=== PATIENT | male | born 1955 | race Caucasian/White ===

== ENCOUNTER → 2018-03-31 08:58 | Outpatient (CLI) | payer OTHER, SELFPAY ==
--- NOTE | 2018-03-31 09:10 | US_ITS ---
US gallbladder HISTORY: Abdominal pain ITS.REASON: acid reflux ORDERING PHYSICIAN: Richard Ramirez MD PATIENT AGE: 62 years Comparison: None FINDINGS: PANCREAS: Poorly demonstrated due to overlying bowel gas. LIVER: No focal liver lesions demonstrated. Homogeneous echogenicity. No intrahepatic biliary ductal dilatation evident. There is increased echogenicity of liver consistent with fatty liver RIGHT KIDNEY: Unremarkable. Normal size and echogenicity. No hydronephrosis GALLBLADDER: No gallstones, gallbladder wall thickening, pericholecystic fluid, or biliary dilatation. There is a small amount sludge in the gallbladder IMPRESSION: 1. No gallstones. 2. Small amount gallbladder sludge 3. Fatty liver
== END ==
PROVIDERS: Visit Provider Internal Medicine
DX: E78.5 Hyperlipidemia, unspecified (principal); I10 Essential (primary) hypertension; I20.9 Angina pectoris, unspecified; I25.10 Atherosclerotic heart disease of native coronary artery without angina pectoris; K21.9 Gastro-esophageal reflux disease without esophagitis; R06.00 Dyspnea, unspecified; R10.9 Unspecified abdominal pain; R94.31 Abnormal electrocardiogram [ECG] [EKG]; R94.39 Abnormal result of other cardiovascular function study
CPT/HCPCS: 76705

== ENCOUNTER → 2018-06-02 15:46 | Outpatient (CLI) | payer OTHER, SELFPAY | PROVIDERS: PCP Nurse Practitioner Family; Visit Provider Physician Assistant | DX: G47.33 Obstructive sleep apnea (adult) (pediatric) (principal); R06.83 Snoring; R40.0 Somnolence ==

== ENCOUNTER → 2018-07-10 14:10 | Outpatient (CLI) | payer OTHER, SELFPAY | PROVIDERS: PCP Nurse Practitioner Family; Visit Provider Physician Assistant | DX: G47.33 Obstructive sleep apnea (adult) (pediatric) (principal); R40.0 Somnolence; R06.83 Snoring | CPT/HCPCS: 95806 ==

== ENCOUNTER → 2018-07-21 07:14 | Outpatient (CLI) | payer OTHER, SELFPAY ==
--- NOTE | 2018-07-21 07:17 | NM_ITS ---
CARDIOLITE SPECT MYOCARDIAL PERFUSION LEXISCAN, REST AND STRESS: History: Coronary artery disease, hypertension, hyperlipidemia, tobacco use, family history, shortness of breath and fatigue Procedure: Patient received a 0.4 mg of intravenous Lexiscan, resting heart rate was 93 beats prominent resting blood pressure 146/74, with Lexiscan maximum heart rate achieved was 106 bpm which is less than 85% of the maximum predicted heart rate and a blood pressure was 123/74. With Lexiscan patient complained of stomach discomfort Electrocardiogram: Resting electrocardiogram showed sinus rhythm, with Lexiscan there is less than 1.[address] segment depression noted from the baseline EKG. The EKG portion of the Lexiscan Myoview is nondiagnostic. Cardiac stress and resting SPECT images: Cardiac stress and resting SPECT images were obtained using technetium 99 Myoview 31.6 mCi at stress and 10.4 mCi at rest, gated SPECT further analysis of segmental wall motion and calculation of the ejection fraction also done. Cardiac stress and rest images show uniform myocardial activity without segmental perfusion abnormality, computer derived ejection fraction is over 65% with no regional wall motion abnormality, right ventricle is normal size and contractility. Conclusion: 1. The EKG portion of the Lexiscan Myoview is nondiagnostic. 2. No scintigraphic evidence of reversible ischemia seen, computer derived ejection fraction is over 65% with no regional wall motion abnormality, right ventricle is normal size and contractility. 3. Normal Lexiscan Myoview study.
== END ==
PROVIDERS: PCP Internal Medicine; Visit Provider Internal Medicine
DX: I25.10 Atherosclerotic heart disease of native coronary artery without angina pectoris (principal); R06.09 Other forms of dyspnea; R94.31 Abnormal electrocardiogram [ECG] [EKG]; E78.5 Hyperlipidemia, unspecified; I10 Essential (primary) hypertension; K21.9 Gastro-esophageal reflux disease without esophagitis; R53.83 Other fatigue
CPT/HCPCS: 78452; 93017; A9502; J2785

== ENCOUNTER 2018-09-28 17:12 | Emergency (ER) | payer OTHER, SELFPAY ==
[2018-09-28 17:13] VITALS: BP 151/90; PULSE 109; RESP 18; TEMP 36.7; O2SAT 96; BMI 33.2
--- NOTE | 2018-09-28 17:17 | XR_ITS ---
XR chest 2V HISTORY: Cough, chest pain, smoker, heart disease ITS.REASON: CP ORDERING PHYSICIAN: Inocencio Corral MD PATIENT AGE: 63 years COMPARISON: None FINDINGS: The cardiomediastinal silhouette and pulmonary vascularity are within normal limits. There is patchy density in the right lung base posteriorly consistent with an area of atelectasis or infiltrate. No acute bony findings. IMPRESSION: Patchy atelectasis or infiltrate in the right lung base posteriorly
[2018-09-28 17:25] VITALS: BP 147/84; PULSE 104; O2SAT 95
[2018-09-28 17:29] LABS: Basophils % 0.1 % (0.1-2.0); Eosinophils % 0.2 % (0.1-12.0); Hematocrit 41.2 % (42.0-52.0); Hemoglobin 13.7 g/dL (14.1-18.0); Lymphocytes # 0.9 K/mm3 (0.7-4.5); Lymphocytes % 5.9 % (10-50); Mean Corpuscular HGB Conc 33.4 g/dL (31.8-35.4); Mean Corpuscular Hemoglobin 31.1 pg (27.0-31.2); Mean Corpuscular Volume 93.3 fl (80-94); Mean Platelet Volume 7.1 fl (7.4-10.4); Monocytes # 0.3 K/mm3 (0.1-1.0); Monocytes % 2.2 % (1.7-9.3); Neutrophils # 13.9 K/mm3 (1.8-7.8); Neutrophils % 91.6 % (37.0-80.0); Platelet Count 371 K/mm3 (142-424); Red Blood Count 4.41 M/mm3 (4.60-6.20); Red Cell Distribution Width 13.7 % (11.5-17.5); White Blood Count 15.1 K/mm3 (4.8-10.8)
[2018-09-28 17:33] LABS: MANUAL DIFFERENTIAL MANUAL DIFFERENTIAL (MANUAL DIFF)
[2018-09-28 17:42] LABS: Alanine Aminotransferase 34 U/L (12-78); Albumin Level 3.4 gm/dL (3.4-5.0); Albumin/Globulin Ratio 0.7 (1.1-1.8); Alkaline Phosphatase 70 U/L (46-116); Anion Gap 14.3 mEq/L (5-15); Aspartate Amino Transferase 22 U/L (15-37); Bilirubin,Total 0.7 mg/dL (0.2-1.0); Blood Urea Nitrogen 11 mg/dL (7-18); Calcium 9.2 mg/dL (8.5-10.1); Carbon Dioxide 26 mmol/L (21.0-32.0); Chloride 101 mmol/L (98-107); Creatinine Clearance Estimated 98 mL/min (50-200); Creatinine,Serum 1.24 mg/dL (0.70-1.30); Estimated Glomerular Filt Rate 59 ml/min (>60); GFR (African American) 72 ML/MIN (>60); Globulin 4.9 gm/dl (1.3-3.2); Glucose 137 mg/dL (74-106); Potassium 4.3 mmoL/L (3.5-5.1); Sodium 137 mmol/L (136-145); Total Protein,Serum 8.3 gm/dL (6.4-8.2)
[2018-09-28 17:45] LABS: Troponin I < 0.02 ng/ml (0.00-0.06)
--- NOTE | 2018-09-28 17:45 | HMH.EDCP ---
ED Disposition Clinical Impression: Pneumonia, COPD (chronic obstructive pulmonary disease), Atypical chest pain, Smoker Disposition: Home, Self-Care Condition on Discharge: Fair Instructions: Pneumonia-Adult Additional Instructions: rec. cancel colonoscopy Prescriptions: levoFLOXacin [Levaquin 750mg tablet] 750 mg PO DAILY #7 tab predniSONE [Prednisone 50mg Tab] 50 mg PO DAILY 5 Days #5 tab Referrals: Provider,Referral, MD [Primary Care Provider] - Time of Disposition: 19:40 - Critical Care Critical Care Time: No Attestation: On 09/28/18, the high probability of a clinically significant, sudden or life threatening deterioration of the following system(s) required my full and direct attention, intervention and personal management. The time I documented below is in addition to time spent performing reported procedures but includes the following listed in this critical care notation. Medical Decision Making - Medical Records Medical records reviewed: Yes: I reviewed the patient's medical records. - Deepak Inquiry Pt receiving controlled substance: No Deepak was queried for this patient: No Vital Signs: 09/28/18 17:13 09/28/18 17:25 Temperature 98.0 F Temperature Source Temporal Artery Scan Pulse Rate [Right Brachial] 109 H 104 H Respiratory Rate 18 Blood Pressure [Right Arm] 151/90 H 147/84 H Blood Pressure Mean [Right Arm] 110 105 Blood Pressure Source [Right Arm] Automatic Cuff Blood Pressure Position [Right Arm] Sitting 02 Sat by Pulse Oximetry 96 95 Oxygen Delivery Method Room Air - Lab Data Lab results reviewed: Yes: I reviewed the patient's lab results. Lab Results 09/28/18 17:20: WBC 15.1 H, RBC 4.41 L, Hgb 13.7 L, Hct 41.2 L, MCV 93.3, MCH 31.1, MCHC 33.4, RDW 13.7, Plt Count 371, MPV 7.1 L, Neut % (Auto) 91.6 H, Lymph % (Auto) 5.9 L, [place] % (Auto) 2.2, Eos % (Auto) 0.2, Baso % (Auto) 0.1, Neut # (Auto) 13.9 H, Lymph # (Auto) 0.9, [place] # (Auto) 0.3, Eos # (Auto) 0.0, Baso # (Auto) 0.0, Total Counted 100, Neutrophils % (Manual) 92 H, Lymphocytes % (Manual) 5 L, Monocytes % (Manual) 3, Platelet Estimate Normal, RBC Morphology Normal 09/28/18 17:20: Troponin I < 0.02 09/28/18 17:20: Sodium 137, Potassium 4.3, Chloride 101, Carbon Dioxide 26, Anion Gap 14.3, BUN 11, Creatinine 1.24, Estimated Creat Clear 98, Estimated GFR 59, Est GFR ( Amer) 72, Glucose 137 H, Calcium 9.2, Total Bilirubin 0.7, AST 22, ALT 34, Alkaline Phosphatase 70, Total Protein 8.3 H, Albumin 3.4, Globulin 4.9 H, Albumin/Globulin Ratio 0.7 L 09/28/18 17:20: D-Dimer < 100 09/28/18 17:20: Lipase 67 L Result diagrams: 09/28/18 17:20 09/28/18 17:20 Orders (Tests/Meds): ED MEDICATIONS Generic Name Dose Route Start Last Admin Trade Name Freq PRN Reason Stop Dose Admin Levofloxacin 750 mg 09/28/18 19:34 Levaquin 750mg Tablet PO 09/28/18 19:35 ONCE ONE Protocol Methylprednisolone Sodium Succinate 125 mg 09/28/18 19:34 Solu-Medrol 125mg/2ml Vial IV 09/28/18 19:35 ONCE ONE Discontinued Medications Generic Name Dose Route Start Last Admin Trade Name Freq PRN Reason Stop Dose Admin Aspirin 324 mg 09/28/18 17:19 09/28/18 17:46 Aspirin 81mg Chewable Tablet PO 09/28/18 17:20 324 mg ONCE ONE Administration - HARMEET Score for Non-Stemi Age of Patient: 60-69 years old Heart Rate: 90-109 bpm Systolic Blood Pressure: 140-159 mmHg Serum Creatinine: 1.20-1.59 mg/dl CHF [place] Class: I-No CHF Other Risk Factors: None Non-Stemi Risk Score: 107 Chest Pain HPI - General Chief Complaint: Chest Pain Stated Complaint: CHEST PAIN Time Seen by Provider: 09/28/18 17:20 Mode of Arrival: Wheelchair Limitations: No Limitations Description of Symptoms (Recalled from ER Triage Doc. by RN): CHEST PAIN EPISODE THIS MORNING THAT DIDN'T LAST VERY LONG ; STATES IT WAS SIMILAR TO THE EVENT HE HAD EARLIER IN YEAR OUT OF STATE WHEN HE GOT STENTS - History of Present Illness HPI isaiah
--- NOTE | 2018-09-28 17:48 | ED_ITS ---
ED Disposition Clinical Impression: Pneumonia, COPD (chronic obstructive pulmonary disease), Atypical chest pain, Smoker Disposition: Home, Self-Care Condition on Discharge: Fair Instructions: Pneumonia-Adult Additional Instructions: rec. cancel colonoscopy Prescriptions: levoFLOXacin [Levaquin 750mg tablet] 750 mg PO DAILY #7 tab predniSONE [Prednisone 50mg Tab] 50 mg PO DAILY 5 Days #5 tab Referrals: Provider,Referral, MD [Primary Care Provider] - Time of Disposition: 19:40 - Critical Care Critical Care Time: No Attestation: On 09/28/18, the high probability of a clinically significant, sudden or life threatening deterioration of the following system(s) required my full and direct attention, intervention and personal management. The time I documented below is in addition to time spent performing reported procedures but includes the following listed in this critical care notation. Medical Decision Making - Medical Records Medical records reviewed: Yes: I reviewed the patient's medical records. - Deepak Inquiry Pt receiving controlled substance: No Deepak was queried for this patient: No Vital Signs: 09/28/18 17:13 09/28/18 17:25 Temperature 98.0 F Temperature Source Temporal Artery Scan Pulse Rate [Right Brachial] 109 H 104 H Respiratory Rate 18 Blood Pressure [Right Arm] 151/90 H 147/84 H Blood Pressure Mean [Right Arm] 110 105 Blood Pressure Source [Right Arm] Automatic Cuff Blood Pressure Position [Right Arm] Sitting 02 Sat by Pulse Oximetry 96 95 Oxygen Delivery Method Room Air - Lab Data Lab results reviewed: Yes: I reviewed the patient's lab results. Lab Results 09/28/18 17:20: WBC 15.1 H, RBC 4.41 L, Hgb 13.7 L, Hct 41.2 L, MCV 93.3, MCH 31.1, MCHC 33.4, RDW 13.7, Plt Count 371, MPV 7.1 L, Neut % (Auto) 91.6 H, Lymph % (Auto) 5.9 L, [place] % (Auto) 2.2, Eos % (Auto) 0.2, Baso % (Auto) 0.1, Neut # (Auto) 13.9 H, Lymph # (Auto) 0.9, [place] # (Auto) 0.3, Eos # (Auto) 0.0, Baso # (Auto) 0.0, Total Counted 100, Neutrophils % (Manual) 92 H, Lymphocytes % (Manual) 5 L, Monocytes % (Manual) 3, Platelet Estimate Normal, RBC Morphology Normal 09/28/18 17:20: Troponin I < 0.02 09/28/18 17:20: Sodium 137, Potassium 4.3, Chloride 101, Carbon Dioxide 26, Anion Gap 14.3, BUN 11, Creatinine 1.24, Estimated Creat Clear 98, Estimated GFR 59, Est GFR ( Amer) 72, Glucose 137 H, Calcium 9.2, Total Bilirubin 0.7, AST 22, ALT 34, Alkaline Phosphatase 70, Total Protein 8.3 H, Albumin 3.4, Globulin 4.9 H, Albumin/Globulin Ratio 0.7 L 09/28/18 17:20: D-Dimer < 100 09/28/18 17:20: Lipase 67 L Result diagrams: 09/28/18 17:20 09/28/18 17:20 Orders (Tests/Meds): ED MEDICATIONS Generic Name Dose Route Start Last Admin Trade Name Freq PRN Reason Stop Dose Admin Levofloxacin 750 mg 09/28/18 19:34 Levaquin 750mg Tablet PO 09/28/18 19:35 ONCE ONE Protocol Methylprednisolone Sodium Succinate 125 mg 09/28/18 19:34 Solu-Medrol 125mg/2ml Vial IV 09/28/18 19:35 ONCE ONE Discontinued Medications Generic Name Dose Route Start Last Admin Trade Name Freq PRN Reason Stop Dose Admin Aspirin 324 mg 09/28/18 17:19 09/28/18 17:46
[2018-09-28 17:49] LABS: Lipase 67 u/L (73-393)
[2018-09-28 17:50] LABS: D-Dimer < 100 ng/mL (0-400)
[2018-09-28 18:05] LABS: Lymphocytes % 5 % (10-50); Monocytes % 3 % (2-9); Neutrophils % 92 % (42-76); Total Cells Counted 100
[2018-09-28 18:06] LABS: Platelet Estimate Normal; RBC Morphology Normal
[2018-09-28 19:55] VITALS: BP 140/87; PULSE 65; RESP 20; TEMP 37; O2SAT 98
== END 2018-09-28 19:56 | disposition home or self-care (01) ==
PROVIDERS: Emergency Provider Emergency Medicine
DX: J18.9 Pneumonia, unspecified organism (principal); J44.9 Chronic obstructive pulmonary disease, unspecified; I25.10 Atherosclerotic heart disease of native coronary artery without angina pectoris; I10 Essential (primary) hypertension; E78.5 Hyperlipidemia, unspecified; E03.9 Hypothyroidism, unspecified; F17.210 Nicotine dependence, cigarettes, uncomplicated; Z79.899 Other long term (current) drug therapy
CPT/HCPCS: 71046; 80053; 83690; 84484; 85007; 85025; 85378; 93005; 96374; 99283

== ENCOUNTER 2019-06-16 23:43 | Observation (INO) ==
[2019-06-17 00:12] LABS: Basophils # 0.1 K/mm3 (0-0.2); Basophils % 0.9 % (0.1-2.0); Eosinophils # 0.1 K/mm3 (0.0-0.4); Eosinophils % 1.5 % (0.1-12.0); Hematocrit 40.4 % (42.0-52.0); Hemoglobin 12.5 g/dL (14.1-18.0); Lymphocytes # 1.8 K/mm3 (0.7-4.5); Lymphocytes % 30.4 % (10-50); Mean Corpuscular HGB Conc 30.9 g/dL (31.8-35.4); Mean Corpuscular Volume 94.2 fl (80-94); Mean Platelet Volume 7.5 fl (7.4-10.4); Monocytes # 0.6 K/mm3 (0.1-1.0); Monocytes % 10.5 % (1.7-9.3); Neutrophils # 3.4 K/mm3 (1.8-7.8); Neutrophils % 56.6 % (37.0-80.0); Platelet Count 310 K/mm3 (142-424); Red Blood Count 4.29 M/mm3 (4.60-6.20); Red Cell Distribution Width 14.6 % (11.5-17.5)
[2019-06-17 00:32] LABS: Albumin Level 3.5 g/dL (3.4-5.0); Albumin/Globulin Ratio 0.7 (1.1-1.8); Anion Gap 13.8 mEq/L (5-15); Bilirubin,Total 0.3 mg/dL (0.2-1.0); Calcium 8.3 mg/dL (8.5-10.1); Globulin 4.7 gm/dl (1.3-3.2); Thyroid Stimulating Hormone 5.28 uIU/ml (0.358-3.740); Total Protein,Serum 8.2 g/dL (6.4-8.2)
--- NOTE | 2019-06-17 01:32 | Emergency Department Note ---
ED Disposition Clinical Impression: Chest pain Qualifiers: Chest pain type: unspecified Qualified Code(s): R07.9 - Chest pain, unspecified Disposition: Admitted as Observation Condition on Discharge: Good - Critical Care Critical Care Time: No Attestation: On 06/16/19, the high probability of a clinically significant, sudden or life threatening deterioration of the following system(s) required my full and direct attention, intervention and personal management. The time I documented below is in addition to time spent performing reported procedures but includes the following listed in this critical care notation. Medical Decision Making - Medical Records Medical records reviewed: Yes: I reviewed the patient's medical records. - Deepak Inquiry Pt receiving controlled substance: No Vital Signs: 06/16/19 23:54 06/17/19 00:38 06/17/19 01:32 Temperature 97.7 F Temperature Source Oral Pulse Rate [Right Brachial] 96 H 81 78 Respiratory Rate 18 Blood Pressure [Right Arm] 173/69 H 132/72 131/45 L Blood Pressure Mean [Right Arm] 103 92 73 Blood Pressure Source [Right Arm] Automatic Cuff Automatic Cuff Automatic Cuff Blood Pressure Position [Right Arm] Sitting Sitting Sitting 02 Sat by Pulse Oximetry 96 94 L 95 Oxygen Delivery Method Room Air Room Air 06/17/19 02:07 06/17/19 02:30 Temperature Temperature Source Pulse Rate [Right Brachial] 84 76 Respiratory Rate Blood Pressure [Right Arm] 149/79 H 140/77 Blood Pressure Mean [Right Arm] 102 98 Blood Pressure Source [Right Arm] Automatic Cuff Automatic Cuff Blood Pressure Position [Right Arm] Sitting Sitting 02 Sat by Pulse Oximetry 97 95 Oxygen Delivery Method Room Air - Lab Data Lab results reviewed: Yes: I reviewed the patient's lab results. Lab Results 06/16/19 23:49: WBC 6.0, RBC 4.29 L, Hgb 12.5 L, Hct 40.4 L, MCV 94.2 H, MCH 29.1, MCHC 30.9 L, RDW 14.6, Plt Count 310, MPV 7.5, Neut % (Auto) 56.6, Lymph % (Auto) 30.4, [place] % (Auto) 10.5 H, Eos % (Auto) 1.5, Baso % (Auto) 0.9, Neut # (Auto) 3.4, Lymph # (Auto) 1.8, [place] # (Auto) 0.6, Eos # (Auto) 0.1, Baso # (Auto) 0.1 06/16/19 23:49: Sodium 142, Potassium 3.8, Chloride 104, Carbon Dioxide 28, Anion Gap 13.8, BUN 14, Creatinine 1.13, Estimated Creat Clear 99, Estimated GFR 66, Est GFR ( Amer) 80, Glucose 104, Calcium 8.3 L, Total Bilirubin 0.3, AST 21, ALT 22, Alkaline Phosphatase 62, Troponin I 0.10 H, Total Protein 8.2, Albumin 3.5, Globulin 4.7 H, Albumin/Globulin Ratio 0.7 L, TSH 5.28 H 06/16/19 23:49: B-Natriuretic Peptide 10 Result diagrams: 06/16/19 23:49 06/16/19 23:49 Orders (Tests/Meds): ORDERS Category Date Time Status Chest XR 2 view (NOT portable) [XR chest 2V] Stat Exams 06/17/19 00:00 Taken Troponin I Q3H Lab 06/17/19 03:00 Ordered Troponin I Q3H Lab 06/17/19 06:00 Ordered - Radiology Data #1 Image(s): Chest Image Reviewed: Yes I reviewed the patient's radiology image Preliminary Findings: Normal/NAD - ECG Data Tracing #1 Normal Sinus Rhythm: Yes Ischemic changes: non-specific ST-T wave changes - Physician Consults Physician Consulted: gerard Reason -: Admission Dizzy HPI - General Chief Complaint: Dizziness Stated Complaint: Hypertension Time Seen by Provider: 06/17/19 00:30 Mode of Arrival: EMS Source of Information: Patient, Spouse, EMS, Medical Record Limitations: No Limitations Description of Symptoms (Recalled from ER Triage Doc. by RN): pt arrives after having a hypertensive episode at [facility]. according to patient, he was fine one minute then "felt like it was out of body the next"; currently denies chest pain, but said he had recent discomfort. denies dyspnea, slightly nauseated however on scene. pt was transported via ems after checking his bp with a home machine and found it to be elevated. - History of Present Illness HPI Narrative: pt with 2 episodes at home of feeling sweaty and nausea with dizzyness and lt upper ext pain - he has hx of cad with stent in 04/18 and uses tob - feels better at this time MD complaint: dizziness, near syncope Onset (ago): hour(s) Timing: sudden onset History of similar episodes: No History of trauma: No Severity: moderate Associated symptoms: diaphoresis - Related Data Home Medications Medication Instructions Recorded Confirmed aspirin 81 mg tablet,delayed 81 mg PO DAILY 03/22/18 01/17/19 release Pantoprazole Sodium [Protonix 40mg 40 mg PO DAILY 09/26/18 01/17/19 tablet] levothyroxine 88 mcg tablet 125 mcg PO DAILY tab 01/17/19 01/17/19 naproxen 500 mg tablet 500 mg PO DAILY tab 01/17/19 01/17/19 Previous Rx's Medication Instructions Recorded amlodipine 5 mg tablet 5 mg PO DAILY #30 tab 01/17/19 atorvastatin 80 mg tablet 80 mg PO DAILY #30 tab 01/17/19 clopidogrel 75 mg tablet 75 mg PO DAILY #30 tab 01/17/19 losartan 100 mg tablet 100 mg PO DAILY #30 tab 02/06/19 nitroglycerin 0.4 mg sublingual 0.4 mg SUBLINGUAL Q5-15M PRN #25 05/21/19 tablet tab Allergies Allergy/AdvReac Type Severity Reaction Status Date / Time No Known Allergies Allergy Verified 01/17/19 09:46 [facility] History - Hepatitis A Screen Drug use history?: No High risk sexual behaviors?: No History of sexually transmitted infection?: No Currently employed?: No Childcare worker?: No Do you have indoor plumbing?: Yes Do you have electricity?: Yes Attestation statement:: This patient has been screened for Hepatitis A risk factors. I have reviewed the patient's past medical history: Yes Medical History: Reports:: Coronary Artery Disease, Hyperlipidemia, Hypertension, Lung Disease Denies:: Diabetes Mellitus Type 1, Diabetes Mellitus Type 2, Internal Pacemaker, Seizures Other Medical History: Reports: Hypothyroidism Laterality Cases: Bilateral: Tonsillectomy Other Surgeries: Yes: Cardiac Catheterization, Coronary Stent, Other. No: Pacemaker Amputation: No Fractures: No - Social History Smoking Status: Current every day smoker Tobacco Type: cigarettes # Packs/Day (cigarettes): 1 #Yrs smoked (if former smoker): 48 Alcohol Intake: never Substance Use Type: former substance user, methamphetamine, crack/cocaine, marijuana Occupational Status: employed Household Members: significant other Family Hx:: Coronary Artery Disease, Heart Attack Comment: Father- at 57 from a [place]. Brother-CAD ROS Obtained: Yes All systems reviewed & no additional complaints - Constitutional Constitutional: Denies fever(s) - Eyes Eyes: Denies change in vision - ENT Ears, Nose, Mouth, and Throat: Reports dizziness, Denies sore throat - Cardiovascular Cardiovascular: Reports as per HPI, Denies chest pain, Denies dyspnea, Reports lightheadedness - Respiratory Respiratory: No cough - Gastrointestinal Gastrointestingal: Denies: abdominal pain - Genitourinary Male Genitourinary: Denies hematuria - Musculoskeletal Musculoskeletal: Denies joint pain, Denies joint swelling - Integumentary/Breasts Skin/Breast: Denies rash - Neurologic Neurologic: Denies confusion, Denies focal weakness, Denies seizure-like activity Physical Exam - General General appearance: alert, in no apparent distress - Head Head exam: normocephalic - Eye Eye exam: Present: PERRL, EOMI. Absent: scleral icterus - ENT ENT exam: Present: mucous membranes dry - Neck Neck exam: Present: trachea midline - Respiratory Respiratory exam: Present: normal lung sounds bilaterally. Absent: respiratory distress - Cardiovascular Cardiovascular exam: Present: regular rate, systolic murmur, +S4 - Abdominal Exam Abdominal exam: Present: soft. Absent: tenderness, guarding, rebound, rigidity - Extremities Exam Extremities exam: Present: full ROM. Absent: calf tenderness - Neurological Exam Neurological exam: Present: alert, oriented X3, CN II-XII intact - Psychiatric Psychiatric exam: Present: normal affect - Skin Skin exam: Absent: rash
[2019-06-17 08:00] LABS: Basophils # 0.1 K/mm3 (0-0.2); Basophils % 0.8 % (0.1-2.0); Eosinophils # 0.1 K/mm3 (0.0-0.4); Eosinophils % 1.3 % (0.1-12.0); Hematocrit 37.2 % (42.0-52.0); Hemoglobin 11.8 g/dL (14.1-18.0); Lymphocytes % 36.2 % (10-50); Mean Corpuscular HGB Conc 31.8 g/dL (31.8-35.4); Mean Corpuscular Volume 93.9 fl (80-94); Mean Platelet Volume 7.6 fl (7.4-10.4); Monocytes # 0.4 K/mm3 (0.1-1.0); Monocytes % 8.2 % (1.7-9.3); Neutrophils # 2.9 K/mm3 (1.8-7.8); Neutrophils % 53.4 % (37.0-80.0); Platelet Count 283 K/mm3 (142-424); Red Blood Count 3.96 M/mm3 (4.60-6.20); Red Cell Distribution Width 14.6 % (11.5-17.5); White Blood Count 5.4 K/mm3 (4.8-10.8)
[2019-06-17 08:18] LABS: Anion Gap 9.9 mEq/L (5-15); Calcium 8.3 mg/dL (8.5-10.1); Chol/HDL Ratio 3.7 (1-3.5)
--- NOTE | 2019-06-17 09:45 | Pharmacy Consult Notes ---
[facility] Pharmacy VTE Monitoring - Patient Demographics Admission date: 06/17/19 Report Date: 06/17/19 Time: 09:45 Allergies/Adverse Reactions: Patient Allergies No Known Allergies Allergy (Verified 01/17/19 09:46) Height: 1.83 m Weight: 96.19 kg Patient Problems: Current Active Problems Chest pain (Acute) - VTE Risk Labs: VTE Related Lab Results Hgb 11.8 g/dL (14.1-18.0) L 06/17/19 07:25 Hct 37.2 % (42.0-52.0) L 06/17/19 07:25 Plt Count 283 K/mm3 (142-424) 06/17/19 07:25 BUN 11 mg/dL (7-18) 06/17/19 07:25 Creatinine 1.06 mg/dL (0.70-1.30) 06/17/19 07:25 Estimated Creat Clear 100 mL/min (50-200) 06/17/19 07:25 Was VTE Risk Assessment Performed: No VTE Score: 4 VTE Risk Level: Low Risk - Prophylaxis Types of VTE Prophylaxis: TEDS Knee High (BEN HOSE ORDER PLACED)
--- NOTE | 2019-06-17 13:27 | History & Physical Report ---
*Admission Date: 06/17/19 *Chief complaint: anginal pain, legs weak, left arm tingling. *History of present illness: Pleasant 63-year-old gentleman with extensive history of tobacco abuse, hypertension, coronary artery disease, hyperlipidemia who presented to the ER yesterday via EMS due to onset of left arm pain and weakness in his legs. He states he was at home yesterday evening when he began to notice a warming sensation and weakness in his legs going from his feet and progressive up his thighs. It was around this time as well he started to feel tingling pain radiating down his left arm. He had his grabbed his home blood pressure cuff and found that his blood pressure was approximately 170-180/100. He felt very weak, difficulty walking, "was walking like those people that have a stroke". He denies any chest pain, shortness of breath, nausea, vomiting, headache, confusion. No facial droop or weakness. Has been taking his losartan 100 mg daily and amlodipine 5 mg daily in the morning without side effect. Of note was cathed by cardiology in April 2018 with placement of stent in his LAD and is on dual antiplatelet therapy, statin, ARB at this time. Initial labs concerning for slight elevation in troponin with vitals showing hypertension. EKG with no ST changes, T wave abnormalities, and normal sinus rhythm. Admitted for observation overnight with serial troponins. Of note he is not on a beta-sukhdev. Assessment today, patient is pain-free. Stable on telemetry with mild hypertension but no longer having symptoms of arm pain or warmth/tingling in his legs. Discussed his concerning findings/presentation with him. Patient has risk factors of previous coronary artery disease necessitating stenting, extensive smoking history, Cardiology consult placed, will have them see patient in the morning to discuss further advancement of medical management versus more invasive work-up. [facility] History I have reviewed the patient's past medical history: Yes Medical History: Reports:: Coronary Artery Disease, Hyperlipidemia, Hypertension, Lung Disease Denies:: Diabetes Mellitus Type 1, Diabetes Mellitus Type 2, Internal Pacemaker, Seizures *Have you ever received a pneumonia vaccine?: No *Have you received a flu vaccine this season?: Yes Other Medical History: Reports: Hypothyroidism Laterality Cases: Bilateral: Tonsillectomy Other Surgeries: Yes: Cardiac Catheterization, Coronary Stent, Other. No: Pacemaker Amputation: No Fractures: No - *Social History Educational Level: Completed GED/General Educational Development Smoking Status: Current every day smoker Tobacco Type: cigarettes # Packs/Day (cigarettes): 2 #Yrs smoked (if former smoker): 48 Alcohol Intake: never Substance Use Type: former substance user, methamphetamine, crack/cocaine, marijuana *Occupational Status:: employed Household Members: significant other *Travel in the last 8 weeks: Inside the [place] Family Hx:: Heart Attack, Hyperlipidemia, Alcoholism Review of Systems - Review of Systems Review of systems:: pertinent systems reviewed and negative unless documented below (14 point review of systems performed, pertinent positives and negatives as per HPI) - *Neurologic Reports dizziness, Denies confusion, Denies localized weakness, Denies seizure- like activity Meds Home Medications Medication Instructions Recorded Confirmed Type aspirin 81 mg tablet,delayed 81 mg PO DAILY 03/22/18 06/17/19 History release Pantoprazole Sodium [Protonix 40mg 40 mg PO DAILY 09/26/18 06/17/19 History tablet] amlodipine 5 mg tablet 5 mg PO DAILY #30 tab 01/17/19 06/17/19 Rx atorvastatin 80 mg tablet 80 mg PO DAILY #30 tab 01/17/19 06/17/19 Rx clopidogrel 75 mg tablet 75 mg PO DAILY #30 tab 01/17/19 06/17/19 Rx levothyroxine 88 mcg tablet 125 mcg PO DAILY tab 01/17/19 06/17/19 History naproxen 500 mg tablet 500 mg PO DAILY tab 01/17/19 06/17/19 History losartan 100 mg tablet 100 mg PO DAILY #30 tab 02/06/19 06/17/19 Rx nitroglycerin 0.4 mg sublingual 0.4 mg SUBLINGUAL Q5-15M PRN #25 05/21/19 06/17/19 Rx tablet tab buPROPion HCL [Wellbutrin SR 150mg 150 mg PO BID 06/17/19 06/17/19 History Tablet] Allergies Allergy/AdvReac Type Severity Reaction Status Date / Time No Known Allergies Allergy Verified 01/17/19 09:46 Exam Vital signs and Labs for Last 24 Hours: Temp Pulse Resp BP Pulse Ox 98.1 F 90 18 148/62 H 95 06/17/19 11:39 06/17/19 12:00 06/17/19 11:39 06/17/19 11:39 06/17/19 11:39 Laboratory Results - last 24 hr 06/16/19 23:49: WBC 6.0, RBC 4.29 L, Hgb 12.5 L, Hct 40.4 L, MCV 94.2 H, MCH 29.1, MCHC 30.9 L, RDW 14.6, Plt Count 310, MPV 7.5, Neut % (Auto) 56.6, Lymph % (Auto) 30.4, [place] % (Auto) 10.5 H, Eos % (Auto) 1.5, Baso % (Auto) 0.9, Neut # (Auto) 3.4, Lymph # (Auto) 1.8, [place] # (Auto) 0.6, Eos # (Auto) 0.1, Baso # (Auto) 0.1 06/16/19 23:49: Sodium 142, Potassium 3.8, Chloride 104, Carbon Dioxide 28, Anion Gap 13.8, BUN 14, Creatinine 1.13, Estimated Creat Clear 99, Estimated GFR 66, Est GFR ( Amer) 80, Glucose 104, Calcium 8.3 L, Total Bilirubin 0.3, AST 21, ALT 22, Alkaline Phosphatase 62, Troponin I 0.10 H, Total Protein 8.2, Albumin 3.5, Globulin 4.7 H, Albumin/Globulin Ratio 0.7 L, TSH 5.28 H 06/16/19 23:49: B-Natriuretic Peptide 10 06/17/19 03:15: Troponin I 0.10 H 06/17/19 07:25: WBC 5.4, RBC 3.96 L, Hgb 11.8 L, Hct 37.2 L, MCV 93.9, MCH 29.9, MCHC 31.8, RDW 14.6, Plt Count 283, MPV 7.6, Neut % (Auto) 53.4, Lymph % (Auto) 36.2, [place] % (Auto) 8.2, Eos % (Auto) 1.3, Baso % (Auto) 0.8, Neut # (Auto) 2.9, Lymph # (Auto) 2.0, [place] # (Auto) 0.4, Eos # (Auto) 0.1, Baso # (Auto) 0.1 06/17/19 07:25: Sodium 143, Potassium 3.9, Chloride 108 H, Carbon Dioxide 29, Anion Gap 9.9, BUN 11, Creatinine 1.06, Estimated Creat Clear 100, Estimated GFR 71, Est GFR ( Amer) 86, Glucose 97, Calcium 8.3 L, Magnesium 1.7, Troponin I 0.10 H, Triglycerides 133, Cholesterol 100 L, LDL Cholesterol 46, VLDL Cholesterol 27, HDL Cholesterol 27, Cholesterol/HDL Ratio 3.7 H I & O for Last 24 hours: Intake & Output 06/14/19 06/15/19 06/16/19 06/17/19 23:59 23:59 23:59 23:59 Intake Total 120 / 120 Balance 120 / 120 Weight 102.058 kg 96.19 kg - Constitutional no acute distress Comments: overweight - *Routine HEENT Exam Head: Present: normocephalic Eye: Present: EOMI, PERRL ENT: Present: mucous membranes moist - *Routine Neck Exam Present: supple. Absent: lymphadenopathy - *Routine Respiratory Exam Present: wheezes. Absent: accessory muscle use, rhonchi, crackles Comments: Good air movement bilaterally - *Routine Cardiovascular Exam Present: RRR. Absent: murmur - *Routine Abdominal Exam Present: soft, normoactive bowel sounds. Absent: tenderness - *Routine Extremities Exam Absent: cyanosis, clubbing, edema - *Routine Skin Exam Present: warm. Absent: rash - *Routine Neurological Exam Present: alert, oriented X3 Assessment and Plan (1) Tobacco use disorder Current visit: Yes Status: Chronic Category: Medical Code(s): F17.200 - Nicotine dependence, unspecified, uncomplicated (2) NSTEMI (non-ST elevated myocardial infarction) Current visit: Yes Status: Acute Category: Medical Code(s): I21.4 - Non-ST elevation (NSTEMI) myocardial infarction (3) Chest pain Current visit: Yes Status: Resolved Qualifiers: Chest pain type: unspecified Qualified Code(s): R07.9 - Chest pain, unspecified Category: Medical Code(s): R07.9 - Chest pain, unspecified (4) COPD (chronic obstructive pulmonary disease) Current visit: No Status: Chronic Category: Medical Code(s): J44.9 - Chronic obstructive pulmonary disease, unspecified (5) CAD (coronary artery disease) Current visit: No Status: Chronic Qualifiers: Coronary Disease-Associated Artery/Lesion type: [place] artery [place] vs. transplanted heart: [place] heart Associated angina: without angina Qualified Code(s): I25.10 - Atherosclerotic heart disease of [place] coronary artery without angina pectoris Category: Medical Code(s): I25.10 - Atherosclerotic heart disease of [place] coronary artery without angina pectoris (6) HHD (hypertensive heart disease) Current visit: No Status: Chronic Qualifiers: Heart failure presence: without heart failure Qualified Code(s): I11.9 - Hypertensive heart disease without heart failure Category: Medical Code(s): I11.9 - Hypertensive heart disease without heart failure (7) HLD (hyperlipidemia) Current visit: No Status: Chronic Qualifiers: Hyperlipidemia type: unspecified Qualified Code(s): E78.5 - Hyperlipidemia, unspecified Category: Medical Code(s): E78.5 - Hyperlipidemia, unspecified - Assessment and plan all Dx Assessment and Plan for all problems:: 63-year-old gentleman with history of coronary artery disease and stent a little over a year ago who presented with NSTEMI, hypertensive urgency, and unstable angina. Improvement with decrease in his blood pressure. Troponins monitored with stable serial results. Continue home medications, will increase amlodipine. Additionally have added low-dose beta-sukhdev and long-acting nitrate. Consult for cardiology placed, further management pending their recommendations. Breathing treatments for COPD. Monitor on telemetry. Patient at high risk for repeat event, condition stable, prognosis fair. Full code Continues to require inpatient management Resumed bupropion for smoking cessation, declined NRT patch at this time.
[2019-06-18 06:41] LABS: Basophils # 0.1 K/mm3 (0-0.2); Basophils % 0.6 % (0.1-2.0); Eosinophils # 0.2 K/mm3 (0.0-0.4); Eosinophils % 1.9 % (0.1-12.0); Hematocrit 37.8 % (42.0-52.0); Lymphocytes # 2.4 K/mm3 (0.7-4.5); Lymphocytes % 24.8 % (10-50); Mean Corpuscular HGB Conc 31.7 g/dL (31.8-35.4); Mean Corpuscular Volume 92.1 fl (80-94); Mean Platelet Volume 7.3 fl (7.4-10.4); Monocytes # 0.6 K/mm3 (0.1-1.0); Monocytes % 6.1 % (1.7-9.3); Neutrophils # 6.4 K/mm3 (1.8-7.8); Neutrophils % 66.7 % (37.0-80.0); Platelet Count 316 K/mm3 (142-424); Red Blood Count 4.11 M/mm3 (4.60-6.20); Red Cell Distribution Width 14.5 % (11.5-17.5); White Blood Count 9.5 K/mm3 (4.8-10.8)
[2019-06-18 06:54] LABS: Calcium 8.5 mg/dL (8.5-10.1)
--- NOTE | 2019-06-18 07:58 | Consult Report ---
History of Present Illness Consult date: 06/18/19 Requesting physician: Solo Byrd Consult reason: hypertension Chief complaint: Elevated BP, left arm discomfort Additional Medical History:: 1. CAD A. [facility], 04/2018, ANGIOGRAPHIC RESULTS: 1. The left main artery normal 2. The left anterior descending artery has proximal 50-70% stenosis with remaining vessel widely patent. 2 diagonal arteries are present in the proximal and mid segment both vein jailed by the stent however having DARREL-3 flow distally 3. The circumflex artery is a nondominant yet still large vessel giving rise to a 3 mm first obtuse marginal artery has proximal 50-60% stenosis 4. The right coronary artery is a dominant vessel and has mid vessel 40 followed by 50% stenosis with distal 40 and 50% stenoses in the posterior lateral branch 5. The MOORE ventriculogram reveals normal 65% 6. The left ventricular end-diastolic pressure 20 mmHg IMPRESSION: 1. Hemodynamically severe disease in the proximal LAD producing an FFR index of 0.77 2. Successful stenting of the proximal to mid LAD severe disease reduced to 0% with 1 drug-eluting stent 3. Moderate to severe disease in the first obtuse marginal artery 4. Moderate to severe disease in the dominant right coronary artery which produced an FFR index of 0.85 5. Normal ejection fraction 6. Mildly elevated LVEDP PLAN: 1. Brilinta and aspirin 2. LDL less than 55 3. Avoidance of tobacco products 4. Cardiac rehabilitation 5. Risk factor modification 6. Continue with antianginal medications. Should patient experiences recalcitrant angina consideration will be given to perform FFR of the obtuse marginal artery and possibly the diagonal arteries however I believe these 2 lesions are not going to be the etiology of patient's angina although it is always possible. We will continue to evaluate a should clinically B. [facility] myoview, 05/2018, 1. The EKG portion of the Lexiscan Myoview is nondiagnostic. 2. No scintigraphic evidence of reversible ischemia seen, computer derived ejection fraction is over 65% with no regional wall motion abnormality, right ventricle is normal size and contractility. 3. Normal Lexiscan Myoview study 2. Tobacco use 3. HTN 4. HLD History of present illness: 63 yo WM with tobacco use and prior coronary stenting in 04/2018 presented to ER via EMS for evaluation of elevated BP in setting of brief blurred vision, RLE cramping and LUE numbness/tingling with associated nausea. No chest pain or increased SOA noted. Denies recent exertional CP. Some recent stress with attempting to renew his job (unable to lift 65 lbs from floor to overhead without stopping). BP noted to be elevated at home but highest documented BP in ER is 173/69 mm Hg. Pt was started on home meds plus BB and long acting nitrate with control of BP acheived and no further symptoms noted. Elevated troponins noted at 0.1 X 3. EKG is sinus without acute changes. History of LAD SAM in 04/2018 with remaining branch disease treated medically. He remains on DAPT. Cardiology consulted for evaluation. [facility] History Medical History: Reports:: Coronary Artery Disease, Hyperlipidemia, Hypertension, Lung Disease Denies:: Diabetes Mellitus Type 1, Diabetes Mellitus Type 2, Internal Pacemaker, Seizures *Have you ever received a pneumonia vaccine?: No *Have you received a flu vaccine this season?: Yes Other Medical History: Reports: Hypothyroidism Laterality Cases: Bilateral: Tonsillectomy Other Surgeries: Yes: Cardiac Catheterization, Coronary Stent, Other. No: Pacemaker Amputation: No Fractures: No - *Social History Educational Level: Completed GED/General Educational Development Smoking Status: Current every day smoker Tobacco Type: cigarettes # Packs/Day (cigarettes): 2 #Yrs smoked (if former smoker): 48 Alcohol Intake: never Substance Use Type: former substance user, methamphetamine, crack/cocaine, marijuana *Occupational Status:: employed Household Members: significant other *Travel in the last 8 weeks: Inside the [facility] Family Hx:: Heart Attack, Hyperlipidemia, Alcoholism Meds Home Medications Medication Instructions Recorded Confirmed Type aspirin 81 mg tablet,delayed 81 mg PO DAILY 03/22/18 06/17/19 History release Pantoprazole Sodium [Protonix 40mg 40 mg PO DAILY 09/26/18 06/17/19 History tablet] amlodipine 5 mg tablet 5 mg PO DAILY #30 tab 01/17/19 06/17/19 Rx atorvastatin 80 mg tablet 80 mg PO DAILY #30 tab 01/17/19 06/17/19 Rx clopidogrel 75 mg tablet 75 mg PO DAILY #30 tab 01/17/19 06/17/19 Rx levothyroxine 88 mcg tablet 125 mcg PO DAILY tab 01/17/19 06/17/19 History naproxen 500 mg tablet 500 mg PO DAILY tab 01/17/19 06/17/19 History losartan 100 mg tablet 100 mg PO DAILY #30 tab 02/06/19 06/17/19 Rx nitroglycerin 0.4 mg sublingual 0.4 mg SUBLINGUAL Q5-15M PRN #25 05/21/19 06/17/19 Rx tablet tab buPROPion HCL [Wellbutrin SR 150mg 150 mg PO BID 06/17/19 06/17/19 History Tablet] Allergies Allergy/AdvReac Type Severity Reaction Status Date / Time No Known Allergies Allergy Verified 01/17/19 09:46 Review of Systems - Review of Systems Review of systems:: pertinent systems reviewed and negative unless documented below - *Cardiovascular Denies chest pain, Denies shortness of breath - *Respiratory Denies cough - *Gastrointestinal Reports nausea, Denies loose stools, Denies vomiting - *Genitourinary Denies blood in urine - *Musculoskeletal Reports back pain, Denies joint pain - *Neurologic Reports dizziness, Denies confusion, Denies localized weakness, Denies seizure- like activity Exam Vital signs and Labs for Last 24 Hours: Temp Pulse Resp BP Pulse Ox 98.5 F 81 16 110/57 L 90 L 06/18/19 04:00 06/18/19 04:00 06/18/19 04:00 06/18/19 04:00 06/18/19 04:00 Laboratory Results - last 24 hr 06/17/19 07:25: WBC 5.4, RBC 3.96 L, Hgb 11.8 L, Hct 37.2 L, MCV 93.9, MCH 29.9, MCHC 31.8, RDW 14.6, Plt Count 283, MPV 7.6, Neut % (Auto) 53.4, Lymph % (Auto) 36.2, [place] % (Auto) 8.2, Eos % (Auto) 1.3, Baso % (Auto) 0.8, Neut # (Auto) 2.9, Lymph # (Auto) 2.0, [place] # (Auto) 0.4, Eos # (Auto) 0.1, Baso # (Auto) 0.1 06/17/19 07:25: Sodium 143, Potassium 3.9, Chloride 108 H, Carbon Dioxide 29, Anion Gap 9.9, BUN 11, Creatinine 1.06, Estimated Creat Clear 100, Estimated GFR 71, Est GFR ( Amer) 86, Glucose 97, Calcium 8.3 L, Magnesium 1.7, Troponin I 0.10 H, Triglycerides 133, Cholesterol 100 L, LDL Cholesterol 46, VLDL Cholesterol 27, HDL Cholesterol 27, Cholesterol/HDL Ratio 3.7 H 06/18/19 06:23: WBC 9.5 D, RBC 4.11 L, Hgb 12.0 L, Hct 37.8 L, MCV 92.1, MCH 29.2, MCHC 31.7 L, RDW 14.5, Plt Count 316, MPV 7.3 L, Neut % (Auto) 66.7, Lymph % (Auto) 24.8, [place] % (Auto) 6.1, Eos % (Auto) 1.9, Baso % (Auto) 0.6, Neut # (Auto) 6.4, Lymph # (Auto) 2.4, [place] # (Auto) 0.6, Eos # (Auto) 0.2, Baso # (Auto) 0.1 06/18/19 06:23: Sodium 143, Potassium 4.0, Chloride 106, Carbon Dioxide 30, Anion Gap 11.0, BUN 13, Creatinine 1.04, Estimated Creat Clear 103, Estimated GFR 73, Est GFR ( Amer) 88, Glucose 94, Calcium 8.5, Magnesium 1.6 I & O for Last 24 hours: Intake & Output 06/15/19 06/16/19 06/17/19 06/18/19 11:59 11:59 11:59 11:59 Intake Total 120 / 120 2847 / 2847 Output Total 1000 / 1000 Balance 120 / 120 1847 / 1847 Weight 212 lb 1 oz 214 lb 5 oz - *Routine HEENT Exam Head: Present: normocephalic Eye: Present: EOMI, PERRL ENT: Present: mucous membranes moist - *Routine Neck Exam Present: supple. Absent: JVD, carotid bruit - *Routine Respiratory Exam Present: wheezes. Absent: accessory muscle use, rales, rhonchi - *Routine Cardiovascular Exam Present: RRR. Absent: murmur, gallop, rubs - *Routine Abdominal Exam Present: soft. Absent: tenderness, distended, guarding - *Routine Extremities Exam Absent: edema, calf tenderness - *Routine Neurological Exam Present: alert, oriented X3, moving all extremities Assessment and Plan (1) Tobacco use disorder Current visit: Yes Status: Chronic Category: Medical Code(s): F17.200 - Nicotine dependence, unspecified, uncomplicated (2) NSTEMI (non-ST elevated myocardial infarction) Current visit: Yes Status: Acute Category: Medical Code(s): I21.4 - Non-ST elevation (NSTEMI) myocardial infarction (3) Chest pain Current visit: Yes Status: Resolved Qualifiers: Chest pain type: unspecified Qualified Code(s): R07.9 - Chest pain, unspecified Category: Medical Code(s): R07.9 - Chest pain, unspecified (4) COPD (chronic obstructive pulmonary disease) Current visit: No Status: Chronic Category: Medical Code(s): J44.9 - Chronic obstructive pulmonary disease, unspecified (5) CAD (coronary artery disease) Current visit: No Status: Chronic Qualifiers: Coronary Disease-Associated Artery/Lesion type: [place] artery [place] vs. transplanted heart: [place] heart Associated angina: without angina Qualified Code(s): I25.10 - Atherosclerotic heart disease of [place] coronary artery without angina pectoris Category: Medical Code(s): I25.10 - Atherosclerotic heart disease of [place] coronary artery without angina pectoris (6) HHD (hypertensive heart disease) Current visit: No Status: Chronic Qualifiers: Heart failure presence: without heart failure Qualified Code(s): I11.9 - Hypertensive heart disease without heart failure Category: Medical Code(s): I11.9 - Hypertensive heart disease without heart failure (7) HLD (hyperlipidemia) Current visit: No Status: Chronic Qualifiers: Hyperlipidemia type: unspecified Qualified Code(s): E78.5 - Hyperlipidemia, unspecified Category: Medical Code(s): E78.5 - Hyperlipidemia, unspecified - Assessment and plan all Dx Assessment and Plan for all problems:: 1. Atypical symptoms with elevated troponins. Possible type 2 NSTEMI with known branch vessel disease and acute on chronic respiratory problems (wheezing on exam). Agree with addition of beta sukhdev and long acting nitrate therapy. Will continue DAPT. He would not be able to walk on treadmill long enough to acheived target HR nor would he tolerate lexiscan infusion due to wheezing on exam (improved per Dr. Byrd). Will order echo to assess LVEF and if normal then agree with discharge home for early outpatient follow up. Pt is stable and anxious to go home. Dr. Ramirez is out of town today and would not be able to perform LHC today. He would prefer Dr. Ramirez perform LHC if needed. 2. HTN, controlled 3. HLD, on statin therapy with LDL 46 4. Hypothyroidism, on replacement 5. Tobacco use, pt is quitting 6. COPD with no acute pulmonary infiltrates noted on CXR
--- NOTE | 2019-06-18 10:27 | Discharge Summary ---
General - General Admission date:: 06/17/19 Discharge date: 06/18/19 HPI HPI: Pleasant 63-year-old gentleman with extensive history of tobacco abuse, hypertension, coronary artery disease, hyperlipidemia who presented to the ER yesterday via EMS due to onset of left arm pain and weakness in his legs. He states he was at home yesterday evening when he began to notice a warming sensation and weakness in his legs going from his feet and progressive up his thighs. It was around this time as well he started to feel tingling pain radiating down his left arm. He had his grabbed his home blood pressure cuff and found that his blood pressure was approximately 170-180/100. He felt very weak, difficulty walking, "was walking like those people that have a stroke". He denies any chest pain, shortness of breath, nausea, vomiting, headache, confusion. No facial droop or weakness. Has been taking his losartan 100 mg daily and amlodipine 5 mg daily in the morning without side effect. Of note was cathed by cardiology in April 2018 with placement of stent in his LAD and is on dual antiplatelet therapy, statin, ARB at this time. Initial labs concerning for slight elevation in troponin with vitals showing hypertension. EKG with no ST changes, T wave abnormalities, and normal sinus rhythm. Admitted for observation overnight with serial troponins. Of note he is not on a beta-sukhdev. Assessment today, patient is pain-free. Stable on telemetry with mild hypertension but no longer having symptoms of arm pain or warmth/tingling in his legs. Discussed his concerning findings/presentation with him. Patient has risk factors of previous coronary artery disease necessitating stenting, extensive smoking history, Cardiology consult placed, will have them see patient in the morning to discuss further advancement of medical management versus more invasive work-up. Hospital Course Hospital Course: Admitted to medicine for serial troponins and telemetry. Patient's troponin had slight elevation however had no changes on telemetry or EKG. Consulted cardiology who saw patient on day of discharge with following recommendations: 1. Atypical symptoms with elevated troponins. Possible type 2 NSTEMI with known branch vessel disease and acute on chronic respiratory problems (wheezing on exam). Agree with addition of beta sukhdev and long acting nitrate therapy. Will continue DAPT. He would not be able to walk on treadmill long enough to acheived target HR nor would he tolerate lexiscan infusion due to wheezing on exam. -Echo obtained: Conclusion 1. Mild biatrial abdomen, normal left ventricular size, mild concentric left ventricular hypertrophy, visually estimated ejection fraction 55% with no regional wall motion abnormality, grade 1 diastolic dysfunction seen without tissue Doppler evidence of raise left atrial pressure. 2. Mildly enlarged right ventricle with normal contractility. 3. Mild mitral and tricuspid regurgitation 4. No significant pericardial effusion noted. Cardiology recommended left heart cath given symptoms and elevated troponins, significant coronary artery disease risk factors, and previous heart cath with stents a little over a year ago. 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 As patient was hemodynamically stable with improvement in troponins, continue medical management at this time and plan for outpatient follow-up in the coming days with performance of coronary artery catheterization. Blood pressure improved with adjustments to medications. Recommended continuing statin for goal LDL less than 55 (currently 46) Additionally recommended close follow-up with PCP. Continue medications for hypothyroidism. Would benefit from smoking cessation. Medically stable for discharge home. Denies any further chest pain, shortness of breath, nausea, vomiting, diarrhea. Objective Vital signs: Temp Pulse Resp BP Pulse Ox 98.0 F 75 18 124/74 98 06/18/19 08:00 06/18/19 08:00 06/18/19 08:00 06/18/19 08:00 06/18/19 08:00 Narrative: - Constitutional no acute distress, overweight - *Routine HEENT Exam Head: Present: normocephalic Eye: Present: EOMI, PERRL ENT: Present: mucous membranes moist - *Routine Neck Exam Present: supple. Absent: lymphadenopathy - *Routine Respiratory Exam Present: wheezes, good air movement bilaterally. Absent: accessory muscle use, rhonchi, crackles - *Routine Cardiovascular Exam Present: RRR. Absent: murmur - *Routine Abdominal Exam Present: soft, normoactive bowel sounds. Absent: tenderness - *Routine Extremities Exam Absent: cyanosis, clubbing, edema - *Routine Skin Exam Present: warm. Absent: rash - *Routine Neurological Exam Present: alert, oriented X3 Results Labs on day of discharge: Labs from last 24 hours 06/18/19 06/18/19 06:23 06:23 WBC 9.5 D RBC 4.11 L Hgb 12.0 L Hct 37.8 L MCV 92.1 MCH 29.2 MCHC 31.7 L RDW 14.5 Plt Count 316 MPV 7.3 L Neut % (Auto) 66.7 Lymph % (Auto) 24.8 [place] % (Auto) 6.1 Eos % (Auto) 1.9 Baso % (Auto) 0.6 Neut # (Auto) 6.4 Lymph # (Auto) 2.4 [place] # (Auto) 0.6 Eos # (Auto) 0.2 Baso # (Auto) 0.1 Sodium 143 Potassium 4.0 Chloride 106 Carbon Dioxide 30 Anion Gap 11.0 BUN 13 Creatinine 1.04 Estimated Creat Clear 103 Estimated GFR 73 Est GFR ( Amer) 88 Glucose 94 Calcium 8.5 Magnesium 1.6 DS: Diagnosis - Discharge Diagnosis (1) Tobacco use disorder Status: Chronic (2) NSTEMI (non-ST elevated myocardial infarction) Status: Acute (3) Chest pain Status: Resolved (4) COPD (chronic obstructive pulmonary disease) Status: Chronic (5) CAD (coronary artery disease) Status: Chronic (6) HHD (hypertensive heart disease) Status: Chronic (7) HLD (hyperlipidemia) Status: Chronic Discharge Plan - Patient Discharge Instructions ACTIVITY: Continue current activity DIET: continue same diet Patient Instructions: DI for Chest Pain - Follow up Plan Follow up with: Anaid Groves APRN [Primary Care Provider] - 06/25/19 10:00 am (please come early to fill out new year paperwork) Richard Ramirez MD [Staff Physician] - 06/27/19 10:00 am Unknown provider or service follow up:: 06/18/19 10:24 patient's PCP with in a week Disposition: Home, Self-Intermediate Medications: Home Medications Medication Instructions Recorded Confirmed Type aspirin 81 mg tablet,delayed 81 mg PO DAILY 03/22/18 06/17/19 History release Pantoprazole Sodium [Protonix 40mg 40 mg PO DAILY 09/26/18 06/17/19 History tablet] atorvastatin 80 mg tablet 80 mg PO DAILY #30 tab 01/17/19 06/17/19 Rx clopidogrel 75 mg tablet 75 mg PO DAILY #30 tab 01/17/19 06/17/19 Rx levothyroxine 88 mcg tablet 125 mcg PO DAILY tab 01/17/19 06/17/19 History naproxen 500 mg tablet 500 mg PO DAILY tab 01/17/19 06/17/19 History losartan 100 mg tablet 100 mg PO DAILY #30 tab 02/06/19 06/17/19 Rx nitroglycerin 0.4 mg sublingual 0.4 mg SUBLINGUAL Q5-15M PRN #25 05/21/19 06/17/19 Rx tablet tab buPROPion HCL [Wellbutrin SR 150mg 150 mg PO BID 06/17/19 06/17/19 History Tablet] Amlodipine Besylate [Norvasc 10mg 10 mg PO DAILY 30 Days #30 tab 06/18/19 Rx tablet] Isosorbide Mononitrate [Imdur 30mg 30 mg PO DAILY 30 Days #30 06/18/19 Rx ER tablet] tab.er.24h carvediloL [Coreg 3.125mg Tablet] 3.125 mg PO BID 30 Days #60 tab 06/18/19 Rx Prescriptions/Medication Reconciliation: New Isosorbide Mononitrate [Imdur 30mg ER tablet] 30 mg PO DAILY 30 Days #30 tab.er.24h carvediloL [Coreg 3.125mg Tablet] 3.125 mg PO BID 30 Days #60 tab Amlodipine Besylate [Norvasc 10mg tablet] 10 mg PO DAILY 30 Days #30 tab Continued naproxen 500 mg tablet 500 mg PO DAILY tab atorvastatin 80 mg tablet 80 mg PO DAILY #30 tab clopidogrel 75 mg tablet 75 mg PO DAILY #30 tab aspirin 81 mg tablet,delayed release 81 mg PO DAILY levothyroxine 88 mcg tablet 125 mcg PO DAILY tab losartan 100 mg tablet 100 mg PO DAILY #30 tab nitroglycerin 0.4 mg sublingual tablet 0.4 mg SUBLINGUAL Q5-15M PRN #25 tab PRN Reason: chest pain buPROPion HCL [Wellbutrin SR 150mg Tablet] 150 mg PO BID Pantoprazole Sodium [Protonix 40mg tablet] 40 mg PO DAILY Discontinued amlodipine 5 mg tablet 5 mg PO DAILY #30 tab - Problem Reconciliation Problems Reviewed?: Yes
--- NOTE | 2019-06-18 18:17 | Electrocardiograph Report ---
APPROVED REPORT Exam: Resting ECG HR:90 bpm ECG Measurements Heart Rate 90 AXES SD 130 P 72 QRSd 82 QRS 71 QT 370 T72 QTc 452 <Conclusion> Normal sinus rhythm Normal ECG Electronically signed by : Eldon Alcaraz, 06/18/2019 18:16:45
--- NOTE | 2019-06-18 18:45 | Cardiology Report ---
APPROVED REPORT EXAM: Comprehensive 2D, Doppler, and color-flow Echocardiogram Health Information Specialist: Gabby Truong RT(R) Ht: 6 ft 0 in Wt: 214lbs BSA: 2.19 BP: 110/57 mmHg Indications: cp, COPD, CAD, HHD, smoker, HTN, hyperlipidemia, stent, hyperlipidemia, 2D Dimensions LVOT 2.08 cm (M/F) 1.5-2.5 M-Mode Dimensions RVDd 3.08 cm (0.9-2.6)LVDd 3.42 cm (3.5-5.7) LVDs 2.43 cm (3.5-5.7)IVSd 0.99 cm (0.6-1.1) PWd 0.91 cm (0.6-1.1)EF (Teich) 56.80% FS 28.90% EDV (Teich) 48.10 mL ESV (Teich) 20.80 mL LV Diastology E/A Ratio 0.84 Mitral Valve MV A Velocity 77.00 (40-130 cm/s) Left Ventricle Left atrium is mildly enlarged, left ventricle is normal size, mild concentric left ventricular hypertrophy, visually estimated ejection fraction 55% with no regional wall motion abnormality, grade 1 diastolic dysfunction seen without tissue Doppler evidence of raise left atrial pressure. Right Ventricle Right atrium and right ventricle mildly enlarged with normal contractility. Aortic Valve Aortic valve is minimally thickened and fibrosed, there is no aortic stenosis or aortic insufficiency. Mitral Valve Mitral valve is grossly normal, there is mild mitral regurgitation. Tricuspid Valve Tricuspid valve is grossly normal, there is mild tricuspid regurgitation. Tricuspid regurgitation jet velocity is inadequate for calculation of the right ventricular systolic pressure. Pulmonic Valve Pulmonic valve is poorly visualized. Great Vessels Aortic root is normal size. Pericardium No significant pericardial effusion noted. Conclusion 1. Mild biatrial abdomen, normal left ventricular size, mild concentric left ventricular hypertrophy, visually estimated ejection fraction 55% with no regional wall motion abnormality, grade 1 diastolic dysfunction seen without tissue Doppler evidence of raise left atrial pressure. 2. Mildly enlarged right ventricle with normal contractility. 3. Mild mitral and tricuspid regurgitation 4. No significant pericardial effusion noted. Electronically signed by : Fish Vargas, 06/18/2019 18:45:17
== END 2019-06-18 11:30 | disposition home or self-care (01) ==
LOC: ER 23:43 → 2ND 23:43
PROVIDERS: ADMIT Internal Medicine Adolescent Medicine; ATTEND Internal Medicine Adolescent Medicine
CPT/HCPCS: 36415; 71020; 71046; 80048; 80053; 80061; 83735; 83880; 84443; 84484; 85025; 90732; 93005; 93306; 96365; 99284; G0378

== ENCOUNTER 2020-01-26 18:21 | Emergency (ER) | payer OTHER, SELFPAY ==
[2020-01-26 18:22] VITALS: BP 157/75; PULSE 92; RESP 16; TEMP 37.2; O2SAT 98; BMI 34.0
[2020-01-26 18:41] LABS: Color,Urine Yellow (Yellow)
[2020-01-26 18:42] VITALS: BP 157/75; PULSE 92; RESP 16; TEMP 37.2; O2SAT 98; BMI 34.0
[2020-01-26 18:42] LABS: Apearance,Urine Clear (Clear); Blood, Urine Trace (Negative); Glucose,Urine (UA) Negative (Negative); Ketones,Urine TRACE (Negative); PH,Urine 5.5 (5.0-8.5); Protein,Urine Trace (Negative); Specific Gravity, Urine >= 1.030 (1.005-1.030)
[2020-01-26 18:43] LABS: Bilirubin,Urine 1+ (Negative); UTC Leukocyte Esterase,Urine Negative (Negative); UTC Nitrate,Urine Negative (Negative); Urobilinogen,Urine 0.2 EU/dl (0.2)
--- NOTE | 2020-01-26 18:53 | PC.NURSE ---
PATIENT SENT TO ER PER KARRIE JACOBS FOR FURTHER EVALUATION. REPORT GIVEN TO Casimiro SEXTON RN
[2020-01-26 18:59] VITALS: BP 133/73; PULSE 90; RESP 17; TEMP 36.7; O2SAT 96; BMI 34.7
--- NOTE | 2020-01-26 19:02 | HMH.EDGENADL ---
ED Disposition Condition on Discharge: Fair - Critical Care Critical Care Time: No <Bj Hughes - Last Filed: 01/26/20 20:13> <Inocencio Noble - Last Filed: 01/26/20 20:58> Clinical Impression: AAA (abdominal aortic aneurysm) without rupture Abdominal pain Qualifiers: Abdominal location: left lower quadrant Qualified Code(s): R10.32 - Left lower quadrant pain Disposition: Home, Self-Care Instructions: DI for Acute Abdomen Additional Instructions: please call pcp tuesday for follow up and consult with vascular surg - Referrals: Anaid Groves APRN [Primary Care Provider] - Attestation: On 01/26/20, the high probability of a clinically significant, sudden or life threatening deterioration of the following system(s) required my full and direct attention, intervention and personal management. The time I documented below is in addition to time spent performing reported procedures but includes the following listed in this critical care notation. Medical Decision Making - Medical Records Medical records reviewed: Yes: I reviewed the patient's medical records. MR Comment: 64-year-old male presents emergency department with 1 to 2 months of left lower quadrant and flank pain. He arrives the ED hemodynamically stable, with reassuring vital signs, and looks well on exam. Will get labs and imaging and reassess. - Deepak Inquiry Pt receiving controlled substance: No - Lab Data Result diagrams: 01/26/20 19:08 01/26/20 19:08 <Bj Hughes - Last Filed: 01/26/20 20:13> - Lab Data Result diagrams: 01/26/20 19:08 01/26/20 19:08 - CT Data CT Scan: Abdomen, Pelvis Time Received: 20:[address] Reviewed: Yes: I have viewed the radiologist's interpretation Preliminary Findings: Abnormal (3 cm aaa) <Inocencio Noble - Last Filed: 01/26/20 20:58> Vital Signs: 01/26/20 18:22 01/26/20 18:42 01/26/20 18:59 Temperature 98.9 F 98.9 F 98.1 F Temperature Source Oral Oral Oral Pulse Rate [Left Radial] 92 H 92 H 90 Respiratory Rate 16 16 17 Blood Pressure [Right Arm] 157/75 H 157/75 H 133/73 Blood Pressure Mean [Right Arm] 102 102 93 Blood Pressure Source [Right Arm] Automatic Cuff Automatic Cuff Blood Pressure Position [Right Arm] Sitting Sitting Sitting 02 Sat by Pulse Oximetry 98 98 96 Oxygen Delivery Method Room Air Room Air Room Air 01/26/20 20:18 01/26/20 20:36 Temperature Temperature Source Pulse Rate [Left Radial] 81 82 Respiratory Rate 16 18 Blood Pressure [Right Arm] 141/66 H 131/59 L Blood Pressure Mean [Right Arm] 91 83 Blood Pressure Source [Right Arm] Blood Pressure Position [Right Arm] 02 Sat by Pulse Oximetry 97 97 Oxygen Delivery Method Room Air Room Air - Lab Data Lab Results 01/26/20 18:41: Urine Color Yellow, Urine Appearance Clear, Urine pH 5.5, Ur Specific Emma >= 1.030, Urine Protein Trace, Urine Glucose (UA) Negative, Urine Ketones Trace, Urine Blood Trace, Urine Nitrate Negative, Urine Bilirubin 1+ A, Urine Urobilinogen 0.2, Ur Leukocyte Esterase Negative 01/26/20 19:08: WBC 12.7 H, RBC 3.88 L, Hgb 12.1 L, Hct 36.2 L, MCV 93.2, MCH 31.2, MCHC 33.5, RDW 14.3, Plt Count 332, MPV 7.3 L, Neut % (Auto) 64.7, Lymph % (Auto) 26.0, Ida % (Auto) 5.0, Eos % (Auto) 3.7, Baso % (Auto) 0.5, Neut # (Auto) 8.2 H, Lymph # (Auto) 3.3, Ida # (Auto) 0.6, Eos # (Auto) 0.5 H, Baso # (Auto) 0.1 01/26/20 19:08: Sodium 139, Potassium 4.1, Chloride 102, Carbon Dioxide 32 H, Anion Gap 9.1, BUN 17, Creatinine 1.20, Estimated Creat Clear 96, Estimated GFR 61, Est GFR ( Amer) 74, Glucose 105 H, Calcium 9.4, Total Bilirubin 0.3, Direct Bilirubin 0.1, Conjugated Bilirubin 0.0, Indirect Bilirubin 0.2, Unconjugated Bilirubin 0.2, AST 24, ALT 18, Alkaline Phosphatase 69, Total Protein 8.0, Albumin 4.1, Amylase 54 01/26/20 19:08: Lipase 127 Orders (Tests/Meds): ED MEDICATIONS Discontinued Medications Generic Name Dose Route Start Last Admin Trade Name Freq PRN Reason Stop Do
--- NOTE | 2020-01-26 19:08 | CT_ITS ---
PROCEDURE: CT ABDOMEN PELVIS W CON CLINICAL INDICATION: left side pain with movement Left lower quadrant pain COMPARISON: No exams were available for comparison TECHNIQUE: IV Contrast: 75ML OPTIRAY 350 Oral Contrast None Axial images obtained with sagittal and coronal reformats. All CT scans at the facility use one or more dose reduction, viz: automated exposure control, ma/kV adjustment per patient size (including targeted exams where dose is matched to indication, i.e. head), or iterative reconstruction technique. FINDINGS: Lung bases are clear. Coronary artery calcifications are present The liver, spleen, adrenal glands, and kidneys have an unremarkable appearance. There is a small calcification in the head of the pancreas. The pancreas is otherwise unremarkable with no acute findings. No intestinal obstruction or free air. Unremarkable appendix. No pelvic mass or abnormal fluid collection. There is mild fusiform dilatation of the infrarenal abdominal aorta measuring up to 3 cm in diameter with mild mural thickening and minimal haziness of the Hannah aortic fat raising the suspicion of mycotic aneurysm or aortitis. No acute bony findings. IMPRESSION: 3 cm fusiform infrarenal abdominal aortic aneurysm with mild mural thickening and minimal haziness of the periaortic fat. Differential diagnosis would include mycotic aneurysm, aortitis, or atherosclerotic disease. Follow-up suggested. Dictated by: Bo Laureano MD 01/27/2020 05:26 Bo Laureano MD in [place] 01/27/2020 05:26
[2020-01-26 19:16] LABS: Basophils # 0.1 K/mm3 (0-0.2); Basophils % 0.5 % (0.1-2.0); Eosinophils # 0.5 K/mm3 (0.0-0.4); Eosinophils % 3.7 % (0.1-12.0); Hematocrit 36.2 % (42.0-52.0); Hemoglobin 12.1 g/dL (14.1-18.0); Lymphocytes # 3.3 K/mm3 (0.7-4.5); Mean Corpuscular HGB Conc 33.5 g/dL (31.8-35.4); Mean Corpuscular Hemoglobin 31.2 pg (27.0-31.2); Mean Corpuscular Volume 93.2 fl (80-94); Mean Platelet Volume 7.3 fl (7.4-10.4); Monocytes # 0.6 K/mm3 (0.1-1.0); Neutrophils # 8.2 K/mm3 (1.8-7.8); Neutrophils % 64.7 % (37.0-80.0); Platelet Count 332 K/mm3 (142-424); Red Blood Count 3.88 M/mm3 (4.60-6.20); Red Cell Distribution Width 14.3 % (11.5-17.5); White Blood Count 12.7 K/mm3 (4.8-10.8)
[2020-01-26 19:28] LABS: Alanine Aminotransferase 18 U/L (12-78); Albumin Level 4.1 g/dl (3.5-5.0); Alkaline Phosphatase 69 U/L (38-126); Amylase 54 U/L (30-110); Anion Gap 9.1 mEq/L (5-15); Aspartate Amino Transferase 24 U/L (17-59); Bilirubin,Direct 0.1 mg/dl (0.0-0.4); Bilirubin,Indirect 0.2 mg/dL (0.0-0.9); Bilirubin,Total 0.3 mg/dl (0.2-1.3); Bilirubin,Unconjugated 0.2 mg/dL (0.0-1.1); Blood Urea Nitrogen 17 mg/dl (9-20); Calcium 9.4 mg/dl (8.4-10.2); Carbon Dioxide 32 mmol/L (22.0-30.0); Chloride 102 mmol/L (98-107); Creatinine Clearance Estimated 96 mL/min (50-200); Estimated Glomerular Filt Rate 61 ml/min (>60); GFR (African American) 74 ML/MIN (>60); Glucose 105 mg/dl (74-100); Potassium 4.1 mmoL/L (3.5-5.1); Sodium 139 mmol/L (136-145)
[2020-01-26 19:29] LABS: Lipase 127 U/L (23-300)
[2020-01-26 20:18] VITALS: BP 141/66; PULSE 81; RESP 16; O2SAT 97
[2020-01-26 20:36] VITALS: BP 131/59; PULSE 82; RESP 18; O2SAT 97
[2020-01-26 21:12] VITALS: BP 132/64; PULSE 85; RESP 15; TEMP 36.7; O2SAT 98
== END 2020-01-26 21:16 | disposition home or self-care (01) ==
LOC: ER 18:32 → UTC 18:33 → ER 18:52
PROVIDERS: Emergency Medicine; Nurse Practitioner Family; Emergency Provider Emergency Medicine; PCP Nurse Practitioner Family
DX: R10.32 Left lower quadrant pain (principal); I71.4 Abdominal aortic aneurysm, without rupture; I25.10 Atherosclerotic heart disease of native coronary artery without angina pectoris; I10 Essential (primary) hypertension; E78.5 Hyperlipidemia, unspecified; E03.9 Hypothyroidism, unspecified; Z87.891 Personal history of nicotine dependence; F12.10 Cannabis abuse, uncomplicated; F19.10 Other psychoactive substance abuse, uncomplicated; Z79.899 Other long term (current) drug therapy
CPT/HCPCS: 74177; 80048; 80076; 81003; 82150; 83690; 85025; 99284; Q9967

== ENCOUNTER → 2020-08-09 09:45 | Outpatient (CLI) | payer OTHER, SELFPAY ==
[2020-08-09 10:55] LABS: Coronavirus 19 IgG Antibody Negative (Negative); Coronavirus 19 IgM Antibody Negative (Negative)
== END ==
PROVIDERS: Visit Provider Internal Medicine Gastroenterology
DX: Z01.812 Encounter for preprocedural laboratory examination (principal); Z20.822 Contact with and (suspected) exposure to COVID-19; Z12.11 Encounter for screening for malignant neoplasm of colon
CPT/HCPCS: 36415; 86328

== ENCOUNTER 2020-08-11 11:08 | Day surgery (SDC) | payer OTHER, SELFPAY ==
[2020-08-06 13:39] VITALS: BMI 33.2
[2020-08-11 11:32] VITALS: BP 160/77; PULSE 83; RESP 20; TEMP 36.3; O2SAT 96
[2020-08-11 12:26] VITALS: O2SAT 97
--- NOTE | 2020-08-11 13:00 | HMH.PROC ---
[facility] Procedure Note Procedure Note:: Colonoscopy Procedure Report: Colonoscopy with cold snare polypectomy, snare cautery and Endo Clip placement Endoscopist: Monty Amaya II, MD Referring physician: GUS Washburn/Richard Ramirez MD/GUS Sandhu Date of Procedure: August 11, 2020 Equipment: Olympus 190 variable stiffness pediatric colonoscope Sedation: MAC sedation Indication: Mr. Sandoval is a 65-year-old gentleman who is here for diagnostic colonoscopy. He has had a knot or prolapse of the rectum. This occurs sometimes after a bowel movement and he has to manually push back. The patient has had some bowel irregularity and altered bowel habits with constipation. He has not been compliant with the fiber bowel regimen (combined MiraLAX plus Metamucil). He did have hemorrhoid surgery in the early 80s. He reports regular bowel function presently. He reports no abdominal pain, weight loss, rectal pain or family history of colon cancer. This is his first colonoscopy. Procedure: Prior to the procedure, a history and physical exam was performed, and patient's medications and allergies were reviewed. The risks, benefits and alternatives of the sedation and procedure were discussed with the patient. All questions were answered and informed consent was obtained. The patient was brought to the procedure room. Patient identification and proposed procedure were verified by the physician and the nurse. The patient was placed in a left lateral decubitus position and the scope was passed under direct vision. Throughout the procedure, the patient's blood pressure, pulse, and oxygen saturations were monitored continuously. The colonoscopy was accomplished without difficulty. The patient tolerated the procedure well. Findings: On digital rectal examination there was normal rectal tone. There were no external hemorrhoids. The colonoscope was introduced through the anal canal to the rectum and advanced to the cecum. The ileocecal valve and appendiceal orifice were identified. The scope was advanced a short distance into the ileum which appeared grossly normal. The scope was then withdrawn into the colon. There were multiple colon polyps. 10 polyps were identified (cecum x4 (4, 6, 7 and 9 mm), ascending x3 (4, 5 and 9 mm), transverse x1 (7 mm), rectosigmoid x1 (5 mm) and rectum x1 (very large pedunculated 35mm polyp)). All of the polyps were removed via cold snare polypectomy except a very large rectal polyp that was removed via snare cautery. The polypectomy site had active heme/venous bleeding and this was closed with a single Endo Clip. (there were scattered diverticuli throughout the descending and sigmoid colon (LEFT colon). The rectum itself was normal. Upon retroflexion within the rectum there were grade 2 internal hemorrhoids. The preparation was fair throughout with Clayton Preparation Score of 7 out of 9. The cecal time was 21 minutes. Impression: 1. Large pedunculated rectal polyp (35 mm) 2. 9 additional small and medium sized colonic polyps 3. Left-sided diverticulosis 4. Grade 2 internal hemorrhoids Plan: The patient does have multiple adenomatous polyps. The rectal polyp will be an advanced adenoma. I will discuss the findings with the patient and family. I would recommend repeat surveillance colonoscopy again in 1 year. I would encourage a fiber bowel regimen (combined MiraLAX plus Metamucil by mouth daily) on a long-term daily maintenance basis.
[2020-08-11 13:03] VITALS: BP 116/66; PULSE 83; RESP 12; TEMP 36.3; O2SAT 96
--- NOTE | 2020-08-11 13:12 | HMH.ANESCL ---
[facility] Anesthesia Checklist - Structural Data Admitted From: Home Planned Operative Procedure/s: Colonoscopy Consent for Planned Operative Procedure(s) Verified: Yes Verified Documents: Surgical Consent - Additional verifications Anesthesia Reactions: No - Anesthesia Plan Anesthesia Risk discussed: Yes Anesthesia Plan: Verified ASA Class: III Anesthesia Type: MAC [facility] History Medical History: Reports:: Coronary Artery Disease, Hyperlipidemia, Hypertension, Lung Disease Denies:: Cancer, Diabetes Mellitus Type 1, Diabetes Mellitus Type 2, Internal Pacemaker, MRSA, Seizures *Have you ever received a pneumonia vaccine?: Yes *Have you received a flu vaccine this season?: Yes Other Medical History: Reports: Hypothyroidism Anesthesia experience/problems:: None Laterality Cases: Bilateral: Tonsillectomy Other Surgeries: Yes: Cardiac Catheterization, Coronary Stent, Other. No: Pacemaker Amputation: No Fractures: No - *Social History Last grade of school completed: GED Smoking Status: Current some day smoker Tobacco Type: cigarettes # Packs/Day (cigarettes): 1 #Yrs smoked (if former smoker): 48 Alcohol Intake: never Substance Use Type: former substance user, methamphetamine, crack/cocaine, marijuana *Occupational Status:: employed Housing: house Household Members: significant other *Travel in the last 8 weeks: None Family Hx:: Coronary Artery Disease
[2020-08-11 13:13] VITALS: BP 135/87; PULSE 85; RESP 16; O2SAT 98
[2020-08-11 13:23] VITALS: BP 144/103; PULSE 85; RESP 16; O2SAT 99
[2020-08-11 13:33] VITALS: BP 151/92; PULSE 80; RESP 16; TEMP 36.3; O2SAT 98
== END 2020-08-11 13:37 | disposition home or self-care (01) ==
LOC: OUTP 11:09
PROVIDERS: PCP Nurse Practitioner Family; Visit Provider Internal Medicine Gastroenterology
PROC: 0DJD8ZZ Inspection of Lower Intestinal Tract, Via Natural or Artificial Opening Endoscopic (ICD-10-PCS; CPT 45378; principal; 2020-08-11 13:00)
DX: K62.1 Rectal polyp (principal); K63.5 Polyp of colon; K57.30 Diverticulosis of large intestine without perforation or abscess without bleeding; K64.1 Second degree hemorrhoids; Z87.19 Personal history of other diseases of the digestive system; I25.10 Atherosclerotic heart disease of native coronary artery without angina pectoris; E78.5 Hyperlipidemia, unspecified; I10 Essential (primary) hypertension; J84.9 Interstitial pulmonary disease, unspecified; E03.9 Hypothyroidism, unspecified; Z90.89 Acquired absence of other organs; Z72.0 Tobacco use
CPT/HCPCS: 45385

== ENCOUNTER → 2021-03-10 11:26 | Outpatient (CLI) | payer OTHER, SELFPAY ==
--- NOTE | 2021-03-10 | CA_ITS ---
APPROVED REPORT Exam: Pharmacologic Technologist: Katherine Esquivel Ht: 5 ft 9 in Wt: 234 lbs BSA: 2.21 m2 HR: 83 bpm BP: 163/88 mmHg Indications: CAD Medical History Medications: Amlodipine,,,,, Levothyroxine,,,,, Isosorbide,,,,, Aspirin,,,,, Losartan,,,,, Pantoprazole,,,,, Atorvastatin,,,,, Carvedilol,,,,, Albuterol,,,,, CloPIdogrel,,,,, FeNOfibrate,,,,, BuPROPION,,,,, Stress Test Details Test: LEXISCAN HR Resting HR: 85 bpm Max Heart Rate (APMHR): 157.880225 bpm Max HR Achieved: 95 bpm Target HR (85% APMHR): 133.405768 bpm % of APMHR: 60.51 Recovery HR: 88 bpm BP Resting BP: 163.0/88.0 mmHg Max BP: 163.0/88.0 mmHg Recovery BP: 159.0/81.0 mmHg ECG Resting ECG: Sinus rhythm Clinical Exercise duration: 03:59 min Highest Stage Achieved: Exercise capacity: 1.0 METs Stress ECG Conclusion Lexiscan infusion portion completed. Patient complained of shortness of breath during peak infusion. Symptoms: Shortness of breath during peak infusion, resolved in recovery. No chest pain. Arrhythmias/Ectopy: No ectopy. ST-T Changes: Less than 1.[address] depression. Conclusion: Images to follow. Electronically signed by : Fish Vargas MD 03/10/2021 20:23:44
--- NOTE | 2021-03-10 11:31 | NM_ITS ---
APPROVED REPORT Exam: Nuclear Stress Test Indication: Chest pain, SOB, CAD, HTN, High cholesterol, Former tobacco use, Family history Patient Location: Outpatient Stress Tech: Katherinesarah Esquivel [place] Tech:Pattie Pérez, ARRT, RT (R)(N) Ht: 5 ft 9 in Wt: 238 lbs HR: 83 bpm BP: 163/88 mmHg BSA: 2.22 m2 BMI: 35.1 History: Chest pain, SOB, CAD, HTN, High cholesterol, Former tobacco use, Family history Procedure: Patient received a 0.4 mg of intravenous Lexiscan, resting heart rate 83 bpm, resting blood pressure 163/88 mmHg, with Lexiscan maximum heart rate achived was 94 bpm which is % of the maximum predicted heart rate and blood pressure was 125/75 mmHg. With Lexiscan, patient denied any complaint of chest pain. Cardiac Stress and Resting SPECT Images: Cardiac Stress and Resting SPECT images were obtained using technetium 99m Myoview 32.3 mCi stress and 10.46 mCi at rest. EF is normal at 55% with no wall motion abnormalities No fixed or reversible defects Conclusion: EF is normal at 55% with no wall motion abnormalities No fixed or reversible defects Electronically signed by : Bo Laureano MD 03/10/2021 14:34:27
--- NOTE | 2021-03-10 13:12 | HMH.ITSHM ---
Current Home Medications as stated by this patient Salbador Sandoval or commercial representative. []PANTOPRAZOLE NITRO LOSARTAN ISOSORBIDE LEVOTHYROXINE HYDROXYZINE FENOFIBRATE CLOPIDOGREL CARVEDILOL BUPROPION ATORVASTATIN ASA AMLODIPINE ALBUTEROL
== END ==
PROVIDERS: PCP Nurse Practitioner Family; Visit Provider Nurse Practitioner Family
DX: R06.09 Other forms of dyspnea (principal); I25.10 Atherosclerotic heart disease of native coronary artery without angina pectoris; I11.9 Hypertensive heart disease without heart failure; I71.4 Abdominal aortic aneurysm, without rupture; E78.2 Mixed hyperlipidemia; F17.200 Nicotine dependence, unspecified, uncomplicated
CPT/HCPCS: 78452; 93017; A9502; J2785

== ENCOUNTER → 2021-08-11 10:41 | Outpatient (CLI) | payer OTHER, SELFPAY ==
--- NOTE | 2021-08-11 11:05 | XR_ITS ---
FINAL REPORT TECHNIQUE: Chest PA & Lateral CLINICAL HISTORY: dyspnea COMPARISON: June 17, 2019 FINDINGS: 2 views of the chest were performed. The heart size is normal. The mediastinum is within normal limits. There is no acute cardiopulmonary process. There are mild chronic changes in the lung bases. There are no pleural effusions. There is no pneumothorax. The bony thorax appears intact. IMPRESSION: No acute cardiopulmonary process. Reviewed, Interpreted and Dictated by Binh Rea MD Transcribed by Rubi Decker Authenticated by Binh Rea MD on 08/11/2021 02:04:22 PM [facility]
[2021-08-11 11:40] LABS: Blood Urea Nitrogen 22 mg/dl (9-20); Estimated Glomerular Filt Rate 56 ml/min (>60); GFR (African American) 67 ML/MIN (>60)
== END ==
PROVIDERS: PCP Nurse Practitioner Family; Visit Provider Internal Medicine
DX: R06.09 Other forms of dyspnea (principal); I25.10 Atherosclerotic heart disease of native coronary artery without angina pectoris; I11.9 Hypertensive heart disease without heart failure; I21.4 Non-ST elevation (NSTEMI) myocardial infarction; I71.4 Abdominal aortic aneurysm, without rupture; E78.2 Mixed hyperlipidemia; J44.9 Chronic obstructive pulmonary disease, unspecified; K21.9 Gastro-esophageal reflux disease without esophagitis; R49.9 Unspecified voice and resonance disorder; Z78.9 Other specified health status
CPT/HCPCS: 36415; 71046; 82565; 84520

== ENCOUNTER → 2021-09-25 08:33 | Outpatient (CLI) | payer OTHER, SELFPAY ==
--- NOTE | 2021-09-25 08:47 | CT_ITS ---
FINAL REPORT CLINICAL HISTORY: change in voice, dyspnea FINDINGS: The thyroid gland is enlarged. There is no axillary lymphadenopathy. There is no hilar lymphadenopathy. There are several small superior mediastinal lymph nodes which do not meet criteria for lymphadenopathy. There is a 1.1 cm right lower lobe pulmonary nodule. On the noncontrast images, there is increased density along the margin of the proximal aspect of the aortic arch compared to the lumen. This extends superiorly along the anterior margins of the great vessels. No discrete dissection flap is identified on postcontrast images but an intramural hematoma is a consideration. Remainder of the thoracic aorta is normal. The heart size is normal. There are changes of emphysema. There is granulomatous disease. There is no pericardial or pleural effusion. Limited images of the upper abdomen demonstrate a fatty infiltrated liver. There are 2 hypervascular abnormalities in the liver which are nonspecific and could represent flash filling hemangiomas. Small solid lesions are not excluded. The remainder of the upper abdomen is without acute abnormality. IMPRESSION: 1. Possible intramural hematoma involving the proximal aortic arch. 2. Right lower lobe pulmonary nodule. Recommend three-month follow-up chest CT. 3. Small hypervascular abnormalities in the liver of uncertain etiology, consider MRI liver protocol. Results involving a possible intramural hematoma were reported to Marika in Dr. Ramirez's office at the time of interpretation. Reviewed, Interpreted and Dictated by Brisa Rodrigues MD Transcribed by Rubi Decker Authenticated by Brisa Rodrigues MD on 09/25/2021 01:44:[address] [facility]
[2021-09-25 09:07] LABS: Blood Urea Nitrogen 19 mg/dl (9-20); Estimated Glomerular Filt Rate 61 ml/min (>60); GFR (African American) 74 ML/MIN (>60)
== END ==
PROVIDERS: PCP Nurse Practitioner Family; Visit Provider Internal Medicine
DX: R06.09 Other forms of dyspnea (principal); I25.10 Atherosclerotic heart disease of native coronary artery without angina pectoris; I11.9 Hypertensive heart disease without heart failure; I21.4 Non-ST elevation (NSTEMI) myocardial infarction; E78.2 Mixed hyperlipidemia; I71.4 Abdominal aortic aneurysm, without rupture; J44.9 Chronic obstructive pulmonary disease, unspecified; K21.9 Gastro-esophageal reflux disease without esophagitis; R49.9 Unspecified voice and resonance disorder; Z78.9 Other specified health status
CPT/HCPCS: 36415; 71270; 82565; 84520; Q9967

== ENCOUNTER → 2022-01-14 11:01 | Outpatient (CLI) | payer OTHER, SELFPAY | PROVIDERS: Visit Provider Nurse Practitioner Family | DX: G47.33 Obstructive sleep apnea (adult) (pediatric) (principal); G47.34 Idiopathic sleep related nonobstructive alveolar hypoventilation; R06.2 Wheezing; Z87.891 Personal history of nicotine dependence; Z99.89 Dependence on other enabling machines and devices | CPT/HCPCS: 94762 ==

== ENCOUNTER → 2022-01-18 06:51 | Outpatient (CLI) | payer OTHER, SELFPAY ==
[2022-01-18 20:03] LABS: Alanine Aminotransferase 30 U/L (12-78); Albumin Level 3.9 g/dl (3.5-5.0); Alkaline Phosphatase 74 U/L (38-126); Anion Gap 17.6 mEq/L (5-15); Aspartate Amino Transferase 37 U/L (17-59); Bilirubin,Total 0.3 mg/dl (0.2-1.3); Blood Urea Nitrogen 17 mg/dl (9-20); Calcium 9.1 mg/dl (8.4-10.2); Carbon Dioxide 30 mmol/L (22.0-30.0); Chloride 96 mmol/L (98-107); Chol/HDL Ratio 5.6 (1-3.5); Cholesterol 179 mg/dl (140-200); Estimated Glomerular Filt Rate 56 ml/min (>60); GFR (African American) 67 ML/MIN (>60); Glucose 88 mg/dl (74-100); HDL Cholesterol 32 mg/dl (40-60); Potassium 4.6 mmoL/L (3.5-5.1); Sodium 139 mmol/L (136-145); Total Protein,Serum 7.9 g/dl (6.3-8.2); Triglycerides 180 mg/dl (30-150); VLDL Cholesterol 36 mg/dL (0-40)
[2022-01-18 20:08] LABS: Basophils # 0.2 K/mm3 (0-0.2); Basophils % 1.6 % (0.1-2.0); Eosinophils # 0.4 K/mm3 (0.0-0.4); Eosinophils % 3.3 % (0.1-12.0); Hematocrit 40.1 % (42.0-52.0); Lymphocytes # 2.3 K/mm3 (0.7-4.5); Lymphocytes % 17.6 % (10-50); Mean Corpuscular HGB Conc 32.5 g/dL (31.8-35.4); Mean Corpuscular Hemoglobin 30.6 pg (27.0-31.2); Mean Corpuscular Volume 94.1 fl (80-94); Mean Platelet Volume 8.6 fl (7.4-10.4); Monocytes # 0.7 K/mm3 (0.1-1.0); Monocytes % 5.2 % (1.7-9.3); Neutrophils # 9.4 K/mm3 (1.8-7.8); Neutrophils % 72.2 % (37.0-80.0); Platelet Count 414 K/mm3 (142-424); Red Blood Count 4.26 M/mm3 (4.60-6.20); Red Cell Distribution Width 14.6 % (11.5-17.5)
[2022-01-18 21:56] LABS: Hemoglobin A1C 5.8 % (4.0-6.0)
== END ==
PROVIDERS: PCP Family Medicine; Visit Provider Family Medicine
DX: E03.9 Hypothyroidism, unspecified (principal); E78.5 Hyperlipidemia, unspecified; J44.9 Chronic obstructive pulmonary disease, unspecified; G47.33 Obstructive sleep apnea (adult) (pediatric); Z87.891 Personal history of nicotine dependence; Z99.89 Dependence on other enabling machines and devices; Z79.899 Other long term (current) drug therapy
CPT/HCPCS: 80053; 80061; 83036; 84443; 85025

== ENCOUNTER → 2022-11-23 23:40 | Outpatient (CLI) | payer OTHER, SELFPAY ==
[2022-11-23 17:15] LABS: Basophils # 0.1 K/mm3 (0-0.2); Basophils % 0.4 % (0.1-2.0); Eosinophils # 0.2 K/mm3 (0.0-0.4); Eosinophils % 1.8 % (0.1-12.0); Hematocrit 37.3 % (42.0-52.0); Hemoglobin 11.7 g/dL (14.1-18.0); Lymphocytes # 1.9 K/mm3 (0.7-4.5); Lymphocytes % 15.8 % (10-50); Mean Corpuscular HGB Conc 31.3 g/dL (31.8-35.4); Mean Corpuscular Hemoglobin 28.7 pg (27.0-31.2); Mean Corpuscular Volume 91.8 fl (80-94); Mean Platelet Volume 8.9 fl (7.4-10.4); Monocytes # 0.9 K/mm3 (0.1-1.0); Monocytes % 7.1 % (1.7-9.3); Neutrophils # 9.1 K/mm3 (1.8-7.8); Neutrophils % 74.8 % (37.0-80.0); Platelet Count 372 K/mm3 (142-424); Red Blood Count 4.07 M/mm3 (4.60-6.20); Red Cell Distribution Width 14.5 % (11.5-17.5); White Blood Count 12.1 K/mm3 (4.8-10.8)
[2022-11-23 17:42] LABS: Alanine Aminotransferase 23 U/L (12-78); Albumin Level 3.8 g/dl (3.5-5.0); Alkaline Phosphatase 67 U/L (38-126); Anion Gap 11.2 mEq/L (5-15); Aspartate Amino Transferase 30 U/L (17-59); Bilirubin,Total 0.4 mg/dl (0.2-1.3); Blood Urea Nitrogen 26 mg/dl (9-20); Calcium 9.5 mg/dl (8.4-10.2); Carbon Dioxide 33 mmol/L (22.0-30.0); Chloride 104 mmol/L (98-107); Cholesterol 181 mg/dl (140-200); Estimated Glomerular Filt Rate 38 ml/min (>60); GFR (African American) 46 ML/MIN (>60); Glucose 105 mg/dl (74-100); HDL Cholesterol 30 mg/dl (40-60); Potassium 4.2 mmoL/L (3.5-5.1); Sodium 144 mmol/L (136-145); Total Protein,Serum 7.8 g/dl (6.3-8.2); Triglycerides 200 mg/dl (30-150); VLDL Cholesterol 40 mg/dL (0-40)
[2022-11-23 17:53] LABS: Direct LDL Cholesterol 104.83 mg/dL (100-129)
[2022-11-23 18:14] LABS: Thyroid Stimulating Hormone 6.27 uIU/mL (0.465-4.68)
== END ==
PROVIDERS: PCP Family Medicine; Visit Provider Family Medicine
DX: I25.10 Atherosclerotic heart disease of native coronary artery without angina pectoris (principal); E03.9 Hypothyroidism, unspecified; E78.5 Hyperlipidemia, unspecified
CPT/HCPCS: 80053; 80061; 84443; 85025

== ENCOUNTER → 2023-01-21 16:47 | Outpatient (CLI) | payer OTHER, SELFPAY ==
[2023-01-21 16:49] LABS: Anion Gap 11.8 mEq/L (5-15); Blood Urea Nitrogen 21 mg/dl (9-20); Carbon Dioxide 33 mmol/L (22.0-30.0); Chloride 100 mmol/L (98-107); Estimated Glomerular Filt Rate 47 ml/min (>60); GFR (African American) 57 ML/MIN (>60); Glucose 100 mg/dl (74-100); Potassium 4.8 mmoL/L (3.5-5.1); Sodium 140 mmol/L (136-145)
== END ==
PROVIDERS: PCP Family Medicine; Visit Provider Family Medicine
DX: I25.10 Atherosclerotic heart disease of native coronary artery without angina pectoris (principal); I10 Essential (primary) hypertension; Z87.891 Personal history of nicotine dependence
CPT/HCPCS: 80048

== ENCOUNTER → 2023-04-18 14:52 | Outpatient (CLI) | payer MEDICARE, SELFPAY ==
--- NOTE | 2023-04-18 14:57 | US_ITS ---
FINAL REPORT TECHNIQUE: Real-time grayscale and color ultrasound of the thyroid was performed. CLINICAL HISTORY: enlarged thyroid FINDINGS: The thyroid gland measures 8.5 cm on the right and 8.4 cm on the left. The isthmus measures 1.8 cm. The parenchyma is diffusely heterogeneous. Nodules: There is a hypoechoic area superior to the isthmus probably representing exophytic nodule measuring 2.9 x 1.3 cm. IMPRESSION: TR 4 nodule superior to the isthmus. Recommend FNA. Reviewed, Interpreted and Dictated by Binh Rea MD Transcribed by Alena Oneil Authenticated and [facility]
[2023-04-18 16:54] LABS: Basophils % 0.4 % (0.1-2.0); Eosinophils # 0.3 K/mm3 (0.0-0.4); Eosinophils % 2.2 % (0.1-12.0); Hematocrit 36.1 % (42.0-52.0); Hemoglobin 11.6 g/dL (14.1-18.0); Lymphocytes # 1.9 K/mm3 (0.7-4.5); Mean Corpuscular Hemoglobin 28.9 pg (27.0-31.2); Mean Corpuscular Volume 90.1 fl (80-94); Mean Platelet Volume 7.2 fl (7.4-10.4); Monocytes # 0.6 K/mm3 (0.1-1.0); Monocytes % 4.9 % (1.7-9.3); Neutrophils # 8.5 K/mm3 (1.8-7.8); Neutrophils % 75.6 % (37.0-80.0); Platelet Count 434 K/mm3 (142-424); Red Cell Distribution Width 15.3 % (11.5-17.5); White Blood Count 11.3 K/mm3 (4.8-10.8)
[2023-04-18 16:57] LABS: Alanine Aminotransferase 24 U/L (12-78); Albumin Level 3.9 g/dl (3.5-5.0); Albumin/Globulin Ratio 0.8 (1.1-1.8); Alkaline Phosphatase 52 U/L (38-126); Anion Gap 6.9 mEq/L (5-15); Aspartate Amino Transferase 34 U/L (17-59); Bilirubin,Total 0.3 mg/dl (0.2-1.3); Blood Urea Nitrogen 18 mg/dl (9-20); Calcium 8.6 mg/dl (8.4-10.2); Carbon Dioxide 34 mmol/L (22.0-30.0); Chloride 102 mmol/L (98-107); Estimated Glomerular Filt Rate 44 ml/min (>60); GFR (African American) 53 ML/MIN (>60); Globulin 4.6 g/dL (1.3-3.2); Glucose 126 mg/dl (74-100); Potassium 3.9 mmoL/L (3.5-5.1); Sodium 139 mmol/L (136-145); Total Protein,Serum 8.5 g/dl (6.3-8.2)
[2023-04-18 17:14] LABS: T4 (Thyroxine) 6.4 ug/dl (5.53-11.0)
== END ==
LOC: RAD 14:53
PROVIDERS: PCP Family Medicine; Visit Provider Family Medicine
DX: E04.9 Nontoxic goiter, unspecified (principal); R13.10 Dysphagia, unspecified; R49.0 Dysphonia
CPT/HCPCS: 76536; 80053; 84436; 84443; 85025

== ENCOUNTER 2023-05-13 08:55 | Outpatient (CLI) | payer MEDICARE, SELFPAY ==
--- NOTE | 2023-05-13 08:55 | US_ITS ---
FINAL REPORT CLINICAL HISTORY: .MITCH MARTIN -- MASS SUPERIOR TO ISTHMUS -- FNA X4 FINDINGS: Ultrasound guided thyroid biopsy. HISTORY: Thyroid mass. PROCEDURE: After informed consent was obtained and a time-out was performed, the patient was prepped and draped in usual sterile fashion over the anterior neck. Utilizing local anesthesia and sterile technique with a 25-gauge needle, access to the lesion just superior to the isthmus was obtained. Four passes were made. The patient received no conscious sedation. The patient tolerated procedure well and left the department in good condition. IMPRESSION: Status post ultrasound guided biopsy of an isthmus thyroid nodule without immediate complication. Films reviewed , interpreted and dictated by Dr. Meade Transcribed by Mitch Wright PA-C. Reviewed, Interpreted and Dictated by Richard Meade III, MD Transcribed by VERONICA Harris Authenticated and [facility]
== END 2023-05-13 23:59 ==
LOC: RAD 08:55
PROVIDERS: PCP Family Medicine; Visit Provider Family Medicine
DX: R94.6 Abnormal results of thyroid function studies (principal)
CPT/HCPCS: 10005; 76536; 88173; 88305

== ENCOUNTER 2023-05-17 07:02 | Outpatient (CLI) | payer MEDICARE, SELFPAY ==
--- NOTE | 2023-05-17 | CA_ITS ---
APPROVED REPORT Exam: Pharmacologic Technologist: Jessica Wood, Ht: 5 ft 9 in Wt: 239 lbs BSA: 2.23 m2 HR: 78 bpm BP: 145/80 mmHg Rhythm: SR Medical History Medical History: HTN, Smoking Medications: Amlodipine,,,,, Levothyroxine,,,,, Aspirin,,,,, Losartan,,,,, Pantoprazole,,,,, Atorvastatin,,,,, Carvedilol,,,,, Albuterol,,,,, Montelukast,,,,, MeLOXICAM,,,,, CloPIdogrel,,,,, Nitroglycerin,,,,, Allergies: No known drug allergies Cardiac Risk Factors: HTN, FHX of CAD, Smoking Stress Test Details Test: LEXISCAN HR Resting HR: 79 bpm Max Heart Rate (APMHR): 155 bpm Max HR Achieved: 89 bpm Target HR (85% APMHR): 132 bpm % of APMHR: 57 Recovery HR: 85 bpm BP Resting BP: 145/80 mmHg Max BP: 145/80 mmHg Recovery BP: 138.0/70.0 mmHg ECG Resting ECG: Normal sinus rhythm Stress ECG: No significant ST changes Arrhythmia: None Clinical Exercise duration: 04:00 min Highest Stage Achieved: Exercise capacity: 1.0 METs Stress ECG Conclusion Patient developed dyspnea No significant ST changes Ectopy: None Conclusion: Unremarkable Lexiscan stress test. Myoview images are reported separately. Test Summary REST 10:13 . . 79 . 145/ 80 . . Stage 1 . . . . . . . Myoview Injected Stage 1 01:00 . . 84 . . . . Stage 2 01:00 . . 89 . 113/ 62 . . Stage 3 01:00 . . 88 . 122/ 68 . . Stage 4 01:00 . . 88 . 96/ 63 . Stop exercise at 04:00 RECOVERY 01:00 . . 88 . 140/ 70 . . RECOVERY 02:00 . . 85 . 143/ 68 . . RECOVERY 02:57 . . 85 . 138/ 70 . . Electronically signed by : Tereza Mena MD 05/18/2023 04:19:30
--- NOTE | 2023-05-17 07:03 | NM_ITS ---
APPROVED REPORT Exam: Nuclear Stress Test Indication: SOB, CAD, HTN, High cholesterol, Former tobacco use, Family history Patient Location: Outpatient Stress Tech: Jessica Wood ND Tech:Pattie Pérez, ARRT, RT (R)(N) Ht: 5 ft 9 in Wt: 239 lbs HR: 79 bpm BP: 145/80 mmHg BSA: 2.23 m2 TID: 1.14 BMI: 35.2 History: SOB, CAD, HTN, High cholesterol, Former tobacco use, Family history Procedure: Patient received 0.4 mg of intravenous Lexiscan, resting heart rate 79 bpm, resting blood pressure 145/80 mmHg, with Lexiscan maximum heart rate achieved was 89 bpm which is % of the maximum predicted heart rate and blood pressure was 145/80 mmHg. With Lexiscan, patient denied any complaint of chest pain. Cardiac Stress and Resting SPECT Images: Cardiac Stress and Resting SPECT images were obtained using technetium 99m Myoview 32.1 mCi stress and 10.87 mCi at rest. Resting and stress imaging in supine and prone positions demonstrate a small sized, moderate, fixed perfusion defect in the distal inferior LV wall. Gated imaging demonstrates normal global and regional LV systolic function. LVEF is calculated at 59%. Conclusion: Small sized, moderate, fixed perfusion defect in the distal inferior LV wall. No evidence of reversible ischemia. Gated imaging demonstrates normal global and regional LV systolic function. LVEF is calculated at 59%. Electronically signed by : Tereza Mena MD 05/18/2023 04:21:59
[2023-05-17] MEDS: REGADENOSON 0.4MG/5ML SYRINGE 0.400000000000000022 MG IV (09:16)
[2023-05-17] MEDS: ISOTOPE MYOVIEW (PER STUDY) 1 DOSE IV (09:16)
[2023-05-17] MEDS: SODIUM CHLORIDE 0.9% 10ML SYR (RAD ONLY) 10 ML IV ×2 (09:16)
== END 2023-05-17 23:59 ==
PROVIDERS: PCP Family Medicine; Visit Provider Physician Assistant
DX: E66.9 Obesity, unspecified (principal); E78.5 Hyperlipidemia, unspecified; I11.9 Hypertensive heart disease without heart failure; I25.10 Atherosclerotic heart disease of native coronary artery without angina pectoris; Z01.810 Encounter for preprocedural cardiovascular examination; Z68.35 Body mass index [BMI] 35.0-35.9, adult; I71.40 Abdominal aortic aneurysm, without rupture, unspecified
CPT/HCPCS: 78452; 93017; 93018; A9502; J2785

== ENCOUNTER → 2023-07-25 20:16 | Outpatient (CLI) | payer MEDICARE, SELFPAY | LOC: SL 20:19 | PROVIDERS: PCP Family Medicine; Visit Provider Nurse Practitioner Family | DX: G47.33 Obstructive sleep apnea (adult) (pediatric) (principal); R06.83 Snoring; G47.34 Idiopathic sleep related nonobstructive alveolar hypoventilation; J43.9 Emphysema, unspecified | CPT/HCPCS: 95811 ==

== ENCOUNTER 2023-08-24 18:00 | Outpatient (CLI) | payer MEDICARE, SELFPAY ==
[2023-08-24 16:42] LABS: Basophils # 0.1 K/mm3 (0-0.2); Eosinophils # 0.3 K/mm3 (0.0-0.4); Eosinophils % 3.2 % (0.1-12.0); Hematocrit 39.7 % (42.0-52.0); Hemoglobin 12.4 g/dL (14.1-18.0); Lymphocytes # 2.2 K/mm3 (0.7-4.5); Lymphocytes % 21.1 % (10-50); Mean Corpuscular HGB Conc 31.2 g/dL (31.8-35.4); Mean Corpuscular Hemoglobin 29.7 pg (27.0-31.2); Mean Corpuscular Volume 95.2 fl (80-94); Monocytes # 0.6 K/mm3 (0.1-1.0); Monocytes % 6.1 % (1.7-9.3); Neutrophils # 7.1 K/mm3 (1.8-7.8); Neutrophils % 68.6 % (37.0-80.0); Platelet Count 345 K/mm3 (142-424); Red Blood Count 4.17 M/mm3 (4.60-6.20); Red Cell Distribution Width 16.7 % (11.5-17.5); White Blood Count 10.3 K/mm3 (4.8-10.8)
[2023-08-24 16:44] LABS: Alanine Aminotransferase 39 U/L (12-78); Albumin Level 4.2 g/dl (3.5-5.0); Albumin/Globulin Ratio 1.4 (1.1-1.8); Alkaline Phosphatase 42 U/L (38-126); Aspartate Amino Transferase 42 U/L (17-59); Bilirubin,Total 0.3 mg/dl (0.2-1.3); Blood Urea Nitrogen 38 mg/dl (9-20); Carbon Dioxide 31 mmol/L (22.0-30.0); Chloride 105 mmol/L (98-107); Estimated Glomerular Filt Rate 34 ml/min (>60); GFR (African American) 41 ML/MIN (>60); Globulin 2.9 g/dL (1.3-3.2); Glucose 106 mg/dl (74-100); Sodium 140 mmol/L (136-145); Total Protein,Serum 7.1 g/dl (6.3-8.2)
[2023-08-24 16:57] LABS: Intact Parathyroid Hormone 21.3 pg/mL (7.5-53.5)
[2023-08-24 17:02] LABS: Free T4 (Free Thyroxine) 1.03 ng/dl (0.78-2.19); T4 (Thyroxine) 7.9 ug/dl (5.53-11.0)
[2023-08-24 17:15] LABS: Thyroid Stimulating Hormone 4.98 uIU/mL (0.465-4.68)
[2023-08-25 11:24] LABS: Alanine Aminotransferase 40 U/L (12-78); Alkaline Phosphatase 45 U/L (38-126); Aspartate Amino Transferase 41 U/L (17-59); Bilirubin,Direct 0.3 mg/dl (0.0-0.4); Bilirubin,Total 0.3 mg/dl (0.2-1.3); Chol/HDL Ratio 7.2 (1-3.5); Cholesterol 217 mg/dl (140-200); HDL Cholesterol 30 mg/dl (40-60); Total Protein,Serum 7.1 g/dl (6.3-8.2); Triglycerides 277 mg/dl (30-150); VLDL Cholesterol 55 mg/dL (0-40)
[2023-08-25 11:35] LABS: Direct LDL Cholesterol 129.08 mg/dL (100-129)
== END 2023-08-24 23:59 | disposition home or self-care (01) ==
LOC: LAB.DROPOF 08-25 10:13
PROVIDERS: Physician Assistant; PCP Family Medicine; Visit Provider Family Medicine
DX: E89.0 Postprocedural hypothyroidism (principal); I11.9 Hypertensive heart disease without heart failure; E66.01 Morbid (severe) obesity due to excess calories; Z68.35 Body mass index [BMI] 35.0-35.9, adult; R06.09 Other forms of dyspnea; I71.43 Infrarenal abdominal aortic aneurysm, without rupture; E78.2 Mixed hyperlipidemia; I25.10 Atherosclerotic heart disease of native coronary artery without angina pectoris; Z68.38 Body mass index [BMI] 38.0-38.9, adult; Z79.899 Other long term (current) drug therapy
CPT/HCPCS: 80053; 80061; 80076; 82330; 83970; 84436; 84439; 84443; 85025

== ENCOUNTER 2023-09-22 08:18 | Outpatient (CLI) | payer MEDICARE, SELFPAY ==
[2023-09-22 09:44] LABS: Alanine Aminotransferase 48 U/L (12-78); Alkaline Phosphatase 40 U/L (38-126); Aspartate Amino Transferase 43 U/L (17-59); Bilirubin,Direct 0.1 mg/dl (0.0-0.4); Bilirubin,Indirect 0.4 mg/dL (0.0-0.9); Bilirubin,Total 0.5 mg/dl (0.2-1.3); Bilirubin,Unconjugated 0.3 mg/dL (0.0-1.1); Chol/HDL Ratio 4.2 (1-3.5); Cholesterol 166 mg/dl (140-200); HDL Cholesterol 40 mg/dl (40-60); Total Protein,Serum 6.9 g/dl (6.3-8.2); Triglycerides 192 mg/dl (30-150); VLDL Cholesterol 38 mg/dL (0-40)
[2023-09-22 09:49] LABS: Blood Urea Nitrogen 26 mg/dl (9-20); Calcium 9.8 mg/dl (8.4-10.2); Carbon Dioxide 32 mmol/L (22.0-30.0); Chloride 100 mmol/L (98-107); Estimated Glomerular Filt Rate 51 ml/min (>60); GFR (African American) 61 ML/MIN (>60); Glucose 92 mg/dl (74-100); Sodium 142 mmol/L (136-145)
[2023-09-22 09:56] LABS: Direct LDL Cholesterol 98.86 mg/dL (100-129)
[2023-09-23 15:35] LABS: Calcium, Ionized 5.1 mg/dL (4.5-5.6)
== END 2023-09-22 23:59 | disposition home or self-care (01) ==
LOC: LAB 08:19
PROVIDERS: Physician Assistant; PCP Family Medicine; Visit Provider Family Medicine
DX: D49.7 Neoplasm of unspecified behavior of endocrine glands and other parts of nervous system (principal); E78.2 Mixed hyperlipidemia; I11.9 Hypertensive heart disease without heart failure; I25.10 Atherosclerotic heart disease of native coronary artery without angina pectoris; I71.43 Infrarenal abdominal aortic aneurysm, without rupture; I21.4 Non-ST elevation (NSTEMI) myocardial infarction; Z87.891 Personal history of nicotine dependence
CPT/HCPCS: 36415; 80048; 80061; 80076; 82330

== ENCOUNTER 2023-10-23 07:10 | Outpatient (CLI) | payer MEDICARE, SELFPAY ==
--- NOTE | 2023-10-23 07:20 | XR_ITS ---
PROCEDURE INFORMATION: Exam: XR Lumbosacral Spine Exam date and time: 10/23/2023 7:21 AM Age: 68 years old Clinical indication: Low back pain; Additional info: Pain in legs TECHNIQUE: Imaging protocol: Radiologic exam of the lumbosacral spine. Views: 2 or 3 views. COMPARISON: CT ABDOMEN PELVIS W CON 01/26/2020 7:57 PM FINDINGS: Bones/joints: There is no evidence of acute fracture.There is no evidence of malalignment or dislocation. Intervertebral disc space narrowing L5/S1 may reflect degenerative disc disease.. Anterior osteophyte formation Soft tissues: Unremarkable. IMPRESSION: 1. There is no evidence of acute fracture.There is no evidence of malalignment or dislocation. 2. Intervertebral disc space narrowing L5/S1 may reflect degenerative disc disease..
[2023-10-23 08:53] LABS: Basophils # 0.1 K/mm3 (0-0.2); Eosinophils # 0.3 K/mm3 (0.0-0.4); Eosinophils % 3.6 % (0.1-12.0); Hematocrit 39.4 % (42.0-52.0); Hemoglobin 12.5 g/dL (14.1-18.0); Lymphocytes # 1.9 K/mm3 (0.7-4.5); Lymphocytes % 19.7 % (10-50); Mean Corpuscular HGB Conc 31.6 g/dL (31.8-35.4); Mean Corpuscular Hemoglobin 30.5 pg (27.0-31.2); Mean Corpuscular Volume 96.6 fl (80-94); Mean Platelet Volume 7.8 fl (7.4-10.4); Monocytes # 0.5 K/mm3 (0.1-1.0); Monocytes % 5.2 % (1.7-9.3); Neutrophils # 6.7 K/mm3 (1.8-7.8); Neutrophils % 70.6 % (37.0-80.0); Platelet Count 326 K/mm3 (142-424); Red Blood Count 4.08 M/mm3 (4.60-6.20); Red Cell Distribution Width 16.6 % (11.5-17.5); White Blood Count 9.5 K/mm3 (4.8-10.8)
[2023-10-23 09:31] LABS: Chloride 105 mmol/L (98-107); Sodium 141 mmol/L (136-145)
[2023-10-23 09:34] LABS: Alanine Aminotransferase 39 U/L (12-78); Albumin Level 3.9 g/dl (3.5-5.0); Albumin/Globulin Ratio 1.4 (1.1-1.8); Alkaline Phosphatase 45 U/L (38-126); Aspartate Amino Transferase 37 U/L (17-59); Bilirubin,Total 0.3 mg/dl (0.2-1.3); Blood Urea Nitrogen 21 mg/dl (9-20); Carbon Dioxide 30 mmol/L (22.0-30.0); Estimated Glomerular Filt Rate 47 ml/min (>60); GFR (African American) 57 ML/MIN (>60); Globulin 2.8 g/dL (1.3-3.2); Total Protein,Serum 6.7 g/dl (6.3-8.2)
[2023-10-23 09:35] LABS: Calcium 9.1 mg/dl (8.4-10.2); Glucose 107 mg/dl (74-100)
[2023-10-23 10:05] LABS: Thyroid Stimulating Hormone 9.74 uIU/mL (0.465-4.68)
[2023-10-23 14:44] LABS: Vitamin B12 283 pg/mL (239-931)
[2023-10-24 17:14] LABS: Calcium, Ionized 4.9 mg/dL (4.5-5.6)
== END 2023-10-23 23:59 | disposition home or self-care (01) ==
LOC: LAB 07:11
PROVIDERS: PCP Family Medicine; Visit Provider Nurse Practitioner Family
DX: M54.50 Low back pain, unspecified (principal); R20.2 Paresthesia of skin; R73.09 Other abnormal glucose; E03.9 Hypothyroidism, unspecified; Z68.35 Body mass index [BMI] 35.0-35.9, adult
CPT/HCPCS: 72100; 80050; 80053; 82330; 82607; 83036; 84443; 85025

== ENCOUNTER 2024-08-10 10:20 | Outpatient (CLI) | payer MEDICARE, SELFPAY ==
[2024-08-10 16:39] LABS: Basophils # 0.1 K/mm3 (0-0.2); Basophils % 0.7 % (0.1-2.0); Eosinophils # 0.5 K/mm3 (0.0-0.4); Eosinophils % 5.1 % (0.1-12.0); Hematocrit 41.4 % (42.0-52.0); Lymphocytes # 1.8 K/mm3 (0.7-4.5); Lymphocytes % 17.4 % (10-50); Mean Corpuscular HGB Conc 31.4 g/dL (31.8-35.4); Mean Corpuscular Hemoglobin 31.9 pg (27.0-31.2); Mean Corpuscular Volume 101.5 fl (80-94); Mean Platelet Volume 10.3 fl (7.4-10.4); Monocytes # 0.7 K/mm3 (0.1-1.0); Monocytes % 7.1 % (1.7-9.3); Neutrophils # 7.2 K/mm3 (1.8-7.8); Neutrophils % 69.1 % (37.0-80.0); Nucleated Red Blood Cells # 0 10^3/uL; Nucleated Red Blood Cells % 0 %; Platelet Count 341 K/mm3 (142-424); Red Blood Count 4.08 M/mm3 (4.60-6.20); Red Cell Distribution Width 13.9 % (11.5-17.5); Red Cell Distribution Width-SD 52.3 fL; White Blood Count 10.4 K/mm3 (4.8-10.8)
[2024-08-10 17:07] LABS: Alanine Aminotransferase 36 U/L (12-78); Albumin Level 4.1 g/dl (3.5-5.0); Albumin/Globulin Ratio 1.4 (1.1-1.8); Alkaline Phosphatase 47 U/L (38-126); Anion Gap 15.3 mEq/L (5-15); Aspartate Amino Transferase 34 U/L (17-59); Bilirubin,Total 0.4 mg/dl (0.2-1.3); Blood Urea Nitrogen 21 mg/dl (9-20); Calcium 9.3 mg/dl (8.4-10.2); Carbon Dioxide 31 mmol/L (22.0-30.0); Chloride 101 mmol/L (98-107); Chol/HDL Ratio 4.3 (1-3.5); Cholesterol 160 mg/dl (140-200); Estimated Glomerular Filt Rate 47 ml/min (>60); GFR (African American) 56 ML/MIN (>60); Glucose 70 mg/dl (74-100); HDL Cholesterol 37 mg/dl (40-60); Potassium 5.3 mmoL/L (3.5-5.1); Sodium 142 mmol/L (136-145); Total Protein,Serum 7.1 g/dl (6.3-8.2); Triglycerides 220 mg/dl (30-150); VLDL Cholesterol 44 mg/dL (0-40)
[2024-08-10 17:18] LABS: Direct LDL Cholesterol 88.49 mg/dL (100-129)
[2024-08-10 17:36] LABS: Thyroid Stimulating Hormone 8.35 uIU/mL (0.465-4.68)
[2024-08-10 17:46] LABS: HIV Combo NEGATIVE (Negative)
[2024-08-10 17:52] LABS: Hepatitis C Ab Qual. W/ RFX NEGATIVE (Negative)
== END 2024-08-10 23:59 | disposition home or self-care (01) ==
LOC: LAB.DROPOF 08-13 10:21
PROVIDERS: PCP Nurse Practitioner Family; Visit Provider Nurse Practitioner Family
DX: E03.9 Hypothyroidism, unspecified (principal); M54.50 Low back pain, unspecified
CPT/HCPCS: 80053; 80061; 84443; 85025; 86803; 87389

== ENCOUNTER 2024-11-12 13:00 | Outpatient (POV) | payer MEDICARE, SELFPAY ==
--- NOTE | 2024-11-12 13:17 | A.OFFVIS_ITS ---
HPI Data of Consult Patient: new to practice Consult date: 11/12/24 Requesting Physician: Jennifer Hernandez APRN Primary Care Provider: Robert Oleary MD Reason for consult: Low back pain, bilateral leg pain History of present illness: Mr. Sandoval is a 69 year old male who presents today as a new patient. He is a referral from [facility] in [place]. Today he rates his pain a 7 out of 10.Patient does state that he has chronic low back pain that does radiate into both of his lower legs and has been going on for years. Patient does describe it as an aching, throbbing sensation with numbness and tingling that goes into his legs down to his feet. Patient states the pain is constant and does interfere with his ability perform activities of daily living such as cooking and cleaning. Patient states he cannot stand for long periods of time due to the worsening pain and has to stop and take multiple breaks. Patient states that when he was younger he fell in a coal mine and that these symptoms started then and progressed. He states the last 5 years its progressively worsening. 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 Patient has tried zlrc-iyx-lszuzol medication, heat and ice, topicals, chiropractor therapy with no additional improvement.Patient is currently managed with Vina 5 mg from his primary care. He states he only takes this as needed. He denies any prior injection history or surgical intervention. His Deepak has been reviewed and is appropriate. Pain at rest (0-10 scale): 7 Has patient had previous pain injection?: No Conservative treatment options previously tried: Home exercise plan (Longer than 12 weeks) and Chiropractor (Made worse) cc:: CC: Jennifer Hernandez APRN [facility] Disclaimer: The information contained in this section may have been updated after the patient was seen, as this information can be updated by other users. Medical History Diastolic dysfunction Tricuspid regurgitation Mitral regurgitation Encounter for Department of Transportation (DOT) examination for driving license renewal Neoplasm of thyroid History of thyroidectomy Encounter for pre-operative cardiovascular clearance History of smoking 30 or more pack years Lung nodule Pulmonary emphysema Dyspnea on exertion Normal colonoscopy Hoarseness Change in voice Ex-smoker for less than 1 year Dyspnea Chest pain Smoker HLD (hyperlipidemia) HHD (hypertensive heart disease) CAD (coronary artery disease) Surgical History History of thyroid surgery History of colonoscopy H/O heart artery stent Family History Father Coronary artery disease Social History Smoking Status: Former smoker tobacco type: cigarettes packs per day: 1 second hand exposure: No alcohol intake: never substance use type: former substance user, marijuana, crack/cocaine and methamphetamine current occupational status: employed Travel in the last 8 weeks?: None household members: significant other housing: house marital status: single current occupational exposures/hazards: No caffeine: Yes Review of Systems Review of Systems Review of systems:: pertinent systems reviewed and negative unless documented below Review of systems (narrative): Review of Systems: General: No recent weight changes, no fever, no sleep disturbances Respiratory: No cough, no shortness of air, no recurring pulmonary infections Cardiovascular/peripheral vascular: No chest pain, no palpitations, no edema, no shortness of breath Gastrointestinal: No new onset incontinence, normal bowel movements reported Genitourinary: No new onset incontinence Musculoskeletal: Low back pain, bilateral leg pain Psychiatric: [Normal mood/affect] Neurological: [Denies weakness in extremities], [denies balance issues] Meds Home Medications and Allergies Home Medications ?Medication ?Instructions ?Recorded ?Confirmed ?Type nitroglycerin 0.4 mg sublingual 0.4 mg sublingual Q5-1 5M PRN chest 09/30/20 11/12/24 Rx tablet pain #25 tabs docusate sodium 50 mg capsule 50 mg PO DAILY 01/18/22 11/12/24 History (Stool Softener) multivitamin,zn-bdjv-jijlzdbk tab PO 01/18/22 11/12/24 History albuterol sulfate 90 mcg/actuation 2 puff inhalation Q 6H PRN 10/04/22 11/12/24 Rx aerosol inhaler (ProAir HFA) shortness of breath or wh eezing #8.5 grams acetaminophen 500 mg tablet 500 mg PO Q6H PRN 06/13/23 11/12/24 History (Tylenol Extra Strength) cetirizine 10 mg tablet 10 mg PO DAILY PRN allergy 0 08/25/23 11/12/24 Rx symptoms 90 days #90 tabs bupropion HCl 150 mg tablet,12 hr 150 mg PO TID PRN SM OKING 12/27/23 11/12/24 Rx sustained-release CESSATION 90 days #90 ea fluticasone 100 mcg-salmeterol 50 1 inh inhalation BID 90 days #60 ea 02/27/24 11/12/24 Rx mcg/dose blistr powdr for inhalation (Advair Diskus) fenofibrate nanocrystallized 48 mg See Rx Instructions .Route 04/30/24 11/12/24 Rx tablet .COMPLEX #180 tabs montelukast 10 mg tablet See Rx Instructions .Route 1 11/12/24 Rx .COMPLEX #90 tabs amlodipine 10 mg tablet 10 mg PO DAILY 90 days #90 t abs 05/16/24 11/12/24 Rx aspirin 81 mg tablet,delayed 81 mg PO DAILY Blood thin ner 90 05/16/24 11/12/24 Rx release (Adult Low Dose Aspirin) days #90 tabs atorvastatin 80 mg tablet 80 mg PO DAILY Cholesterol # 90 tabs 05/16/24 11/12/24 Rx carvedilol 12.5 mg tablet (Coreg) 12.5 mg PO BID 90 da ys #180 tabs 05/16/24 11/12/24 Rx ezetimibe 10 mg tablet (Zetia) 10 mg PO DAILY #90 tabs 05/16/24 11/12/24 Rx isosorbide mononitrate 30 mg 30 mg PO DAILY Hypertensi on 05/16/24 11/12/24 Rx tablet,extended release 24 hr days #90 tabs losartan 100 mg tablet 100 mg PO DAILY Hypertension 90 05/16/24 11/12/24 Rx days #90 tabs pantoprazole 40 mg tablet,delayed 40 mg PO DAILY #90 t abs 05/16/24 11/12/24 Rx release hydrocodone 5 mg-acetaminophen 325 1 tab PO Q6H PRN pa in #30 tabs 08/10/24 11/12/24 Rx mg tablet levothyroxine 100 mcg tablet 100 mcg PO DAILY #90 tabs 08/13/24 11/12/24 Rx hydroxyzine HCl 25 mg tablet 25 mg PO TID PRN anxiety 90 days 10/12/24 11/12/24 Rx #270 tabs levothyroxine 200 mcg tablet 200 mcg PO DAILY #90 tabs 11/12/24 11/12/24 Rx New Prescriptions to Start Prescriptions: Allergies Allergy/AdvReac Type Severity Reaction Status Date / Time No Known Allergies Allergy Verified 11/12/24 11:20 Objective Narrative: Physical Exam: General: Alert and oriented x3, no acute distress, pleasant and cooperative Lungs: Respirations even and unlabored, symmetrical chest expansion Eyes: PERRL Musculoskeletal: Flexion and extension of lumbar [spine] somewhat guarded secondary to pain, [antalgic gait noted] positive leg raise Neurological: Speech clear, no gross sensory deficit Additional findings Additional findings: INDINGS: Bones/joints: There is no evidence of acute fracture.There is no evidence of malalignment or dislocation. Intervertebral disc space narrowing L5/S1 may reflect degenerative disc disease.. Anterior osteophyte formation Soft tissues: Unremarkable. IMPRESSION: 1. There is no evidence of acute fracture.There is no evidence of malalignment or dislocation. 2. Intervertebral disc space narrowing L5/S1 may reflect degenerative disc disease.. Assessment and Plan *Assessment and plan (1) Degenerative disc disease: Status: Acute Category: Medical (2) Lumbar radiculopathy: Status: Acute Category: Medical Code(s): M54.16 - Radiculopathy, lumbar region Plan Patient is experiencing worsening pain in his low back with numbness and tingling into his lower extremities. Patient did have limited range of motion of his lumbar spine with a positive leg raise. I did discuss with patient that I do believe they would benefit from a lumbar epidural steroid injection. Risk and benefits were discussed with patient and the patient would like to proceed forward with this plan of care. Patient is not on any blood thinners. Patient has tried and failed conservative therapy including oral medications, heat and ice, topicals, chiropractor therapy and continued at home stretching exercise for longer than 12 weeks. Patient has had chronic back pain for longer than 6 months. Patient has not ever had a lumbar epidural in the past to compare to. We will schedule the patient for an LESI L4-L5 under fluoroscopy. I will also order the patient a compounded cream. Patient's blood pressure was elevated during today's visit. Patient is on blood pressure medication from his primary care. He was counseled that if it continues to be elevated to please follow-up with his primary care to review possible medication changes. Patient has been instructed to contact the clinic with any concerns before the next appointment. Dr. Parmar has reviewed this note and agrees with this plan of care. This note was dictated using voice recognition software and make contain errors or omissions. All injections are used with Lidocaine, Bupivacaine and dexamethasone. Occasionally urine drug screen is needed to verify patient's compliance with our office pain contract. This is ordered based off specific treatments related to chronic pain with the potential to abuse certain medications.
--- OUTSIDE RECORDS SUMMARY | 2024-11-12 13:22 | XMS_ITS | Clinical Summary ---
Author Organization [facility] Address [address] 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 Active levothyroxine (Synthroid, Levoxyl) 100 MCG tablet 9 Active cetirizine (ZyrTEC) 10 MG tablet Take 1 tablet (10 mg) by mouth 1 (one) time each day. 4 Active isosorbide mononitrate ER (Imdur) 30 MG 24 hr tablet 3 Active buPROPion SR (Wellbutrin SR) 150 MG 12 hr tablet TAKE 1 TABLET BY MOUTH THREE TIMES DAILY NEEDED FOR SMOKING CESSATION 4 Active carvedilol (Coreg) 12.5 MG tablet 3 Active fenofibrate (Tricor) 48 MG tablet 3 Active hydrOXYzine HCl (Atarax) 25 MG tablet 3 Active atorvastatin (Lipitor) 80 MG tablet Take 1 tablet (80 mg) by mouth 1 (one) time each day. Active montelukast (Singulair) 10 MG tablet 3 Active acetaminophen (Tylenol) 325 MG tablet Take 2 tablets (650 mg) by mouth every 6 (six) hours if needed for pain. 100 tablet 4 Active ibuprofen 600 MG tablet Take 1 tablet (600 mg) by mouth every 6 (six) hours if needed for mild pain. 40 tablet 4 Active oxyCODONE (Roxicodone) 5 MG immediate release tablet Take 1 tablet (5 mg) by mouth every 6 (six) hours if needed for severe pain. 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 Second hand smoke exposure 07/26/2023 Goiter 07/21/2023 Thyroid goiter 07/20/2023 Family History Medical History Relation Name Comments No Known Problems Father No Known Problems Mother Relation Name Status Comments Father Mother Social History Tobacco Use Types Packs/Day Years Used Date Smoking Tobacco: Former Cigarettes 3 53 1 8 2020 Smokeless Tobacco: Never Tobacco Cessation:Counseling Given: No Sex and Gender Information Value Date Recorded Sex Assigned at Not on file Legal Sex Male 7:15 PM EDT Gender Identity Not on file Sexual Orientation Not on file Last Filed Vital Signs Vital Sign Reading Time Taken Comments Blood Pressure 133/82 07/26/2023 10:33 AM EDT Pulse 74 07/26/2023 10:33 AM EDT Temperature 36.4 C (97.5 F) 07/26/2023 10:33 AM EDT Respiratory Rate 20 07/26/2023 10:33 AM EDT Oxygen Saturation 93% 07/26/2023 10:33 AM EDT Inhaled Oxygen Concentration - - Weight 109 kg (240 lb 4.8 oz) 07/26/2023 10:33 A M EDT Height 175.3 cm (5' 9 ) 07/14/2023 4:01 PM EDT Body Mass Index 35.49 07/14/2023 4:01 PM EDT Plan of Treatment Health Maintenance Due Date Last Done Comments [facility]-Depression Screening 1957 [facility]-Hepatitis C Screening 1955 [facility]-Medicare Annual Wellness (AWV) 1955 [facility]-/Child/Adol SDOH Screenings 1955 [facility]- SDOH Screenings 07/24/1975 [facility]-Adult SDOH Screenings 07/24/1975 [facility]-DTaP,Tdap,and Td Vaccines (1 - Tdap) 1976 CT Colonography 2002 Colonoscopy 2002 FIT-DNA 2002 FIT 2002 FOBT 2002 Sigmoidoscopy 2002 [facility]-Colorectal Cancer Screening 2002 [facility]-Lung Cancer Screening 07/24/2007 [facility]-Zoster Vaccines (1 of 2) 07/24/2007 [facility]-RSV Vaccine: 60+ Years or (1 - Risk 60-74 years 1-dose series) 2017 NMR-VLEQA-24 Vaccine (4 - season) 2024 02/22/2022, 04/03/2021, 08/07/2020 [facility]-Influenza Vaccine (#1) 12/31/202402/08, 02/22/2022, 01/30/2021, Additional history exists [facility]-Pneumococcal Vaccine: 50+ Years Completed 11/23/2022, 06/18/2019 [facility]-Obesity Intervention Completed 06/29/2023 HPV Vaccines Aged Out No longer eligi ble based on patient's age to complete this topic [facility]-HIB Vaccines Aged Out No longer e ligible based on patient's age to complete this topic [facility]-Hepatitis A Vaccines Aged Out No longer eligible based on patient's age to complete this topic [facility]-IPV Vaccines Aged Out No longer e ligible based on patient's age to complete this topic [facility]-Rotavirus Vaccines Aged Out No lo nger eligible based on patient's age to complete this topic Insurance MEDICARE Advance Directives * Full Code (Latest Code Status on File) Date Activated Date Inactivated Comments 07/20/2023 1:37 PM 07/21/2023 6:16 PM Question Answer Comments Patient has decision-making capacity? Yes Care Teams Dairy Truck Driver Relationship Specialty Start Date End Date Robert Oleary MD PCP - General Family Medicine 06/28/23
--- OUTSIDE RECORDS SUMMARY | 2024-11-12 13:22 | XMS_ITS | Encounter Summary ---
Author Organization Healthcare Address [address] [place] [address] Care Team Providers Care Mixer And Scaler Name Role Phone Anaid Groves AUBREY Primary Care Provider [phone] Robert Oleary MD Primary Care Provider Rosa vailable Encounter Details Date Type Department Care Team (Late st Contact Info) Description 06/16/2023 Lab Requisition [facility] [address] [place] [address] Fantasma Tejada MD [address] [place] [address] Nontoxic diffuse goiter Social History Tobacco Use Types Packs/Day Years Used Date Smoking Tobacco: Former Sex and Gender Information Value Date Recorded Sex Assigned at Not on file Legal Sex Male 7:15 PM EDT Gender Identity Not on file Sexual Orientation Not on file documented as of this encounter Plan of Treatment Not on file documented as of this encounter Procedures Procedure Name Priority Date/Time Associated Diagnosis Comments CYTOLOGY CONSULT Routine 06/16/2023 11:0 6 AM EST Nontoxic diffuse goiter documented in this encounter Results * Cytology Consult (06/16/2023 11:06 AM EST) Case Report Cytology Case: [id number] Authorizing Provider: Fantasma Tejada MD Collected: 06/16/20236 Ordering Location: [facility] Received: 06/16/2023 1106 Pathologist: Savana Hardy MD Specimen: Thyroid, [id number] 06/17/2023 11:11 AM EST [facility] Final Diagnosis THYROID, ISTHMUS, FNA (OUTSIDE SLIDES, COLLECTED 05/13/23): - ATYPIA OF UNDETERMINED SIGNIFICANCE - OTHER (BETHESDA CATEGORY III), SEE COMMENT. 06/17/2023 11:11 AM EST [facility] at 1111 EST Comment The specimen is moderately cellular, and shows crowded follicular groups with nuclear enlargement and overlapping. No discernable colloid is noted in the background. Rebiopsy after an appropriate time interval with consideration for molecular testing is suggested. 06/17/2023 11:11 AM EST [facility] Clinical Information E04.0 - Nontoxic diffuse goiter [ICD-10-CM] 06/17/2023 11:11 AM EST [facility] Gross Description A. [id number] Received along with a corresponding pathology report from [facility] are 2 slide(s) labeled outside case: [id number] collected on 05/13/2023. 06/17/2023 11:11 AM EST [facility] Fine Needle Aspirate Thyroid structure / Unknown 06/16/2023 11:06 AM EST 06/16/2023 11:06 AM EST us Fantasma Tejada MD LAB PATHOLOGY ORDERABLES Final R esult [facility] [address] [place] [address] documented in this encounter Visit Diagnoses Diagnosis Nontoxic diffuse goiter Goiter, unspecified documented in this encounter Care Teams Mixer And Scaler Relationship Specialty Start Date End Date Anaid Groves, DISPUTE RESOLUTION ANALYST [address] [place], [place] [id number] PCP - General 09/25/21 06/27/23 Robert Oleary MD [address] [place] [address] PCP - General Family Medicine 06/28/23 documented as of this encounter
[2024-11-12 13:30] VITALS: BP 152/88; PULSE 79; RESP 20; O2SAT 94; BMI 32.5
[2024-11-12 19:13] LABS: Free Thyroxine Index 3.6 ug/dL (5.93-13.13); T4 (Thyroxine) 9.6 ug/dl (5.53-11.0); Triiodothryronine (T3) Uptake 37 % (23.5-40.5)
[2024-11-12 19:28] LABS: Thyroid Stimulating Hormone 2.06 uIU/mL (0.465-4.68)
== END 2024-11-12 23:59 | disposition home or self-care (01) ==
LOC: SC.PAIN 13:04
PROVIDERS: PCP Family Medicine; Visit Provider Nurse Practitioner Family
DX: M54.16 Radiculopathy, lumbar region (principal); Z79.891 Long term (current) use of opiate analgesic
CPT/HCPCS: 84436; 84443; 84479; 99202; G0463

== ENCOUNTER 2024-12-25 07:28 | Outpatient (CLI) | payer MEDICARE, SELFPAY ==
--- NOTE | 2024-12-25 08:00 | CA_ITS ---
APPROVED REPORT EXAM: Comprehensive 2D, Doppler, and color-flow Echocardiogram Utilities Ground Worker: Tessa Calabrese CRT Ht: 5 ft 9 in Wt: 241lbs BSA: 2.24 BP: 158/87 mmHg Indications: Shortness of Breath, CAD, Hyperlipidemia, Hypertension/HDD 2D Dimensions LA Volume 29.00 mL LA Volume Index 12.95 mL/m2 (M/F) 16-34 M-Mode Dimensions RVDd 2.83 cm (0.9-2.6) LA Diam 3.79 cm (1.9-4.0) LVDd 5.11 cm (3.5-5.7) LVDs 3.86 cm (3.5-5.7) IVSd 1.65 cm (0.6-1.1) PWd 0.68 cm (0.6-1.1) EF (Teich) 48.30% FS 24.50% EDV (Teich) 124.40 mL ESV (Teich) 64.30 mL LV Diastology E Decel Time 193 (160-240 msec) E/A Ratio 0.64 MED A' 10.00 cm/s LAT A' 12.90 cm/s Aortic Valve AO Peak GR. 6.40 mmHg Mitral Valve MV A Velocity 97.0 (40-130 cm/s) E/A Ratio 0.64 Tricuspid Valve TR P. Velocity 294.00 cm/s RAP Estimate 10.00 mmHg RVSP 44.50 mmHg Left Ventricle The left ventricle is normal size. Left ventricular systolic function is normal. The left ventricular ejection fraction is within the normal range. There is increased left ventricular wall thickness. There is normal LV segmental wall motion. Transmitral Doppler flow pattern suggests impaired LV relaxation. LVEF is 55% Right Ventricle The right ventricle is normal size. The right ventricular systolic function is normal. Atria The left atrium size is normal. The right atrium size is normal. There is no color Doppler evidence of interatrial shunt. Aortic Valve The aortic valve is mildly thickened. There is no hemodynamically significant aortic valvular stenosis. Trace aortic regurgitation is present. Mitral Valve The mitral valve is mildly thickened. No evidence of mitral valve stenosis. Trace mitral regurgitation is present. Tricuspid Valve The tricuspid valve leaflets are thin and pliable. Trace tricuspid regurgitation. There is insufficient TR jet to estimate RVSP. Pulmonic Valve The pulmonary valve is grossly normal in structure. Trace pulmonic valve regurgitation is present. Great Vessels The aortic root is normal in size. IVC is normal in size and collapses >50% with inspiration. Pericardium There is no pericardial effusion. Other Information Study Quality: Fair Conclusion Normal biventricular systolic function. No significant valvular stenosis or regurgitation. Electronically signed by : Tereza Mena MD 12/25/2024 12:12:27
[2024-12-25 08:27] LABS: Blood Urea Nitrogen 26 mg/dl (9-20); Creatinine,Serum 1.20 mg/dl (0.66-1.25); Estimated Glomerular Filt Rate 60 ml/min (>60); GFR (African American) 73 ML/MIN (>60)
--- NOTE | 2024-12-25 09:00 | CT_ITS ---
FINAL REPORT TECHNIQUE: Section axial images were obtained from the thoracic inlet to the upper abdomen after intravenous contrast injection per PE protocol. CLINICAL HISTORY: pulmonary nodules COMPARISON: 09/25/2021 FINDINGS: The thyroid is absent. The pulmonary arteries are well filled. There is no evidence of pulmonary embolus. Heart size is normal. Soft tissue along the anterior margin of the aorta is slightly less apparent than on the previous exam. RV/LV ratio is less than 1. There is no aortic dissection or intimal flap. There is no mediastinal, hilar, or axillary lymphadenopathy. There is no pleural or pericardial effusion. Subpleural nodularity in the posterior right upper lobe is unchanged. There is evidence of prior granulomatous disease. Emphysematous changes are noted. The previously seen 11 mm right lower lobe nodule has resolved. There is no acute osseous abnormality. IMPRESSION: Resolved right lower lobe pulmonary nodule. Interval thyroidectomy. Reviewed, Interpreted and Dictated by Brisa Rodrigues MD Transcribed by Alena Oneil Authenticated and [facility]
--- NOTE | 2024-12-25 09:00 | CT_ITS ---
FINAL REPORT TECHNIQUE: Thin section axial images were obtained through the abdomen and pelvis after contrast injection per CT angiogram protocol. Multiplanar reconstruction images were obtained from the axial data. This exam was performed with techniques to keep radiation dose as low as reasonably achievable. This includes automated exposure control, adjustment of the MA and KVP, and iterative reconstruction technique. CLINICAL HISTORY: AAA COMPARISON: 01/26/2020 FINDINGS: CTA: There is an ectatic infrarenal abdominal aorta measuring 28 mm. Periaortic soft tissue density seen on the previous exam is less apparent on today's study. There is no evidence of dissection. The celiac axis and SMA are patent without stenosis. The renal arteries are patent. There is stenosis of the RICO at the origin but it is patent. Bilateral common iliac, external iliac, and internal iliac arteries are patent. NONVASCULAR: Within the liver there are several small hypervascular lesions not seen on the previous exam, likely due to contrast bolus timing as no arterial phase images were obtained on the previous exam. Abnormality in the anterior right lobe measures 10 mm. These could represent perfusion abnormalities or even flash filling hemangiomas. The spleen, pancreas, and adrenal glands are without acute abnormality. The kidneys demonstrate no mass or hydronephrosis. The GI tract shows no evidence of bowel obstruction. The appendix is normal. There are no acute abnormalities of the GI tract. There is no lymphadenopathy. No acute osseous abnormality. IMPRESSION: Ectatic infrarenal abdominal aorta. Periaortic soft tissue density seen on the previous exam less apparent on today's study. Hypervascular abnormalities in the liver seen due to arterial phase imaging not performed on the prior exam. These could represent perfusion anomalies, flash filling hemangiomas, or other small enhancing liver lesions. Consider follow-up exam. Reviewed, Interpreted and Dictated by Brisa Rodrigues MD Transcribed by Alena Oneil Authenticated and [facility]
[2024-12-25] MEDS: SODIUM CHLORIDE 0.9% 10ML SYR (RAD ONLY) 10 ML IV (09:35)
[2024-12-25] MEDS: 0.9 % SODIUM CHLORIDE 50 ML VIAL IV (09:35)
[2024-12-25] MEDS: IOPAMIDOL-370 (76%);100ML BOTTLE 80 ML IV (09:35)
== END 2024-12-25 23:59 | disposition home or self-care (01) ==
LOC: RT 07:29
PROVIDERS: PCP Family Medicine; Visit Provider Physician Assistant
DX: I71.43 Infrarenal abdominal aortic aneurysm, without rupture (principal); I08.1 Rheumatic disorders of both mitral and tricuspid valves; I11.9 Hypertensive heart disease without heart failure; I25.10 Atherosclerotic heart disease of native coronary artery without angina pectoris; E89.0 Postprocedural hypothyroidism; E78.5 Hyperlipidemia, unspecified; R91.1 Solitary pulmonary nodule; R93.2 Abnormal findings on diagnostic imaging of liver and biliary tract; R93.89 Abnormal findings on diagnostic imaging of other specified body structures; Z87.891 Personal history of nicotine dependence
CPT/HCPCS: 36415; 71260; 74174; 82565; 84520; 93306; Q9967

== ENCOUNTER 2025-01-08 10:52 | Day surgery (SDC) | payer MEDICARE, SELFPAY ==
[2025-01-08 11:07] VITALS: BP 170/80; PULSE 70; RESP 16; O2SAT 94; BMI 34.7
--- NOTE | 2025-01-08 11:22 | EXP.PAIN.PRO ---
Procedure Date: 01/08/25 Time: 11:20 Anesthesiologist:: Frdedy Light CRNA Complications:: None Pre-procedure Diagnosis:: Degenerative disc lumbar spine multilevels. Lumbar radiculopathy. Post-procedure Diagnosis:: Same Indications for Procedure:: Patient is a pleasant six 9-year-old male who comes our clinic today for lumbar epidural steroid injection. Patient describes low lumbar back pain as well as bilateral hip and leg radicular symptoms as constant, dull, aching. Patient reports having difficulty standing for any length of time. Ambulation is difficult due to low back pain. He rates his pain 8/10. Procedure Details:: Procedure: Lumbar epidural steroid injection under fluoroscopy Informed consent was obtained and the risks and benefits of the procedure were explained to the patient. The patient was taken to the procedure room and noninvasive monitors placed, including noninvasive blood pressure cuff and pulse oximeter. The back was viewed using C-arm Fluoroscopy and prepped using Chloraprep as a cleansing solution and the L4-L5 interspace was palpated. Skin and subcutaneous tissues were anesthetized using lidocaine 1.5% and a 25-gauge needle. After this, an 18-gauge Touhy epidural needle was placed into the L4-L5 interspace and advanced using fluoroscopic guidance and loss of resistance to air until the epidural space was encountered. After confirmation of needle placement in the epidural space, with dye, a solution containing normal saline, 3 mL and dexamethasone 10 mg were incrementally injected into the lumbar epidural space. The patient tolerated the procedure well with no complications. The patient was observed in the Pain Clinic and then discharged home neurologically intact. Plan and Disposition:: Patient was discharged without incident.
[2025-01-08] MEDS: DEXAMETHASONE 10MG/ML 1ML VIAL 10 MG (11:27)
[2025-01-08 11:28] VITALS: BP 153/75; PULSE 84; RESP 18; O2SAT 92
[2025-01-08 11:30] VITALS: BP 164/80; PULSE 80; RESP 18; O2SAT 96
== END 2025-01-08 11:30 | disposition home or self-care (01) ==
PROVIDERS: PCP Family Medicine; Visit Provider Nurse Anesthetist, Certified Registered
DX: M51.16 Intervertebral disc disorders with radiculopathy, lumbar region (principal); I25.10 Atherosclerotic heart disease of native coronary artery without angina pectoris; I11.9 Hypertensive heart disease without heart failure; E78.5 Hyperlipidemia, unspecified; J43.9 Emphysema, unspecified; Z95.5 Presence of coronary angioplasty implant and graft; Z85.850 Personal history of malignant neoplasm of thyroid; Z87.891 Personal history of nicotine dependence; Z79.51 Long term (current) use of inhaled steroids; Z79.899 Other long term (current) drug therapy; Z79.82 Long term (current) use of aspirin
CPT/HCPCS: 62323; J1100

== ENCOUNTER 2025-01-24 14:41 | Inpatient (IN) | payer MEDICARE, SELFPAY ==
--- OUTSIDE RECORDS SUMMARY | 2018-03-04 20:00 | XMS_ITS | Continuity of Care Document ---
Author Organization [facility] Address [address] [place] [id number] Phone Care Team Providers Care Customer Operations Representative Name Role Phone Keeley Farley MD Unavailable Unavailable Procedures Procedure Date DUPLEX SCAN OF EXTREMITY VEINS INCLUDING RESPONS Advance Directives Directive Yes / No Effective Date File Name No Information Encounters Encounter Description Practice Location Reason(s) For Visit Diagnoses Date Provider Providers Copied on Encounter [facility], [address] [place] [address], [id number], tel:[phone] [facility] General Surgery - 852 No Information Miguelito Painter. [address] [place] [address], [id number], [place]. tel:[phone] Referring Provider: Serg Suárez. tel:[phone] Family History Family Member Type Diagnosis Age At Onset No Information Payers Payer name Insurance type Covered libertarian ID Authormarkosa tiandry(s) [facility] [id number] Social History Type Description Quantity Date Captured Comments Sex Male Smoking Status No Information Chief Complaint And Reason For Visit No Information Reason For Referral Reason For Referral No Information History Of Present Illness Encounter Date Complaint History Of Prese nt Illness No Information Functional Status Date Functional Assessmen t No Information Instructions Date Instruction Additional Infor mation No Information Assessments Type Assessment Date No Information Patient Care Teams Name Effective Dates (start - stop) Status Members No Information
[2025-01-24] VITALS (15 sets, daily range): BP systolic 141–176; BP diastolic 59–76; PULSE 77–94; RESP 12–35; TEMP 36.7–37.7; O2SAT 90–94; BMI 34.8; BMI 34.4
--- NOTE | 2025-01-24 14:43 | ECG_ITS ---
APPROVED REPORT Exam: Resting ECG HR:90 bpm ECG Measurements Heart Rate 90 AXES TN 120 P 73 QRSd 84 QRS 75 QT 366 T 67 QTc 413 Conclusion SINUS RHYTHM NORMAL ECG UNCONFIRMED REPORT Electronically signed by : JENY URENA, 01/25/2025 03:57:37
--- NOTE | 2025-01-24 14:48 | XR_ITS ---
FINAL REPORT CLINICAL HISTORY: cough SOB COMPARISON: 08/11/2021 FINDINGS: A portable view of the chest was obtained. Cardiac and mediastinal silhouettes are within normal limits. Right basilar opacity could be atelectasis or pneumonia.. There is no pleural effusion or pneumothorax. IMPRESSION: Right basilar opacity, atelectasis versus pneumonia. Reviewed, Interpreted and Dictated by Brisa Rodrigues MD Transcribed by Alena Oneil Authenticated and [facility]
[2025-01-24] MEDS: IPRATROPIUM/ALBUTEROL 3 ML NEB 9 ML IH (14:51)
[2025-01-24] MEDS: METHYLPREDNISOLONE SOD SUCC 125MG VIAL 125 MG IV (14:51)
[2025-01-24] MEDS: MAGNESIUM SULFATE IN WATER 2 GM/50 ML PIGGYBACK IV (14:52)
--- NOTE | 2025-01-24 14:52 | ED_ITS ---
Discharge Plan Disposition Patient Disposition: Admitted Prescriptions Prescriptions: No Action meclizine 25 mg tablet 25 mg PO HS Qty: 30 2RF Stool Softener 50 mg capsule 50 mg PO DAILY multivitamin,[id number] Tablet 1 tab PO DAILY acetaminophen [Tylenol Extra Strength] 500 mg tablet 500 mg PO Q6H PRN (Reason: Pain) amlodipine 10 mg tablet 10 mg PO DAILY 90 Days Qty: 90 3RF aspirin [Adult Low Dose Aspirin] 81 mg tablet,delayed release (DR/EC) 81 mg PO DAILY 90 Days Qty: 90 3RF atorvastatin 80 mg tablet 80 mg PO DAILY Qty: 90 3RF Patient Comments: UNAWARE OF DOSE OF MEDICATIO carvedilol [Coreg] 12.5 mg tablet 12.5 mg PO BID 90 Days Qty: 180 3RF Rx Instructions: must administer with a meal/food ezetimibe [Zetia] 10 mg tablet 10 mg PO DAILY Qty: 90 3RF isosorbide mononitrate 30 mg tablet extended release 24 hr 30 mg PO DAILY 90 Days Qty: 90 3RF losartan 100 mg tablet 100 mg PO DAILY 90 Days Qty: 90 3RF pantoprazole 40 mg tablet,delayed release (DR/EC) 40 mg PO DAILY Qty: 90 3RF nitroglycerin 0.4 mg tablet, sublingual 0.4 mg SUBLINGUAL Q5-15M PRN (Reason: chest pain) Qty: 25 0RF Rx Instructions: until response; do not exceed 3 doses per episode bupropion HCl 150 mg tablet sustained-release 12 hr 150 mg PO TID PRN (Reason: SMOKING CESSATION) 90 Days Qty: 90 0RF montelukast 10 mg tablet See Rx Instructions .ROUTE .COMPLEX Qty: 90 2RF Dose Instruction: TAKE 1 TABLET 1 TIME EACH DAY Rx Instructions: TAKE 1 TABLET 1 TIME EACH DAY fenofibrate nanocrystallized 48 mg tablet See Rx Instructions .ROUTE .COMPLEX Qty: 180 2RF Dose Instruction: TAKE 2 TABLETS 1 TIME EACH DAY FOR HIGH CHOLESTEROL Rx Instructions: TAKE 2 TABLETS 1 TIME EACH DAY FOR HIGH CHOLESTEROL levothyroxine 100 mcg tablet 100 mcg PO DAILY Qty: 90 2RF hydroxyzine HCl 25 mg tablet 25 mg PO TID PRN (Reason: anxiety) 90 Days Qty: 270 0RF levothyroxine 200 mcg tablet 200 mcg PO DAILY Qty: 90 3RF Rx Instructions: Take first thing in the morning on an empty stomach. albuterol sulfate [ProAir HFA] 90 mcg/actuation HFA aerosol inhaler 2 puff INHALATION Q6H PRN (Reason: shortness of breath or wheezing) Qty: 8.5 3RF fluticasone propion-salmeterol [Advair Diskus] 100-50 mcg/dose blister with device 1 inh inhalation BID 90 Days Qty: 60 2RF Referrals Follow up/Referrals: Provider,Referral, MD [Primary Care Provider, Medical] - See instructions Clinical Impressions Clinical Impression: Pneumonia, Acute hypoxic respiratory failure, Sepsis Print Language Print Language: Amharic Discharge ED Provider: Elias Gamble HPI <Elias Gamble MD - Last Filed: 01/24/25 15:00> General Chief Complaint: Shortness of Breath/Dyspnea Stated Complaint: SOA Time Seen by Provider: 01/24/25 14:43 Mode of Arrival: EMS Source of Information: Patient and EMS Description of Symptoms (Recalled from ER Triage Doc. by RN): PT BROUGHT IN BY [facility] FROM DR TRAN'S OFFICE FOR SHORTNESS OF BREATH, PT STATES HE HAS HAD SHORTNESS OF BREATH AND A PRODUCTIVE COUGH SINCE TUESDAY, PT STATES SPUTUM IS YELLOW, ALSO REPORTS WHEEZING, DENIES CHEST PAIN, DENIES CHILLS OR FEVER, FORMER SMOKER, HX COPD, HTN, CAD, PT WAS 68% ON RA AT THE 'S OFFICE, DOESN'T WEAR O2 AT HOME History of Present Illness HPI narrative: Patient is a 69-year-old male with previous multi pack-year smoker, hypertension, hyperlipidemia, coronary artery disease status post stenting who presents emergency department as a transfer from PCP office for evaluation of shortness of breath. Onset was acute, occurring over the last 72 to 96 hours progressive shortness of breath and cough. No chest pain. Due to persistent symptoms he presented to PCP where he was in the mid 60s on room air was started on oxygen and immediately transferred here via EMS. DuoNeb given and route. No other acute complaints at this time. Please note that above description of symptoms, in this electronic medical record under categorization of recalled from ER triage doctor by RN are reflective of an initial nursing assessment, however, is not reflective of my full history and physical exam that was personally taken and clarified. Consequentially, this preceding description of symptoms, which may include the patient's categorized chief complaint in the EMR, do not reflect my personal clinical impression, and the ultimate description of history of present illness and patient stated complaints should be deferred to this section of the note. Unless stated otherwise or congruent with this section of the note, additional signs, symptoms, or incongruence should be interpreted as inaccurate with my clinical impression. Related Data Home Medications ?Medication ?Instructions ?Recorded ?Confirmed docusate sodium 50 mg capsule 50 mg PO DAILY 01/18/22 01/24/25 (Stool Softener) multivitamin,[id number] 1 tab PO DAILY VITAMIN 0 01/18/22 01/24/25 acetaminophen 500 mg tablet 500 mg PO Q6H PRN Pain 04/2401/24/25 (Tylenol Extra Strength) Previous Rx's ?Medication ?Instructions ?Recorded nitroglycerin 0.4 mg sublingual 0.4 mg sublingual Q5-1 5M PRN chest 09/30/20 tablet pain #25 tabs bupropion HCl 150 mg tablet,12 hr 150 mg PO TID PRN SM OKING 12/27/23 sustained-release CESSATION 90 days #90 ea fenofibrate nanocrystallized 48 mg See Rx Instructions .Route 04/30/24 tablet .COMPLEX #180 tabs montelukast 10 mg tablet See Rx Instructions .Route 1 .COMPLEX #90 tabs amlodipine 10 mg tablet 10 mg PO DAILY 90 days #90 t abs 05/16/24 aspirin 81 mg tablet,delayed 81 mg PO DAILY Blood thin ner 05/16/24 release (Adult Low Dose Aspirin) days #90 tabs atorvastatin 80 mg tablet 80 mg PO DAILY Cholesterol # 90 tabs 05/16/24 carvedilol 12.5 mg tablet (Coreg) 12.5 mg PO BID 90 da ys #180 tabs 05/16/24 ezetimibe 10 mg tablet (Zetia) 10 mg PO DAILY #90 tabs 05/16/24 isosorbide mononitrate 30 mg 30 mg PO DAILY Hypertensi on 05/16/24 tablet,extended release 24 hr days #90 tabs losartan 100 mg tablet 100 mg PO DAILY Hypertension 90 05/16/24 days #90 tabs pantoprazole 40 mg tablet,delayed 40 mg PO DAILY #90 t abs 05/16/24 release levothyroxine 100 mcg tablet 100 mcg PO DAILY #90 tabs 08/13/24 hydroxyzine HCl 25 mg tablet 25 mg PO TID PRN anxiety 90 days 10/12/24 #270 tabs levothyroxine 200 mcg tablet 200 mcg PO DAILY #90 tabs 11/12/24 meclizine 25 mg tablet 25 mg PO HS dizziness #30 ta bs 11/12/24 albuterol sulfate 90 mcg/actuation 2 puff inhalation Q 6H PRN 12/24/24 aerosol inhaler (ProAir HFA) shortness of breath or wh eezing #8.5 grams fluticasone 100 mcg-salmeterol 50 1 inh inhalation BID 90 days #60 ea 12/24/24 mcg/dose blistr powdr for inhalation (Advair Diskus) Allergies Allergy/AdvReac Type Severity Reaction Status Date / Time No Known Allergies Allergy Verified 01/24/25 13:48 [facility] <Elias Gamble MD - Last Filed: 01/24/25 15:00> [facility] Disclaimer: The information contained in this section may have been updated after the patient was seen, as this information can be updated by other users. Medical History Diastolic dysfunction Tricuspid regurgitation Mitral regurgitation Encounter for Department of Transportation (DOT) examination for driving license renewal Neoplasm of thyroid History of thyroidectomy Encounter for pre-operative cardiovascular clearance History of smoking 30 or more pack years Lung nodule Pulmonary emphysema Dyspnea on exertion Normal colonoscopy Hoarseness Change in voice Ex-smoker for less than 1 year Dyspnea Chest pain Smoker HLD (hyperlipidemia) HHD (hypertensive heart disease) CAD (coronary artery disease) Surgical History History of thyroid surgery History of colonoscopy H/O heart artery stent Family History Father Coronary artery disease Social History Smoking Status: Former smoker tobacco type: cigarettes packs per day: 1 second hand exposure: No alcohol intake: never substance use type: former substance user, marijuana, crack/cocaine and methamphetamine current occupational status: employed Travel in the last 8 weeks?: None household members: significant other housing: house marital status: single current occupational exposures/hazards: No caffeine: Yes Have you lived/traveled outside [place] in past 30 days?: No Contact w/someone who lives/traveled outside US past 30 days?: No Exposure to someone with infectious disease in past 14 days?: No Do you have a fever (greater than 100.4 F or 38 C)?: No Have you tested positive for COVID-19?: No Exposed to someone with COVID-19 in past 14 days?: No Do you have a sore throat?: No Do you have a cough?: No Do you have any weakness?: No Do you have any diarrhea?: No Are you experiencing any unusual bleeding?: No Do you have any muscle aches/pain?: No Do you have any abdominal pain?: No Are you experiencing loss of taste or smell?: No Other Medical History Have you received the Flu Vaccine for this season: No Have you received the Pneumonia Vaccine: Yes <Elias Gamble MD - Last Filed: 01/24/25 15:00> ROS Obtained: Yes Systems reviewed as appropriate & no additional complaints except as documented Physical Exam <Elias Gamble MD - Last Filed: 01/24/25 15:00> General General appearance: alert and in distress Head Head exam: atraumatic and normocephalic Eye Eye exam: Present PERRL and EOMI ENT ENT exam: Present mucous membranes moist Neck Neck exam: Present normal inspection Chest Chest inspection: Present normal inspection and symmetric chest wall rise Respiratory Respiratory exam: Present respiratory distress, wheezes, accessory muscle use and other (Minimal air movement in all lung salas); Absent normal lung sounds bilaterally Cardiovascular Cardiovascular exam: Present regular rate and normal rhythm Abdominal Exam Abdominal exam: Present soft; Absent tenderness Extremities Exam Extremities exam: Present normal inspection and edema (1+ edema BLE) Neurological Exam Neurological exam: Present alert Psychiatric Psychiatric exam: Present normal affect Skin Skin exam: Present warm and dry HEART Score <Elias Gamble MD - Last Filed: 01/24/25 15:00> HEART Score HEART Score assessment performed?: Yes History (anamnesis): Slightly suspicious ECG: Normal Age: >65 years Risk factors: Atherosclerosis history Troponin: </= normal limit HEART Score: 4 <Tyrel Carson MD - Last Filed: 01/24/25 17:27> HEART Score HEART Score: 4 Critical Care <Elias Gamble MD - Last Filed: 01/24/25 15:00> Critical Care Time Critical Care Time: No Medical Decision Making <Elias Gamble MD - Last Filed: 01/24/25 15:00> Deepak Inquiry Pt receiving controlled substance: No Vital Signs Vital Signs: 01/24/25 14:44 01/24/25 14:44 01/24/25 15:00 Temperature 99.8 F H Temperature Source Oral Pulse Rate 89 Pulse Rate [Right Radial] 91 H Respiratory Rate 22 18 Blood Pressure 162/70 H Blood Pressure [Right Arm] 159/69 H Blood Pressure Mean Blood Pressure Mean [Right Arm] 99 Blood Pressure Source [Right Arm] Automatic Cuff Blood Pressure Position [Right Arm] Sitting 02 Sat by Pulse Oximetry 91 L 91 L 94 L Oxygen Delivery Method Nasal Cannula Nasal Cannula Nasal Cannula Oxygen Flow Rate (LPM) 4 4 3 01/24/25 15:28 01/24/25 15:28 01/24/25 15:28 Temperature Temperature Source Pulse Rate 87 83 Pulse Rate [Right Radial] Respiratory Rate Blood Pressure Blood Pressure [Right Arm] Blood Pressure Mean Blood Pressure Mean [Right Arm] Blood Pressure Source [Right Arm] Blood Pressure Position [Right Arm] 02 Sat by Pulse Oximetry 93 L Oxygen Delivery Method Nasal Cannula Oxygen Flow Rate (LPM) 3 01/24/25 15:32 01/24/25 16:00 01/24/25 16:30 Temperature Temperature Source Pulse Rate 90 89 87 Pulse Rate [Right Radial] Respiratory Rate 20 20 Blood Pressure 164/72 H 156/76 H 154/73 H Blood Pressure [Right Arm] Blood Pressure Mean 116 102 100 Blood Pressure Mean [Right Arm] Blood Pressure Source [Right Arm] Blood Pressure Position [Right Arm] 02 Sat by Pulse Oximetry 94 L 94 L 91 L Oxygen Delivery Method Nasal Cannula Nasal Cannula Nasal Cannula Oxygen Flow Rate (LPM) 3 3 4 01/24/25 17:00 Temperature Temperature Source Pulse Rate 87 Pulse Rate [Right Radial] Respiratory Rate Blood Pressure 176/74 H Blood Pressure [Right Arm] Blood Pressure Mean Blood Pressure Mean [Right Arm] Blood Pressure Source [Right Arm] Blood Pressure Position [Right Arm] 02 Sat by Pulse Oximetry 92 L Oxygen Delivery Method Nasal Cannula Oxygen Flow Rate (LPM) 4 Lab Data Labs: Lab Results 01/24/25 14:50: WBC 20.7 H*, RBC 4.28 L, Hgb 13.4 L, Hct 40.2 L, MCV 93.9, MCH 31.3 H, MCHC 33.3, RDW 17.3, Plt Count 213, MPV 12.1 H, Neut % (Auto) 88.5 H, L ymph % (Auto) 4.2 L, [place] % (Auto) 6.6, Eos % (Auto) 0.0 L, Baso % (Auto) 0.3, N eut # (Auto) 18.3 H, Lymph # (Auto) 0.9, [place] # (Auto) 1.4 H, Eos # (Auto) 0.0, Baso # (Auto) 0.1 01/24/25 14:56: VBG pH 7.47 H, VBG pCO2 36.6, VBG pO2 57.3 H, VBG HCO3 26.1, VBG Total CO2 27.2 H, VBG O2 Saturation 92.3 H, VBG Base Excess 2.4 H, VBG Lactic Acid 2.0 01/24/25 15:15: SARS-CoV-2 (PCR) Not detected, Influenza A Untype (PCR) Not detected, Influenza Type B (PCR) Not detected 01/24/25 15:30: Sodium 140, Potassium 3.9, Chloride 96 L, Carbon Dioxide 34 H, Anion Gap 13.9, BUN 30 H, Creatinine 1.90 H, Estimated Creat Clear 57, Estimated GFR 36 L, Est GFR ( Amer) 43 L, Glucose 122 H, Calcium 9.3, Total Bilirubin 0.9, AST 55, ALT 40, Alkaline Phosphatase 53, Troponin I < 0.01, Total Protein 7.5, Albumin 4.1, Globulin 3.4 H, Albumin/Globulin Ratio 1.2 01/24/25 14:50 01/24/25 15:30 Response Orders (Tests/Meds): ED MEDICATIONS Discontinued Medications Generic Name Dose Route Start Last Admin Trade Name Freq PRN Reason Stop Dose Admin Albuterol/Ipratropium 9 ml 01/24/25 14:48 01/24/25 14:51 Ipratropium/Albuterol 3 Ml Neb IH 01/24/25 14:49 9 ml ONCE ONE Administration Magnesium Sulfate 2 gm in 50 mls @ 50 mls/hr 01/24/25 14:48 01/24/25 15:52 Magnesium Sulfate 2gm/50ml Premix IV 01/24/25 15:47 Infused ONCE ONE Infusion Azithromycin 500 mg/ Sodium 250 mls @ 250 mls/hr 01/24/25 14:51 01/24/25 16:32 Chloride IV 01/24/25 14:52 Infused ONCE ONE Infusion Ceftriaxone Sodium 1 gm/ 50 mls @ 100 mls/hr 01/24/25 14:51 01/24/25 16:04 Sodium Chloride IV 01/24/25 15:20 Infused ONCE ONE Infusion Methylprednisolone Sodium Succinate 125 mg 01/24/25 14:48 01/24/25 14:51 Methylprednisolone Sod Succ 125mg Vial IV 01/24/25 14:49 125 mg ONCE ONE Administration ORDERS Category Date Time Status CXR --portable [XR chest portable] Stat Exams 01/24/25 14:48 Completed CBC w/Auto Diff [Complete Blood Count Auto Diff] Stat Lab 01/24/25 14:50 Completed CMP [Comprehensive Metabolic Panel] Stat Lab 01/24/25 15:30 Completed Rapid PCR Covid and Flu A/B Stat Lab 01/24/25 15:15 Completed Trop I [Troponin I] Stat Lab 01/24/25 15:30 Completed Troponin I Q3H Lab 01/24/25 18:00 Ordered Troponin I Q3H Lab 01/24/25 21:00 Ordered Blood Culture Stat Micro 01/24/25 15:30 Received VBG [Venous Blood Gas] Stat RT 01/24/25 14:56 Completed Venous Blood Gas Routine RT 01/24/25 14:50 Received ECG Data Tracing #1: ECG Narrative: Independently interpreted by me rate is 90, rhythm is regular, axis is normal, no ST elevation in anatomical contiguous leads, QTc 413. MDM Narrative Medical Decision Narrative: In summary patient is 69-year-old male with past medical history of scrota above who presents emergency department for evaluation of shortness of breath and cough in the setting of previous multi decade here smoker. Patient is hemodynamically stable and in significant respiratory distress upon arrival, saturating greater than 90% on 3 L nasal cannula. He has minimal air movement in all lung salas with scant wheezing, I believe he is so clamped down he is having significant problems with gas exchange. This could be due to viral process or bacterial pneumonia. Workup will be conducted with hematologic labs VBG chest x-ray viral swab. Initial inventions include 3 DuoNebs steroids, IV magnesium, azithromycin, ceftriaxone. Patient appears largely euvolemic to extravascular hypervolemic crystalloid resuscitation was considered but will be deferred. Workup largely pending at time of transition of care to the oncoming physician, Dr. Carson. <Tyrel Carson MD - Last Filed: 01/24/25 17:27> Vital Signs Vital Signs: 01/24/25 14:44 01/24/25 14:44 01/24/25 15:00 Temperature 99.8 F H Temperature Source Oral Pulse Rate 89 Pulse Rate [Right Radial] 91 H Respiratory Rate 22 18 Blood Pressure 162/70 H Blood Pressure [Right Arm] 159/69 H Blood Pressure Mean Blood Pressure Mean [Right Arm] 99 Blood Pressure Source [Right Arm] Automatic Cuff Blood Pressure Position [Right Arm] Sitting 02 Sat by Pulse Oximetry 91 L 91 L 94 L Oxygen Delivery Method Nasal Cannula Nasal Cannula Nasal Cannula Oxygen Flow Rate (LPM) 4 4 3 01/24/25 15:28 01/24/25 15:28 01/24/25 15:28 Temperature Temperature Source Pulse Rate 87 83 Pulse Rate [Right Radial] Respiratory Rate Blood Pressure Blood Pressure [Right Arm] Blood Pressure Mean Blood Pressure Mean [Right Arm] Blood Pressure Source [Right Arm] Blood Pressure Position [Right Arm] 02 Sat by Pulse Oximetry 93 L Oxygen Delivery Method Nasal Cannula Oxygen Flow Rate (LPM) 3 01/24/25 15:32 01/24/25 16:00 01/24/25 16:30 Temperature Temperature Source Pulse Rate 90 89 87 Pulse Rate [Right Radial] Respiratory Rate 20 20 Blood Pressure 164/72 H 156/76 H 154/73 H Blood Pressure [Right Arm] Blood Pressure Mean 116 102 100 Blood Pressure Mean [Right Arm] Blood Pressure Source [Right Arm] Blood Pressure Position [Right Arm] 02 Sat by Pulse Oximetry 94 L 94 L 91 L Oxygen Delivery Method Nasal Cannula Nasal Cannula Nasal Cannula Oxygen Flow Rate (LPM) 3 3 4 01/24/25 17:00 Temperature Temperature Source Pulse Rate 87 Pulse Rate [Right Radial] Respiratory Rate Blood Pressure 176/74 H Blood Pressure [Right Arm] Blood Pressure Mean Blood Pressure Mean [Right Arm] Blood Pressure Source [Right Arm] Blood Pressure Position [Right Arm] 02 Sat by Pulse Oximetry 92 L Oxygen Delivery Method Nasal Cannula Oxygen Flow Rate (LPM) 4 Lab Data Labs: Lab Results 01/24/25 14:50: WBC 20.7 H*, RBC 4.28 L, Hgb 13.4 L, Hct 40.2 L, MCV 93.9, MCH 31.3 H, MCHC 33.3, RDW 17.3, Plt Count 213, MPV 12.1 H, Neut % (Auto) 88.5 H, L ymph % (Auto) 4.2 L, [place] % (Auto) 6.6, Eos % (Auto) 0.0 L, Baso % (Auto) 0.3, N eut # (Auto) 18.3 H, Lymph # (Auto) 0.9, [place] # (Auto) 1.4 H, Eos # (Auto) 0.0, Baso # (Auto) 0.1 01/24/25 14:56: VBG pH 7.47 H, VBG pCO2 36.6, VBG pO2 57.3 H, VBG HCO3 26.1, VBG Total CO2 27.2 H, VBG O2 Saturation 92.3 H, VBG Base Excess 2.4 H, VBG Lactic Acid 2.0 01/24/25 15:15: SARS-CoV-2 (PCR) Not detected, Influenza A Untype (PCR) Not detected, Influenza Type B (PCR) Not detected 01/24/25 15:30: Sodium 140, Potassium 3.9, Chloride 96 L, Carbon Dioxide 34 H, Anion Gap 13.9, BUN 30 H, Creatinine 1.90 H, Estimated Creat Clear 57, Estimated GFR 36 L, Est GFR ( Amer) 43 L, Glucose 122 H, Calcium 9.3, Total Bilirubin 0.9, AST 55, ALT 40, Alkaline Phosphatase 53, Troponin I < 0.01, Total Protein 7.5, Albumin 4.1, Globulin 3.4 H, Albumin/Globulin Ratio 1.2 Response Orders (Tests/Meds): ED MEDICATIONS Discontinued Medications Generic Name Dose Route Start Last Admin Trade Name Freq PRN Reason Stop Dose Admin Albuterol/Ipratropium 9 ml 01/24/25 14:48 01/24/25 14:51 Ipratropium/Albuterol 3 Ml Neb IH 01/24/25 14:49 9 ml ONCE ONE Administration Magnesium Sulfate 2 gm in 50 mls @ 50 mls/hr 01/24/25 14:48 01/24/25 15:52 Magnesium Sulfate 2gm/50ml Premix IV 01/24/25 15:47 Infused ONCE ONE Infusion Azithromycin 500 mg/ Sodium 250 mls @ 250 mls/hr 01/24/25 14:51 01/24/25 16:32 Chloride IV 01/24/25 14:52 Infused ONCE ONE Infusion Ceftriaxone Sodium 1 gm/ 50 mls @ 100 mls/hr 01/24/25 14:51 01/24/25 16:04 Sodium Chloride IV 01/24/25 15:20 Infused ONCE ONE Infusion Methylprednisolone Sodium Succinate 125 mg 01/24/25 14:48 01/24/25 14:51 Methylprednisolone Sod Succ 125mg Vial IV 01/24/25 14:49 125 mg ONCE ONE Administration ORDERS Category Date Time Status CXR --portable [XR chest portable] Stat Exams 01/24/25 14:48 Completed CBC w/Auto Diff [Complete Blood Count Auto Diff] Stat Lab 01/24/25 14:50 Completed CMP [Comprehensive Metabolic Panel] Stat Lab 01/24/25 15:30 Completed Rapid PCR Covid and Flu A/B Stat Lab 01/24/25 15:15 Completed Trop I [Troponin I] Stat Lab 01/24/25 15:30 Completed Troponin I Q3H Lab 01/24/25 18:00 Ordered Troponin I Q3H Lab 01/24/25 21:00 Ordered Blood Culture Stat Micro 01/24/25 15:30 Received VBG [Venous Blood Gas] Stat RT 01/24/25 14:56 Completed Venous Blood Gas Routine RT 01/24/25 14:50 Received MDM Narrative Medical Decision Narrative: In summary patient is 69-year-old male with past medical history of scrota above who presents emergency department for evaluation of shortness of breath and cough in the setting of previous multi decade here smoker. Patient is hemodynamically stable and in significant respiratory distress upon arrival, saturating greater than 90% on 3 L nasal cannula. He has minimal air movement in all lung salas with scant wheezing, I believe he is so clamped down he is having significant problems with gas exchange. This could be due to viral process or bacterial pneumonia. Workup will be conducted with hematologic labs VBG chest x-ray viral swab. Initial inventions include 3 DuoNebs steroids, IV magnesium, azithromycin, ceftriaxone. Patient appears largely euvolemic to extravascular hypervolemic crystalloid resuscitation was considered but will be deferred. Workup largely pending at time of transition of care to the oncoming physician, Dr. Carson. Tyrel Carson MD At the time my assumption of care, plan was to follow-up patient's imaging results and laboratory studies. Consider continuous albuterol nebulizer if remains hypoxic. Patient's WBC is significantly elevated at 20.7 with neutrophilia. VBG with mild metabolic alkalosis at 7.47 lactate normal at 2.0. Patient's chest x-ray was interpreted by me personally with findings concerning for right lower lobe pneumonia. See radiology report for details. Patient is meaning oxygen saturations in the 92-95 range on 3 L nasal cannula at this time. He is breathing comfortably. Given patient's sepsis in the setting of pneumonia and new oxygen requirement, I discussed the patient's case with Dr. Alonso with the hospital medicine service for admission. I also discussed with patient need for admission and he was in agreement with that plan. Ultimately, patient was admitted to the hospitalist service for further management.
[2025-01-24 15:00] LABS: Lactate Venous 2.0 mmol/L (0.4-2.0); VBG HCO3 26.1 mmol/L (23-30); VBG PCO2 36.6 mmol/L (35-51); VBG PH 7.47 mmol/L (7.31-7.41); VBG PO2 57.3 mmol/L (28-40)
[2025-01-24 15:01] LABS: Hematocrit 40.2 % (42.0-52.0); Hemoglobin 13.4 g/dL (14.1-18.0); Immature Granulocytes % 0.4 %; Mean Corpuscular HGB Conc 33.3 g/dL (31.8-35.4); Mean Corpuscular Hemoglobin 31.3 pg (27.0-31.2); Mean Corpuscular Volume 93.9 fl (80-94); Nucleated Red Blood Cells % 0 %; Platelet Count 213 K/mm3 (142-424); Red Blood Count 4.28 M/mm3 (4.60-6.20); Red Cell Distribution Width-SD 56.6 fL; White Blood Count 20.7 K/mm3 (4.8-10.8)
[2025-01-24 15:20] LABS: Coronavirus 19, PCR Not Detected (NotDetected); Influenza A, PCR Not Detected (NotDetected); Influenza B, PCR Not Detected (NotDetected)
[2025-01-24] MEDS: AZITHROMYCIN 500 MG in 0.9 % SODIUM CHLORIDE 250 ML 250 MG IV (15:32)
[2025-01-24] MEDS: CEFTRIAXONE 1 GM 1 GM in 0.9 % SODIUM CHLORIDE 50 ML IV (15:34)
--- OUTSIDE RECORDS SUMMARY | 2025-01-24 15:37 | XMS_ITS | Clinical Summary ---
Author Organization [facility] Address [address] 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 Goiter 07/21/2023 Thyroid goiter 07/20/2023 Resolved Problems Problem Noted Date Diagnosed Date Resolved Date Second hand smoke exposure 07/26/2023 0 01/20/2025 Family History Medical History Relation Name Comments [...] Screening 1955 [facility]-Medicare Annual Wellness (AWV) 1955 [facility]-Infant/Child/Adol SDOH Screenings 1955 [facility]- SDOH Screenings 07/24/1975 [facility]-Adult SDOH Screenings 07/24/1975 [facility]-DTaP,Tdap,and Td Vaccines (1 - Tdap) 1976 CT Colonography 2002 Colonoscopy 2002 FIT-DNA 2002 FIT 2002 FOBT 2002 Sigmoidoscopy 2002 [facility]-Colorectal Cancer Screening 2002 [facility]-Lung Cancer Screening 07/24/2007 [facility]-Zoster Vaccines (1 of 2) 07/24/2007 [facility]-RSV Vaccine: 60+ Years or (1 - Risk 60-74 years 1-dose series) 2017 [id number] Vaccine (4 - 2024- season) 2024 02/22/2022, 04/03/2021, 08/07/2020 [facility]-Influenza Vaccine [...] Patient has decision-making capacity? Yes Care Teams Pumping Supervisor Relationship Specialty Start Date End Date Robert Oleary MD PCP - General Family Medicine 06/28/23
--- OUTSIDE RECORDS SUMMARY | 2025-01-24 15:37 | XMS_ITS | Encounter Summary ---
Author Organization Healthcare Address [address] [place] [address] Care Team Providers Care Jammer Hooker Name Role Phone Anaid Groves AUBREY Primary Care Provider [phone] Robert Oleary MD Primary Care Provider Rosa vailable Encounter Details Date Type Department Care Team (Late st Contact Info) Description 06/16/2023 Lab Requisition [facility] [address] [place] [address] Fantasma Tejada MD [address] [place] [address] Nontoxic diffuse goiter Social History Tobacco Use [...] 11:06 AM EST) Case Report Cytology Case: [id number] Authorizing Provider: Fantasma Tejada MD Collected: 06/16/20236 Ordering Location: [facility] Received: 06/16/2023 1106 Pathologist: Savana Hardy MD Specimen: Thyroid, [id number] 06/17/2023 11:11 AM EST [facility] Final Diagnosis THYROID, ISTHMUS, FNA (OUTSIDE SLIDES, COLLECTED 05/13/23): - ATYPIA OF UNDETERMINED SIGNIFICANCE - OTHER (BETHESDA CATEGORY III), SEE COMMENT. 06/17/2023 11:11 AM EST [facility] at 1111 EST Comment The specimen is moderately cellular, and shows crowded follicular groups with nuclear enlargement and overlapping. No discernable colloid is noted in the background. Rebiopsy after an appropriate time interval with consideration for molecular testing is suggested. 06/17/2023 11:11 AM EST [facility] Clinical Information E04.0 - Nontoxic diffuse goiter [ICD-10-CM] 06/17/2023 11:11 AM EST [facility] Gross Description A. [id number] Received along with a corresponding pathology report from [facility] are 2 slide(s) labeled outside case: [id number] collected on 05/13/2023. 06/17/2023 11:11 AM EST [facility] Fine Needle Aspirate Thyroid structure / Unknown 06/16/2023 11:06 AM EST 06/16/2023 11:06 AM EST us Fantasma Tejada MD LAB PATHOLOGY ORDERABLES Final R esult [facility] [address] [place] [address] documented in this encounter Visit Diagnoses Diagnosis Nontoxic diffuse goiter Goiter, unspecified documented in this encounter Care Teams Jammer Hooker Relationship Specialty Start Date End Date Anaid Groves, [employer] [address] [place], [place] [id number] PCP - General 09/25/21 06/27/23 Robert Oleary MD [address] [place] [address] PCP - General Family Medicine 06/28/23 documented as of this encounter
[2025-01-24 16:12] LABS: Albumin Level 4.1 g/dl (3.5-5.0); Chloride 96 mmol/L (98-107); Potassium 3.9 mmoL/L (3.5-5.1); Sodium 140 mmol/L (136-145)
[2025-01-24 16:15] LABS: Alanine Aminotransferase 40 U/L (12-78); Albumin/Globulin Ratio 1.2 (1.1-1.8); Alkaline Phosphatase 53 U/L (38-126); Anion Gap 13.9 mEq/L (5-15); Aspartate Amino Transferase 55 U/L (17-59); Bilirubin,Total 0.9 mg/dl (0.2-1.3); Calcium 9.3 mg/dl (8.4-10.2); Carbon Dioxide 34 mmol/L (22.0-30.0); Globulin 3.4 g/dL (1.3-3.2); Glucose 122 mg/dl (74-100); Total Protein,Serum 7.5 g/dl (6.3-8.2)
[2025-01-24 16:21] LABS: Blood Urea Nitrogen 30 mg/dl (9-20); Creatinine Clearance Estimated 57 mL/min (50-200); Creatinine,Serum 1.90 mg/dl (0.66-1.25); Estimated Glomerular Filt Rate 36 ml/min (>60); GFR (African American) 43 ML/MIN (>60)
[2025-01-24 16:32] LABS: Troponin I < 0.01 ng/ml (0.00-0.034)
--- NOTE | 2025-01-24 17:26 | PC.NURSE ---
HOUSE AWARE OF ADMISSION
--- NOTE | 2025-01-24 17:42 | PC.NURSE ---
REPORT CALLED TO STAN ARGUETA
--- NOTE | 2025-01-24 18:57 | P.HP_ITS ---
<Statement entered by Solo Byrd MD - 01/25/25 15:02> Rounded on patient after nurse practitioner. Personally examined and interviewed patient. Agree with exam findings and care plan as documented. History of Present Illness *Admission Date: 01/24/25 *Reason for visit:: Shortness of breath *History of present illness: This is a 69-year-old male who has a past medical history significant for diastolic dysfunction congestive heart failure, tricuspid regurgitation, mitral valve regurgitation, former smoker, pulmonary emphysema, COPD, hyperlipidemia, hypertensive heart disease, and coronary artery disease who presents with a chief complaint of shortness of air. Due to patient symptomology, he presented to his primary care's office for evaluation and was found to be significantly hypoxic. Patient was transition to the emergency room via EMS. While in the emergency room, patient's room air saturation was in the 80 percentile, so he was placed on supplemental oxygen. Plain films of the chest per my read shows a right lower lobe pneumonia. As result of these findings, hospital medicine was consulted for further management. During my evaluation of the patient, patient states his symptomology started around Tuesday/Tuesday. He reports having a cough with productive yellow sputum. He states that his shortness of breath progressively got worse. He was experiencing dyspnea with exertion and difficulty laying flat. He states he presented to his PCP where they found him to be hypoxic and he transition to the emergency room for further management. Patient states he was a former smoker and stopped approximately 3 years ago. After losing his job and taking a pay cut, patient states he had 1 cigarette approximately 1 month ago but did not resume his heavy smoking from the past. Patient mentions that he has obstructive sleep apnea and wears CPAP at night. He is currently denying any chest pain, lightheadedness, dizziness, fever, chills, rigors, nausea, vomiting, PND, orthopnea, or diarrhea. Additional pertinent vitals obtained include a white blood cell count of 20.7, red blood cell count of 4.28, hemoglobin 13.4, hematocrit 40.2, neutrophils 88.5%, chloride of 96, carbon oxide of 34, BUN of 30, creatinine 1.90, GFR 36, and blood glucose 122. It is worth mentioning that patient is normally not home O2 dependent. [facility] Disclaimer: The information contained in this section may have been updated after the patient was seen, as this information can be updated by other users. Medical History Diastolic dysfunction Tricuspid regurgitation Mitral regurgitation Encounter for Department of Transportation (DOT) examination for driving license renewal Neoplasm of thyroid History of thyroidectomy Encounter for pre-operative cardiovascular clearance History of smoking 30 or more pack years Lung nodule Pulmonary emphysema Dyspnea on exertion Normal colonoscopy Hoarseness Change in voice Ex-smoker for less than 1 year Dyspnea Chest pain Smoker HLD (hyperlipidemia) HHD (hypertensive heart disease) CAD (coronary artery disease) Surgical History History of thyroid surgery History of colonoscopy H/O heart artery stent Family History Father Coronary artery disease Social History Smoking Status: Former smoker tobacco type: cigarettes packs per day: 1 second hand exposure: No alcohol intake: never substance use type: former substance user, marijuana, crack/cocaine and methamphetamine current occupational status: employed Travel in the last 8 weeks?: None household members: significant other housing: house marital status: single current occupational exposures/hazards: No caffeine: Yes Have you lived/traveled outside [place] in past 30 days?: No Contact w/someone who lives/traveled outside US past 30 days?: No Exposure to someone with infectious disease in past 14 days?: No Do you have a fever (greater than 100.4 F or 38 C)?: No Have you tested positive for COVID-19?: No Exposed to someone with COVID-19 in past 14 days?: No Do you have a sore throat?: No Do you have a cough?: No Do you have any weakness?: No Do you have any diarrhea?: No Are you experiencing any unusual bleeding?: No Do you have any muscle aches/pain?: No Do you have any abdominal pain?: No Are you experiencing loss of taste or smell?: No Other Medical History Have you received the Flu Vaccine for this season: No Have you received the Pneumonia Vaccine: Yes Review of Systems Review of Systems Review of systems:: pertinent systems reviewed and negative unless documented below Constitutional Constitutional: Reports system reviewed and no additional complaints, except as documented Eyes Eyes: Reports system reviewed and no additional complaints, except as documented ENT Ears, Nose, Mouth, and Throat: Reports system reviewed and no additional c omplaints, except as documented *Cardiovascular Cardiovascular: Reports dyspnea and Reports dyspnea on exertion *Respiratory Respiratory: Reports dyspnea and Reports dyspnea on exertion *Gastrointestinal Gastrointestinal: Reports system reviewed and no additional complaints, except as documented *Genitourinary Genitourinary: Reports system reviewed and no additional complaints, except as documented *Musculoskeletal Musculoskeletal: Reports system reviewed and no additional complaints, except as documented Integumentary/Breasts Skin/Breast: Reports system reviewed and no additional complaints, except as documented *Neurologic Neurologic: Reports system reviewed and no additional complaints, except as documented Psychiatric Psychiatric: Reports system reviewed and no additional complaints, except as documented Endocrine Endocrine: Reports system reviewed and no additional complaints, except as documented Hematologic/Lymphatic Hematologic/Lymphatic: Reports system reviewed and no additional complaints, except as documented Allergic/Immunologic Allergic/Immunologic: Reports system reviewed and no additional complaints, except as documented Meds Home Medications and Allergies Home Medications ?Medication ?Instructions ?Recorded ?Confirmed ?Type nitroglycerin 0.4 mg sublingual 0.4 mg sublingual Q5-1 5M PRN chest 09/30/20 01/24/25 Rx tablet pain #25 tabs docusate sodium 50 mg capsule 50 mg PO DAILY 01/18/22 01/24/25 History (Stool Softener) multivitamin,[id number] 1 tab PO DAILY VITAMIN 0 01/18/22 01/24/25 History acetaminophen 500 mg tablet 500 mg PO Q6H PRN Pain 04/2401/24/25 History (Tylenol Extra Strength) bupropion HCl 150 mg tablet,12 hr 150 mg PO TID PRN SM OKING 12/27/23 01/24/25 Rx sustained-release CESSATION 90 days #90 ea fenofibrate nanocrystallized 48 mg See Rx Instructions .Route 04/30/24 01/24/25 Rx tablet .COMPLEX #180 tabs montelukast 10 mg tablet See Rx Instructions .Route 1 01/24/25 Rx .COMPLEX #90 tabs amlodipine 10 mg tablet 10 mg PO DAILY 90 days #90 t abs 05/16/24 01/24/25 Rx aspirin 81 mg tablet,delayed 81 mg PO DAILY Blood thin ner 90 05/16/24 01/24/25 Rx release (Adult Low Dose Aspirin) days #90 tabs atorvastatin 80 mg tablet 80 mg PO DAILY Cholesterol # 90 tabs 05/16/24 01/24/25 Rx carvedilol 12.5 mg tablet (Coreg) 12.5 mg PO BID 90 da ys #180 tabs 05/16/24 01/24/25 Rx ezetimibe 10 mg tablet (Zetia) 10 mg PO DAILY #90 tabs 05/16/24 01/24/25 Rx isosorbide mononitrate 30 mg 30 mg PO DAILY Hypertensi on 90 05/16/24 01/24/25 Rx tablet,extended release 24 hr days #90 tabs losartan 100 mg tablet 100 mg PO DAILY Hypertension 90 05/16/24 01/24/25 Rx days #90 tabs pantoprazole 40 mg tablet,delayed 40 mg PO DAILY #90 t abs 05/16/24 01/24/25 Rx release levothyroxine 100 mcg tablet 100 mcg PO DAILY #90 tabs 08/13/24 01/24/25 Rx hydroxyzine HCl 25 mg tablet 25 mg PO TID PRN anxiety 90 days 10/12/24 01/24/25 Rx #270 tabs levothyroxine 200 mcg tablet 200 mcg PO DAILY #90 tabs 11/12/24 01/24/25 Rx meclizine 25 mg tablet 25 mg PO HS dizziness #30 ta bs 11/12/24 01/24/25 Rx albuterol sulfate 90 mcg/actuation 2 puff inhalation Q 6H PRN 12/24/24 01/24/25 Rx aerosol inhaler (ProAir HFA) shortness of breath or wh eezing #8.5 grams fluticasone 100 mcg-salmeterol 50 1 inh inhalation BID 90 days #60 ea 12/24/24 01/24/25 Rx mcg/dose blistr powdr for inhalation (Advair Diskus) New Prescriptions to Start Prescriptions: Allergies Allergy/AdvReac Type Severity Reaction Status Date / Time No Known Allergies Allergy Verified 01/24/25 13:48 Exam Data for Last 24 hours Vital signs and Labs for Last 24 Hours: Temp Pulse Resp BP Pulse Ox O2 Del Method O2 Flow Rate 98.1 F 94 H 18 141/59 H 90 L Nasal Cannula 3 01/24/25 18:01/24/25 18:01/24/25 18:01 01/24/25 18:01 01/24/25 18:01 01/24/25 18:01 01/24/25 18:01 Laboratory Results - last 24 hr 01/24/25 14:50: WBC 20.7 H*, RBC 4.28 L, Hgb 13.4 L, Hct 40.2 L, MCV 93.9, MCH 31.3 H, MCHC 33.3, RDW 17.3, Plt Count 213, MPV 12.1 H, Neut % (Auto) 88.5 H, Lymph % (Auto) 4.2 L, [place] % (Auto) 6.6, Eos % (Auto) 0.0 L, Baso % (Auto) 0.3, Neut # (Auto) 18.3 H, Lymph # (Auto) 0.9, [place] # (Auto) 1.4 H, Eos # (Auto) 0.0, Baso # (Auto) 0.1 01/24/25 14:56: VBG pH 7.47 H, VBG pCO2 36.6, VBG pO2 57.3 H, VBG HCO3 26.1, VBG Total CO2 27.2 H, VBG O2 Saturation 92.3 H, VBG Base Excess 2.4 H, VBG Lactic Acid 2.0 01/24/25 15:15: SARS-CoV-2 (PCR) Not detected, Influenza A Untype (PCR) Not detected, Influenza Type B (PCR) Not detected 01/24/25 15:30: Sodium 140, Potassium 3.9, Chloride 96 L, Carbon Dioxide 34 H, Anion Gap 13.9, BUN 30 H, Creatinine 1.90 H, Estimated Creat Clear 57, Estimated GFR 36 L, Est GFR ( Amer) 43 L, Glucose 122 H, Calcium 9.3, Total Bilirubin 0.9, AST 55, ALT 40, Alkaline Phosphatase 53, Troponin I < 0.01, Total Protein 7.5, Albumin 4.1, Globulin 3.4 H, Albumin/Globulin Ratio 1.2 I & O for Last 24 hours: Intake & Output 01/21/25 01/22/25 01/23/25 01/24/25 23:59 23:59 23:59 23:59 Intake Total 350 / 350 Balance 350 / 350 Weight 105.324 kg Constitutional Constitutional: no acute distress, obese and cooperative *Routine HEENT Exam Head: Present normocephalic and atraumatic Eye: Present EOMI and PERRL ENT: Present mucous membranes moist *Routine Neck Exam Neck: Present supple, full ROM and trachea midline *Routine Respiratory Exam Respiratory: Present decreased breath sounds, rhonchi and diminished air movement *Routine Cardiovascular Exam Cardiovascular: Present RRR, Normal S1 and Normal S2 *Routine Abdominal Exam Abdominal: Present soft, normoactive bowel sounds and obese *Routine Rectal Exam Rectal:: deferred *Routine Genitalia Exam Genitalia:: deferred *Routine Extremities Exam Extremities: Present full ROM, pulses intact and normal capillary refill Routine Back/Spine/Pelvis Exam Back/Spine: Present full ROM *Routine Skin Exam Skin: Present intact, dry, warm and normal turgor *Routine Neurological Exam Neurological: Present alert, oriented X3, CN II-XII intact, moving all extremities and normal speech Routine Psychiatric Exam Psychiatric: Present normal affect, normal thought process, cooperative, good insight and good judgment H&P: Result Impressions 69-year-old male who has a history of being a former smoker and presents with a long duration of progressively worsening shortness of breath found to be acutely hypoxic at his PCP office. Patient presents to the emergency room was noted to have community-acquired pneumonia with COPD exacerbation. Assessment and Plan *Assessment and plan (1) Pneumonia: Status: Acute Qualifiers: Laterality: right Lung location: lower lobe of lung Pneumonia type: due to unspecified organism Qualified Code(s): J18.9 - Pneumonia, unspecified organism Category: Medical Code(s): J18.9 - Pneumonia, unspecified organism (2) Acute hypoxic respiratory failure: Status: Acute Category: Medical Code(s): J96.01 - Acute respiratory failure with hypoxia (3) Leukocytosis: Status: Acute Qualifiers: Leukocytosis type: unspecified Qualified Code(s): D72.829 - Elevated white blood cell count, unspecified Category: Medical Code(s): D72.829 - Elevated white blood cell count, unspecified (4) Acute kidney injury superimposed on chronic kidney disease: Status: Acute Category: Medical Code(s): N17.9 - Acute kidney failure, unspecified; N18.9 - Chronic kidney disease, unspecified (5) COPD exacerbation: Status: Acute Category: Medical Code(s): J44.1 - Chronic obstructive pulmonary disease with (acute) exacerbation (6) Severe sleep apnea: Problem Comment: Severe NAEL, nocturnal hypoxemia. Excellent compliance on AutoPap with oxygen supplementation. Recent CPAP titration with good response to CPAP 17 cm but unable to tolerate optimal pressure. He did not qualify for O2 supplementation during recent titration. Overnight oximetry on CPAP 17 cm shows significant nocturnal hypoxemia but compliance is compromised and he has significant pressure leakage throughout the night. Status: Chronic Category: Medical Code(s): G47.30 - Sleep apnea, unspecified Plan Assessment: Community-acquired pneumonia: Most likely bacterial Acute hypoxic respiratory failure Leukocytosis COPD exacerbation Obstructive sleep apnea - Will continue 1 g Rocephin IV daily and 250 mg of azithromycin p.o. daily - 600 mg of guaifenesin p.o. twice daily - Supplemental oxygen to maintain oxygen saturation greater than 94% - Patient may benefit from home nebulizer - The goal will be to wean oxygen until patient is independent-if we are unable to achieve this goal we will evaluate the need for home O2 - 10 mg of Singulair p.o. daily - Will continue patient's CPAP at at bedtime - Blood cultures x 2 - Sputum for culture - 0.5 mg of budesonide twice daily - DuoNebs every 6 hours Acute on chronic renal impairment - Patient's baseline creatinine is 1.2-of 1.5 - Will monitor patient's creatinine daily - Will encourage p.o. intake - If patient's creatinine does not improve or if it worsens, will obtain urine studies along with renal ultrasound Plan: Admit patient to the [facility] unit Saline lock Activity as tolerated Cardiac diet CBC/BMP daily 5000 units of heparin SQ 3 times daily 5 mg [place] p.o. every 4 hours as needed moderate pain 2 mg morphine IV push every 4 hours as needed severe pain 4 mg of Zofran IV push every 8 hours pain as above Full code I have discussed this case with attending physician Dr. Alonso and I look forward to more input
--- NOTE | 2025-01-24 22:02 | PC.NURSE ---
patient refused PM medications - educated on what each medication does and how it will help him and patient stated ill just take them tomorrow . patient educated that the steroids can go through his IV and he doesn't have to swallow, still refused.
[2025-01-24] MEDS: IPRATROPIUM/ALBUTEROL 3 ML NEB IH (23:00)
[2025-01-25] VITALS (13 sets, daily range): BP systolic 122–153; BP diastolic 61–74; PULSE 72–88; RESP 12–22; TEMP 36.3–36.9; O2SAT 90–96; BMI 34.6
--- NOTE | 2025-01-25 01:14 | PC.NURSE ---
report handed off to Casimiro Ely RN
[2025-01-25] MEDS: IPRATROPIUM/ALBUTEROL 3 ML NEB IH ×3 (06:10→18:24)
[2025-01-25] MEDS: BUDESONIDE 0.5MG/2ML NEB 0.5 MG IH ×2 (06:10→18:24)
[2025-01-25 06:14] LABS: Hematocrit 36.0 % (42.0-52.0); Immature Granulocytes % 1.1 %; Mean Corpuscular HGB Conc 31.7 g/dL (31.8-35.4); Mean Corpuscular Hemoglobin 31.0 pg (27.0-31.2); Mean Corpuscular Volume 97.8 fl (80-94); Nucleated Red Blood Cells % 0 %; Platelet Count 312 K/mm3 (142-424); Red Blood Count 3.68 M/mm3 (4.60-6.20); Red Cell Distribution Width-SD 52.0 fL; White Blood Count 20.6 K/mm3 (4.8-10.8)
[2025-01-25 06:20] LABS: Anion Gap 10.2 mEq/L (5-15); Blood Urea Nitrogen 36 mg/dl (9-20); Calcium 8.5 mg/dl (8.4-10.2); Carbon Dioxide 33 mmol/L (22.0-30.0); Chloride 100 mmol/L (98-107); Creatinine Clearance Estimated 51 mL/min (50-200); Creatinine,Serum 2.10 mg/dl (0.66-1.25); Estimated Glomerular Filt Rate 32 ml/min (>60); GFR (African American) 38 ML/MIN (>60); Glucose 155 mg/dl (74-100); Potassium 4.2 mmoL/L (3.5-5.1); Sodium 139 mmol/L (136-145)
[2025-01-25 06:24] LABS: Hemoglobin 11.4 g/dL (14.1-18.0)
--- NOTE | 2025-01-25 07:47 | EXP.ACUTE.PN ---
Subjective *Date: 01/25/25 *Time: 15:23 Interval history: Still quite short of breath today. Wore his home CPAP overnight. Denies chest pain. Still quite fatigued. Desats quickly when oxygen removed. On 3 L nasal cannula oxygen on morning rounds. Ill-appearing Medical Exam Vital signs and Labs for Last 24 Hours: Vital Signs Temp Pulse Pulse Resp BP BP Pulse Ox 01/25/25 06:34 01/25/25 06:10 79 01/25/25 06:10 82 01/25/25 06:10 91 L 01/25/25 05:00 01/25/25 04:00 97.9 F 73 12 122/67 96 01/25/25 03:00 01/25/25 02:00 01/25/25 00:55 01/24/25 23:01 77 01/24/25 23:01 77 01/24/25 23:01 01/24/25 23:00 01/24/25 21:02 94 L 01/24/25 21:00 01/24/25 20:45 94 L 01/24/25 20:45 01/24/25 20:00 92 L 01/24/25 19:56 98.6 F 93 H 12 143/64 H 92 L 01/24/25 19:00 01/24/25 18:01 98.1 F 94 H 18 141/59 H 90 L 01/24/25 17:43 98.9 F 86 20 152/75 H 01/24/25 17:34 01/24/25 17:31 88 18 154/76 H 91 L 01/24/25 17:00 87 176/74 H 92 L 01/24/25 16:30 87 154/73 H 91 L 01/24/25 16:00 89 20 156/76 H 94 L 01/24/25 15:32 90 20 164/72 H 94 L 01/24/25 15:28 83 01/24/25 15:28 87 01/24/25 15:28 93 L 01/24/25 15:00 89 18 162/70 H 94 L 01/24/25 14:44 91 L 01/24/25 14:44 99.8 F H 91 H 22 159/69 H 91 L O2 Del Method O2 Flow Rate FiO2 01/25/25 06:34 CPAP 01/25/25 06:10 01/25/25 06:10 01/25/25 06:10 Nasal Cannula 3 01/25/25 05:00 CPAP 01/25/25 04:00 BiPAP 01/25/25 03:00 CPAP 01/25/25 02:00 35 01/25/25 00:55 BiPAP 01/24/25 23:01 01/24/25 23:01 01/24/25 23:01 35 01/24/25 23:00 BiPAP 01/24/25 21:02 BiPAP 35 01/24/25 21:00 BiPAP 01/24/25 20:45 Nasal Cannula 3 01/24/25 20:45 35 01/24/25 20:00 Nasal Cannula 3 01/24/25 19:56 Nasal Cannula 3 01/24/25 19:00 Nasal Cannula 3 01/24/25 18:01 Nasal Cannula 3 01/24/25 17:43 Nasal Cannula 3 01/24/25 17:34 Nasal Cannula 3 01/24/25 17:31 Nasal Cannula 3 01/24/25 17:00 Nasal Cannula 4 01/24/25 16:30 Nasal Cannula 4 01/24/25 16:00 Nasal Cannula 3 01/24/25 15:32 Nasal Cannula 3 01/24/25 15:28 01/24/25 15:28 01/24/25 15:28 Nasal Cannula 3 01/24/25 15:00 Nasal Cannula 3 01/24/25 14:44 Nasal Cannula 4 01/24/25 14:44 Nasal Cannula 4 Intake and Output 01/24/25 01/24/25 01/25/25 15:59 23:59 07:59 Intake Total 50 / 470 420 / 470 Balance 50 / 470 420 / 470 Intake: Intake, Oral Amount 120 / 120 Intake, Total IV Amount 50 / 350 300 / 350 Azithromycin 500 mg In 0.9 % 250 / 250 Sodium Chloride 250 ml @ 250 mls/hr IV ONCE ONE Rx#:[id number] Ceftriaxone 1 gm 1 gm In 0.9 % 50 / 50 Sodium Chloride 50 ml @ 100 mls /hr IV ONCE ONE Rx#:[id number] Magnesium Sulfate in Water 2 gm 50 / 50 In 50 ml @ 50 mls/hr IV ONCE ONE Rx#:[id number] Other: Weight 107.048 kg 105.324 kg 106.005 kg Patient Weight 01/25/25 23:59 Weight 106.005 kg Laboratory Results - last 24 hr 01/24/25 14:50: WBC 20.7 H*, RBC 4.28 L, Hgb 13.4 L, Hct 40.2 L, MCV 93.9, MCH 31.3 H, MCHC 33.3, RDW 17.3, Plt Count 213, MPV 12.1 H, Neut % (Auto) 88.5 H, Lymph % (Auto) 4.2 L, [place] % (Auto) 6.6, Eos % (Auto) 0.0 L, Baso % (Auto) 0.3, Neut # (Auto) 18.3 H, Lymph # (Auto) 0.9, [place] # (Auto) 1.4 H, Eos # (Auto) 0.0, Baso # (Auto) 0.1 01/24/25 14:56: VBG pH 7.47 H, VBG pCO2 36.6, VBG pO2 57.3 H, VBG HCO3 26.1, VBG Total CO2 27.2 H, VBG O2 Saturation 92.3 H, VBG Base Excess 2.4 H, VBG Lactic Acid 2.0 01/24/25 15:15: SARS-CoV-2 (PCR) Not detected, Influenza A Untype (PCR) Not detected, Influenza Type B (PCR) Not detected 01/24/25 15:30: Sodium 140, Potassium 3.9, Chloride 96 L, Carbon Dioxide 34 H, Anion Gap 13.9, BUN 30 H, Creatinine 1.90 H, Estimated Creat Clear 57, Estimated GFR 36 L, Est GFR ( Amer) 43 L, Glucose 122 H, Calcium 9.3, Total Bilirubin 0.9, AST 55, ALT 40, Alkaline Phosphatase 53, Troponin I < 0.01, Total Protein 7.5, Albumin 4.1, Globulin 3.4 H, Albumin/Globulin Ratio 1.2 01/25/25 05:48: WBC 20.6 H*, RBC 3.68 L, Hgb 11.4 L D, Hct 36.0 L, MCV 97.8 H, MCH 31.0, MCHC 31.7 L, RDW 14.4, Plt Count 312 D, MPV 10.0, Neut % (Auto) 92.0 H, Lymph % (Auto) 3.3 L, [place] % (Auto) 3.5, Eos % (Auto) 0.0 L, Baso % (Auto) 0.1, Neut # (Auto) 18.9 H, Lymph # (Auto) 0.7, [place] # (Auto) 0.7, Eos # (Auto) 0.0, Baso # (Auto) 0.0, Sodium 139, Potassium 4.2, Chloride 100, Carbon Dioxide 33 H, Anion Gap 10.2, BUN 36 H, Creatinine 2.10 H, Estimated Creat Clear 51, Estimated GFR 32 L, Est GFR ( Amer) 38 L, Glucose 155 H D, Calcium 8.5 I & O for Labs for Last 24 Hours: Intake & Output 01/22/25 01/23/25 01/24/25 01/25/25 23:59 23:59 23:59 23:59 Intake Total 470 / 470 Balance 470 / 470 Weight 105.324 kg 106.005 kg Microbiology Reports for the Last 24 Hours: Microbiology 01/24/25 14:41 Sputum - Expectorated Sputum Gram Stain - Final 01/24/25 14:41 Sputum - Expectorated Sputum Sputum Culture - Final Constitutional: Present mild distress, obese, chronically ill appearing and cooperative Head: Present atraumatic and normocephalic Respiratory: Present accessory muscle use, prolonged expiratory phase, wheezes and crackles Cardiac: Present Reg Rate and Rhythm GI: Present soft, distention and normal bowel sounds; Absent tenderness or guarding Extremities: Present normal inspection and full ROM Skin: Present intact; Absent erythema Neuro: Present Grossly Intact, alert, awake, oriented x 3 and moves all extremities Assessment and Plan *Assessment and plan (1) Pneumonia: Status: Acute Qualifiers: Laterality: right Lung location: lower lobe of lung Pneumonia type: due to unspecified organism Qualified Code(s): J18.9 - Pneumonia, unspecified organism Category: Medical Code(s): J18.9 - Pneumonia, unspecified organism (2) Acute hypoxic respiratory failure: Status: Acute Category: Medical Code(s): J96.01 - Acute respiratory failure with hypoxia (3) Leukocytosis: Status: Acute Qualifiers: Leukocytosis type: unspecified Qualified Code(s): D72.829 - Elevated white blood cell count, unspecified Category: Medical Code(s): D72.829 - Elevated white blood cell count, unspecified (4) Acute kidney injury superimposed on chronic kidney disease: Status: Acute Category: Medical Code(s): N17.9 - Acute kidney failure, unspecified; N18.9 - Chronic kidney disease, unspecified (5) COPD exacerbation: Status: Acute Category: Medical Code(s): J44.1 - Chronic obstructive pulmonary disease with (acute) exacerbation (6) Severe sleep apnea: Problem Comment: Severe NAEL, nocturnal hypoxemia. Excellent compliance on AutoPap with oxygen supplementation. Recent CPAP titration with good response to CPAP 17 cm but unable to tolerate optimal pressure. He did not qualify for O2 supplementation during recent titration. Overnight oximetry on CPAP 17 cm shows significant nocturnal hypoxemia but compliance is compromised and he has significant pressure leakage throughout the night. Status: Chronic Category: Medical Code(s): G47.30 - Sleep apnea, unspecified (7) NAEL on CPAP: Status: Chronic Category: Medical Code(s): G47.33 - Obstructive sleep apnea (adult) (pediatric) (8) Obesity (BMI 30.0-34.9): Status: Chronic Category: Medical Code(s): E66.811 - Obesity, class 1 Plan 69-year-old male with sleep apnea and COPD, presented with shortness of breath. No oxygen requirement. Case discussed with ER physician, request admission. Medicine admitted for further management of cute hypoxemic respiratory failure with community-acquired pneumonia and right basilar lung field. Continues to require patient management due to oxygen requirement and severity of illness. Problems addressed as follows: Community-acquired pneumonia, present on admission, suspect bacterial Acute hypoxic respiratory failure, present on admission Leukocytosis COPD exacerbation Obstructive sleep apnea - Will continue 1 g Rocephin IV daily and 250 mg of azithromycin p.o. daily - 600 mg of guaifenesin p.o. twice daily - 10 mg of Singulair p.o. daily Discussed case with pulmonology, continue ceftriaxone and azithromycin for community-acquired pneumonia. Recommend weaning to cefdinir at discharge to complete 5 days of therapy. - Continue DuoNebs every 6 hours along with Pulmicort twice daily. Transition to Advair 500 upon discharge and DuoNebs as needed 4 times a day - Goal sats greater 90%. Continue supplemental oxygen. Currently on 3 L. Will pursue 6-minute walk test prior to discharge. -Continue to monitor blood and sputum cultures. - White count elevated at 20.6. Hemoglobin 11.4. Repeat CBC, CMP, magnesium ordered for the morning Acute kidney injury CKD 3 - Baseline creatinine approximately 1.4. Creatinine elevated at 2.1 this morning. BUN 36. Potassium 4.2. - If patient's creatinine does not improve or if it worsens, will obtain urine studies along with renal ultrasound Hypertension Hyperlipidemia - Blood pressure within normal range at this time; continue carvedilol 12.5 mg twice daily. - Hold amlodipine, hold isosorbide, hold ARB - Holding fenofibrate and statin in the setting of acute illness Hypothyroid: TSH 2 in October. Resume levothyroxine 300 mcg daily GERD: Continue pantoprazole 40 mg daily Full code Cardiac diet Heparin subcu 5000 units 3 times daily
--- NOTE | 2025-01-25 07:48 | HMH.PHAINT1 ---
Pharmacy Intervention Comments: home medication list verified using list from outpatient pharmacy
[2025-01-25] MEDS: CEFTRIAXONE 1 GM 1 GM in 0.9 % SODIUM CHLORIDE 50 ML IV (08:54)
[2025-01-25] MEDS: METHYLPREDNISOLONE SOD SUCC 40MG VIAL 40 MG IV ×2 (08:54→20:48)
[2025-01-25] MEDS: HEPARIN SODIUM 5,000 UNIT/ML VIAL 5000 UNIT SUBCUT ×3 (08:54→20:48)
[2025-01-25] MEDS: AZITHROMYCIN 250MG TABLET 250 MG PO (08:54)
[2025-01-25] MEDS: guaiFENesin 600 MG TAB.ER.12H PO ×2 (08:54→20:49)
--- NOTE | 2025-01-25 12:56 | EXP.PULM.CON ---
History of Present Illness History of present illness: Mr. Sandoval is 69-year-old male greater than [id number] smoking history used to smoke 1 to greater than 1 pack a day stopped IV smoking around 2021 since then has been intermittently smoking presented to the ER with worsening respiratory status cough worsening productive phlegm subjective chills and fevers admitted to the hospital found to have airspace disease and pulmonary was called for further evaluation and management. [facility] Disclaimer: The information contained in this section may have been updated after the patient was seen, as this information can be updated by other users. Medical History Diastolic dysfunction Tricuspid regurgitation Mitral regurgitation Encounter for Department of Transportation (DOT) examination for driving license renewal Neoplasm of thyroid History of thyroidectomy Encounter for pre-operative cardiovascular clearance History of smoking 30 or more pack years Lung nodule Pulmonary emphysema Dyspnea on exertion Normal colonoscopy Hoarseness Change in voice Ex-smoker for less than 1 year Dyspnea Chest pain Smoker HLD (hyperlipidemia) HHD (hypertensive heart disease) CAD (coronary artery disease) Surgical History History of thyroid surgery History of colonoscopy H/O heart artery stent Family History Father Coronary artery disease Social History Smoking Status: Former smoker tobacco type: cigarettes packs per day: 1 second hand exposure: No alcohol intake: never substance use type: former substance user, marijuana, crack/cocaine and methamphetamine current occupational status: employed Travel in the last 8 weeks?: None household members: significant other housing: house marital status: single current occupational exposures/hazards: No caffeine: Yes Have you lived/traveled outside [place] in past 30 days?: No Contact w/someone who lives/traveled outside [place] past 30 days?: No Exposure to someone with infectious disease in past 14 days?: No Do you have a fever (greater than 100.4 F or 38 C)?: No Have you tested positive for COVID-19?: No Exposed to someone with COVID-19 in past 14 days?: No Do you have a sore throat?: No Do you have a cough?: No Do you have any weakness?: No Do you have any diarrhea?: No Are you experiencing any unusual bleeding?: No Do you have any muscle aches/pain?: No Do you have any abdominal pain?: No Are you experiencing loss of taste or smell?: No Review of Systems Constitutional Constitutional: Reports anorexia, Reports body ache(s), Reports fatigue, Reports fever(s) and Reports snoring Eyes Eyes: Denies eye discharge, Denies dry eyes, Denies irritation and Denies itchy eyes ENT Ears, Nose, Mouth, and Throat: Denies epistaxis, Denies facial pain, Denies lip swelling and Denies throat swelling *Cardiovascular Cardiovascular: Reports dyspnea and Reports dyspnea on exertion *Respiratory Respiratory: Reports change in phlegm color, Reports chest congestion, Reports cough, Reports dyspnea, Reports dyspnea on exertion, Reports excessive phlegm production, Denies hemoptysis, Denies pain on inspiration, Denies pain with cough, Reports snoring and Reports wheezing *Gastrointestinal Gastrointestinal: Denies abdominal pain, Denies belching and Denies cramping *Musculoskeletal Musculoskeletal: Reports back pain, Reports myalgias and Reports other (No small joint swelling or Pain) *Neurologic Neurologic: Reports system reviewed and no additional complaints, except as documented Psychiatric Psychiatric: Denies homicidal ideation and Denies suicidal ideation Endocrine Endocrine: Reports fatigue and Denies heat intolerance Hematologic/Lymphatic Hematologic/Lymphatic: Denies easy bleeding and Denies lymphadenopathy Allergic/Immunologic Allergic/Immunologic: Denies itchy eyes, Denies lip swelling, Denies throat swelling and Reports wheezing Pulmonology Exam Inpatient Vital signs and Labs for Last 24 Hours: Temp Pulse Resp BP Pulse Ox O2 Del Method O2 Flow Rate 97.4 F L 83 18 136/61 91 L Nasal Cannula 3 01/25/25 12:00 01/25/25 12:00 01/25/25 12:00 01/25/25 12:00 01/25/25 12:00 01/25/25 12:00 01/25/25 12:00 FiO2 35 01/25/25 02:00 Laboratory Results - last 24 hr 01/24/25 14:50: WBC 20.7 H*, RBC 4.28 L, Hgb 13.4 L, Hct 40.2 L, MCV 93.9, MCH 31.3 H, MCHC 33.3, RDW 17.3, Plt Count 213, MPV 12.1 H, Neut % (Auto) 88.5 H, Lymph % (Auto) 4.2 L, [place] % (Auto) 6.6, Eos % (Auto) 0.0 L, Baso % (Auto) 0.3, Neut # (Auto) 18.3 H, Lymph # (Auto) 0.9, [place] # (Auto) 1.4 H, Eos # (Auto) 0.0, Baso # (Auto) 0.1 01/24/25 14:56: VBG pH 7.47 H, VBG pCO2 36.6, VBG pO2 57.3 H, VBG HCO3 26.1, VBG Total CO2 27.2 H, VBG O2 Saturation 92.3 H, VBG Base Excess 2.4 H, VBG Lactic Acid 2.0 01/24/25 15:15: SARS-CoV-2 (PCR) Not detected, Influenza A Untype (PCR) Not detected, Influenza Type B (PCR) Not detected 01/24/25 15:30: Sodium 140, Potassium 3.9, Chloride 96 L, Carbon Dioxide 34 H, Anion Gap 13.9, BUN 30 H, Creatinine 1.90 H, Estimated Creat Clear 57, Estimated GFR 36 L, Est GFR ( Amer) 43 L, Glucose 122 H, Calcium 9.3, Total Bilirubin 0.9, AST 55, ALT 40, Alkaline Phosphatase 53, Troponin I < 0.01, Total Protein 7.5, Albumin 4.1, Globulin 3.4 H, Albumin/Globulin Ratio 1.2 01/25/25 05:48: WBC 20.6 H*, RBC 3.68 L, Hgb 11.4 L D, Hct 36.0 L, MCV 97.8 H, MCH 31.0, MCHC 31.7 L, RDW 14.4, Plt Count 312 D, MPV 10.0, Neut % (Auto) 92.0 H, Lymph % (Auto) 3.3 L, [place] % (Auto) 3.5, Eos % (Auto) 0.0 L, Baso % (Auto) 0.1, Neut # (Auto) 18.9 H, Lymph # (Auto) 0.7, [place] # (Auto) 0.7, Eos # (Auto) 0.0, Baso # (Auto) 0.0, Sodium 139, Potassium 4.2, Chloride 100, Carbon Dioxide 33 H, Anion Gap 10.2, BUN 36 H, Creatinine 2.10 H, Estimated Creat Clear 51, Estimated GFR 32 L, Est GFR ( Amer) 38 L, Glucose 155 H D, Calcium 8.5 I & O for Labs for Last 24 Hours: Intake & Output 01/22/25 01/23/25 01/24/25 01/25/25 23:59 23:59 23:59 23:59 Intake Total 470 / 470 210 / 210 Output Total 0 / 0 Balance 470 / 470 210 / 210 Weight 232 lb 3.2 oz 233 lb 11.2 oz Microbiology Reports for the Last 24 Hours: Microbiology 01/24/25 14:41 Sputum - Expectorated Sputum Gram Stain - Final 01/24/25 14:41 Sputum - Expectorated Sputum Sputum Culture - Final Constitutional: Present moderate distress Head: Present normocephalic and atraumatic ENT: Present normal exam, normal oropharynx and mucous membranes moist Neck: Present normal inspection and full ROM Respiratory: Present prolonged expiratory phase, respiratory distress, wheezes and able to speak in complete sentences Cardiac: Present S1/S2, Tachycardia and radial pulses present GI: Present soft and distention; Absent tenderness or guarding Skin: Present intact; Absent cyanosis or jaundice Neuro: Present alert, awake and oriented x 3 Extremities: Present normal inspection; Absent clubbing or cyanosis Psychiatric: Present normal affect and cooperative Meds Home Medications and Allergies Home Medications ?Medication ?Instructions ?Recorded ?Confirmed ?Type nitroglycerin 0.4 mg sublingual 0.4 mg sublingual Q5-15M PRN chest 09/30/20 01/24/25 Rx tablet pain #25 tabs docusate sodium 50 mg capsule 50 mg PO DAILY 01/18/22 01/24/25 History (Stool Softener) acetaminophen 500 mg tablet 500 mg PO Q6H PRN Pain 06/13/23 01/24/25 History (Tylenol Extra Strength) amlodipine 10 mg tablet 10 mg PO DAILY 90 days #90 tabs 05/16/24 01/24/25 Rx aspirin 81 mg tablet,delayed 81 mg PO DAILY Blood thinner 90 05/16/24 01/24/25 Rx release (Adult Low Dose Aspirin) days #90 tabs atorvastatin 80 mg tablet 80 mg PO DAILY Cholesterol #90 tabs 05/16/24 01/24/25 Rx carvedilol 12.5 mg tablet (Coreg) 12.5 mg PO BID 90 days #180 tabs 05/16/24 01/24/25 Rx ezetimibe 10 mg tablet (Zetia) 10 mg PO DAILY #90 tabs 05/16/24 01/24/25 Rx isosorbide mononitrate 30 mg 30 mg PO DAILY Hypertension 90 05/16/24 01/24/25 Rx tablet,extended release 24 hr days #90 tabs pantoprazole 40 mg tablet,delayed 40 mg PO DAILY #90 tabs 05/16/24 01/24/25 Rx release levothyroxine 100 mcg tablet 100 mcg PO DAILY #90 tabs 08/13/24 01/24/25 Rx hydroxyzine HCl 25 mg tablet 25 mg PO TID PRN anxiety 90 days 10/12/24 01/24/25 Rx #270 tabs levothyroxine 200 mcg tablet 200 mcg PO DAILY #90 tabs 11/12/24 01/24/25 Rx meclizine 25 mg tablet 25 mg PO HS dizziness #30 tabs 11/12/24 01/24/25 Rx albuterol sulfate 90 mcg/actuation 2 puff inhalation Q6H PRN 12/24/24 01/24/25 Rx aerosol inhaler (ProAir HFA) shortness of breath or wheezing #8.5 grams fluticasone 100 mcg-salmeterol 50 1 inh inhalation BID 90 days #60 ea 12/24/24 01/24/25 Rx mcg/dose blistr powdr for inhalation (Advair Diskus) fenofibrate nanocrystallized 48 mg 96 mg PO DAILY 01/24/25 01/24/25 History tablet losartan 100 mg tablet 100 mg PO DAILY 01/25/25 01/24/25 History montelukast 10 mg tablet 10 mg PO HS 01/25/25 01/25/25 History New Prescriptions to Start Prescriptions: Allergies Allergy/AdvReac Type Severity Reaction Status Date / Time No Known Allergies Allergy Verified 01/24/25 13:48 Results Laboratory Findings 01/25/25 05:48 01/25/25 05:48 Abnormal lab findings: Abnormal Labs 01/24/25 01/24/25 01/24/25 14:50 14:56 15:30 WBC 20.7 H* RBC 4.28 L Hgb 13.4 L Hct 40.2 L MCV MCH 31.3 H MCHC MPV 12.1 H Neut % (Auto) 88.5 H Lymph % (Auto) 4.2 L Eos % (Auto) 0.0 L Neut # (Auto) 18.3 H [place] # (Auto) 1.4 H VBG pH 7.47 H VBG pO2 57.3 H VBG Total CO2 27.2 H VBG O2 Saturation 92.3 H VBG Base Excess 2.4 H Chloride 96 L Carbon Dioxide 34 H BUN 30 H Creatinine 1.90 H Estimated GFR 36 L Est GFR ( Amer) 43 L Glucose 122 H Globulin 3.4 H 01/25/25 05:48 WBC 20.6 H* RBC 3.68 L Hgb 11.4 L D Hct 36.0 L MCV 97.8 H MCH MCHC 31.7 L MPV Neut % (Auto) 92.0 H Lymph % (Auto) 3.3 L Eos % (Auto) 0.0 L Neut # (Auto) 18.9 H [place] # (Auto) VBG pH VBG pO2 VBG Total CO2 VBG O2 Saturation VBG Base Excess Chloride Carbon Dioxide 33 H BUN 36 H Creatinine 2.10 H Estimated GFR 32 L Est GFR ( Amer) 38 L Glucose 155 H D Globulin Assessment and Plan *Assessment and plan (1) Acute hypoxic respiratory failure: Status: Acute Category: Medical Code(s): J96.01 - Acute respiratory failure with hypoxia (2) COPD exacerbation: Status: Acute Category: Medical Code(s): J44.1 - Chronic obstructive pulmonary disease with (acute) exacerbation (3) Pneumonia: Status: Acute Qualifiers: Laterality: right Lung location: lower lobe of lung Pneumonia type: due to unspecified organism Qualified Code(s): J18.9 - Pneumonia, unspecified organism Category: Medical Code(s): J18.9 - Pneumonia, unspecified organism Plan Mr. Sandoval is 69-year-old male greater than [id number] smoking history used to smoke 1 to greater than 1 pack a day stopped IV smoking around 2021 since then has been intermittently smoking presented to the ER with worsening respiratory status cough worsening productive phlegm subjective chills and fevers admitted to the hospital found to have airspace disease and pulmonary was called for further evaluation and management. Patient at baseline not using any oxygen supplementation. At baseline using Advair 100 inhaler therapy. Afebrile. Hemodynamically stable notably primary leukocytosis relatively stable with no significant improvement since admission. Continue to receive ceftriaxone and azithromycin 250 mg daily. Received methylprednisolone 40 mg every 12 hours Auscultation bilateral diffuse wheezing. Continued to have cough and productive phlegm, improving. Plan: Continue ceftriaxone and azithromycin pending final sputum culture results, antibiotics can be weaned to cefdinir to complete a total of 5-day course upon discharge Continue DuoNebs every 6 hours along with Pulmicort Q12 scheduled. Inhalers to be changed to Advair 500 upon discharge along with DuoNebs 4 times daily as needed Continue oxygen supplementation to maintain O2 saturation above 90% and above. Currently needing 2 L nasal oxygen supplementation at rest. Will also follow with 6-minute walk testing. # Thank you for involving pulmonary in this patient care. Will follow in the pulmonary clinic 5 to 7 days postdischarge.
--- NOTE | 2025-01-25 17:13 | PC.NURSE ---
Aox 4, 02-3L nc with cpap at HS, 20g R FA SL, 18G L AC SL, heparin for vte, sputum sent, cardiac diet, pulmonary consulted.
[2025-01-25] MEDS: SODIUM CHLORIDE 0.9% 10ML FLUSH SYRINGE 10 ML IV (20:48)
[2025-01-25] MEDS: CARVEDILOL 12.5MG TABLET 12.5 MG PO (20:48)
[2025-01-25] MEDS: PAT OWN MED ***MONTELUKAST SODIUM 10MG 10 MG PO (20:48)
[2025-01-25] MEDS: ATORVASTATIN 40MG TABLET 80 MG PO (20:49)
[2025-01-25] MEDS: PANTOPRAZOLE 40MG TABLET 40 MG PO (20:49)
[2025-01-26] VITALS (11 sets, daily range): BP systolic 129–161; BP diastolic 61–71; PULSE 70–79; RESP 12–18; TEMP 36.2–36.7; O2SAT 90–95; BMI 35.8
[2025-01-26] MEDS: IPRATROPIUM/ALBUTEROL 3 ML NEB IH ×5 (00:17→21:38)
[2025-01-26] MEDS: BUDESONIDE 0.5MG/2ML NEB 0.5 MG IH ×2 (06:05→18:18)
[2025-01-26] MEDS: LEVOTHYROXINE 150MCG (0.15MG)TAB 300 MCG PO (06:24)
--- NOTE | 2025-01-26 06:57 | PC.NURSE ---
PT is Aox 4, 02-4L NC with cpap at HS, 20g R FA SL, 18G L AC SL, heparin for VTE, pulmonary consulted Pt slept most of the night with the Bipap on with the supplemental O2. BRUCE WASHBURN RN
[2025-01-26 07:22] LABS: Hematocrit 38.9 % (42.0-52.0); Hemoglobin 12.2 g/dL (14.1-18.0); Immature Granulocytes % 0.6 %; Mean Corpuscular HGB Conc 31.4 g/dL (31.8-35.4); Mean Corpuscular Hemoglobin 31.3 pg (27.0-31.2); Mean Corpuscular Volume 99.7 fl (80-94); Nucleated Red Blood Cells % 0 %; Platelet Count 378 K/mm3 (142-424); Red Blood Count 3.90 M/mm3 (4.60-6.20); Red Cell Distribution Width-SD 53.9 fL; White Blood Count 23.2 K/mm3 (4.8-10.8)
--- OUTSIDE RECORDS SUMMARY | 2025-01-26 07:41 | XMS_ITS | Clinical Summary ---
Author Organization [facility] Address [address] [place] [address] Care Team Providers Care Hog Operator Name Role Phone Robert Oleary MD Primary [...] - Risk 60-74 years 1-dose series) 2017 [id number] Vaccine (4 - 2024- season) 2024 02/22/2022, [...] Patient has decision-making capacity? Yes Care Teams Hog Operator Relationship Specialty Start Date End Date Robert Oleary MD PCP - General Family Medicine 06/28/23
--- OUTSIDE RECORDS SUMMARY | 2025-01-26 07:41 | XMS_ITS | Encounter Summary ---
Author Organization Healthcare Address [address] [place] [address] Care Team Providers Care Diffusion Operator Name Role Phone Anaid Groves AUBREY Primary Care Provider [phone] Robert Oleary MD Primary Care Provider Rosa vailable Encounter Details Date Type Department Care Team (Late st Contact Info) Description 06/16/2023 Lab Requisition [facility] [address] [place] [address] Fantasma Tejada MD [address] [place] [address] Nontoxic diffuse goiter Social History Tobacco Use [...] 11:06 AM EST) Case Report Cytology Case: [id number] Authorizing Provider: Fantasma Tejada MD Collected: 06/16/20236 Ordering Location: [facility] Received: 06/16/2023 1106 Pathologist: Savana Hardy MD Specimen: Thyroid, [id number] 06/17/2023 11:11 AM EST [facility] Final Diagnosis THYROID, ISTHMUS, FNA (OUTSIDE SLIDES, COLLECTED 05/13/23): - ATYPIA OF UNDETERMINED SIGNIFICANCE - OTHER (BETHESDA CATEGORY III), SEE COMMENT. 06/17/2023 11:11 AM EST [facility] at 1111 EST Comment The specimen is moderately cellular, and shows crowded follicular groups with nuclear enlargement and overlapping. No discernable colloid is noted in the background. Rebiopsy after an appropriate time interval with consideration for molecular testing is suggested. 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 [id number] Received along with a corresponding pathology report from [facility] are 2 slide(s) labeled outside case: [id number] collected on 05/13/2023. 06/17/2023 11:11 AM EST [facility] Fine Needle Aspirate Thyroid structure / Unknown 06/16/2023 11:06 AM EST 06/16/2023 11:06 AM EST us Fantasma Tejada MD LAB PATHOLOGY ORDERABLES Final R esult [facility] [address] [place] [address] documented in this encounter Visit Diagnoses Diagnosis Nontoxic diffuse goiter Goiter, unspecified documented in this encounter Care Teams Diffusion Operator Relationship Specialty Start Date End Date Anaid Groves, BLOOD BANK LABORATORY TECHNICIAN [address] [place], [place] [id number] PCP - General 09/25/21 06/27/23 Robert Oleary MD [address] [place] [address] PCP - General Family Medicine 06/28/23 documented as of this encounter
[2025-01-26 07:42] LABS: Anion Gap 12.2 mEq/L (5-15); Blood Urea Nitrogen 52 mg/dl (9-20); Calcium 8.7 mg/dl (8.4-10.2); Carbon Dioxide 33 mmol/L (22.0-30.0); Chloride 100 mmol/L (98-107); Creatinine Clearance Estimated 56 mL/min (50-200); Creatinine,Serum 2.00 mg/dl (0.66-1.25); Estimated Glomerular Filt Rate 33 ml/min (>60); GFR (African American) 41 ML/MIN (>60); Glucose 133 mg/dl (74-100); Potassium 4.2 mmoL/L (3.5-5.1); Sodium 141 mmol/L (136-145)
--- NOTE | 2025-01-26 08:02 | EXP.ACUTE.PN ---
Subjective *Date: 01/26/25 *Time: 15:13 Interval history: Still dyspneic with significant cough. Requiring 4 L this morning. CPAP overnight. Well-appearing. No nausea or vomiting. Tolerating p.o. intake. Significantly winded with walking to the bathroom Medical Exam Vital signs and Labs for Last 24 Hours: Vital Signs Temp Pulse Pulse Resp BP Pulse Ox O2 Del Method 01/26/25 06:06 73 01/26/25 06:06 71 01/26/25 06:06 90 L BiPAP 01/26/25 05:00 BiPAP 01/26/25 04:00 97.8 F 71 12 129/71 95 01/26/25 03:00 BiPAP 01/26/25 02:00 01/26/25 00:18 74 01/26/25 00:18 75 01/25/25 23:55 98.2 F 72 14 151/74 H 94 L Room Air 01/25/25 23:00 BiPAP 01/25/25 22:00 01/25/25 21:00 Nasal Cannula 01/25/25 20:00 93 L Nasal Cannula 01/25/25 19:46 98.4 F 86 14 145/74 H 90 L Room Air 01/25/25 18:35 91 L Nasal Cannula 01/25/25 18:27 75 01/25/25 18:27 75 01/25/25 18:27 90 L Nasal Cannula 01/25/25 18:17 Nasal Cannula 01/25/25 16:00 97.6 F 74 18 153/73 H 95 BiPAP 01/25/25 14:56 01/25/25 14:19 Nasal Cannula 01/25/25 13:00 Nasal Cannula 01/25/25 12:00 97.4 F L 83 18 136/61 91 L Nasal Cannula 01/25/25 11:10 88 01/25/25 11:10 80 01/25/25 11:10 90 L Nasal Cannula 01/25/25 10:07 Nasal Cannula 01/25/25 09:00 Nasal Cannula O2 Flow Rate FiO2 01/26/25 06:06 01/26/25 06:06 01/26/25 06:06 4 01/26/25 05:00 01/26/25 04:00 01/26/25 03:00 01/26/25 02:00 4 01/26/25 00:18 01/26/25 00:18 01/25/25 23:55 01/25/25 23:00 4 01/25/25 22:00 4 01/25/25 21:00 4 01/25/25 20:00 4 01/25/25 19:46 01/25/25 18:35 4 01/25/25 18:27 01/25/25 18:27 01/25/25 18:27 3 01/25/25 18:17 3 01/25/25 16:00 01/25/25 14:56 35 01/25/25 14:19 3 01/25/25 13:00 3 01/25/25 12:00 3 01/25/25 11:10 01/25/25 11:10 01/25/25 11:10 3 01/25/25 10:07 3 01/25/25 09:00 3 Intake and Output 01/25/25 01/26/25 01/26/25 23:59 07:59 15:59 Intake Total 480 / 1290 240 / 240 Balance 480 / 1290 240 / 240 Intake: Intake, Oral Amount 480 / 1240 240 / 240 Other: Weight 109.815 kg Patient Weight 01/26/25 23:59 Weight 109.815 kg Laboratory Results - last 24 hr 01/26/25 06:59: WBC 23.2 H*, RBC 3.90 L, Hgb 12.2 L, Hct 38.9 L, MCV 99.7 H, MCH 31.3 H, MCHC 31.4 L, RDW 14.8, Plt Count 378, MPV 10.1, Neut % (Auto) 92.4 H, Lymph % (Auto) 3.8 L, [place] % (Auto) 3.1, Eos % (Auto) 0.0 L, Baso % (Auto) 0.1, Neut # (Auto) 21.4 H, Lymph # (Auto) 0.9, [place] # (Auto) 0.7, Eos # (Auto) 0.0, Baso # (Auto) 0.0, Sodium 141, Potassium 4.2, Chloride 100, Carbon Dioxide 33 H, Anion Gap 12.2, BUN 52 H D, Creatinine 2.00 H, Estimated Creat Clear 56, Estimated GFR 33 L, Est GFR ( Amer) 41 L, Glucose 133 H, Calcium 8.7 I & O for Labs for Last 24 Hours: Intake & Output 01/23/25 01/24/25 01/25/25 01/26/25 23:59 23:59 23:59 23:59 Intake Total 470 / 470 1050 / 1290 240 / 240 Output Total 0 / 0 Balance 470 / 470 1050 / 1290 240 / 240 Weight 105.324 kg 106.005 kg 109.815 kg Microbiology Reports for the Last 24 Hours: Microbiology 01/25/25 13:35 Sputum - Expectorated Sputum Gram Stain - Final 01/24/25 15:30 Blood Blood Culture - Preliminary NO GROWTH AFTER 24 HOURS 01/24/25 15:30 Blood Blood Culture - Preliminary NO GROWTH AFTER 24 HOURS 01/24/25 14:41 Sputum - Expectorated Sputum Gram Stain - Final 01/24/25 14:41 Sputum - Expectorated Sputum Sputum Culture - Final Constitutional: Present mild distress, obese, chronically ill appearing and cooperative Head: Present atraumatic and normocephalic Respiratory: Present accessory muscle use, prolonged expiratory phase, wheezes and crackles Cardiac: Present Reg Rate and Rhythm GI: Present soft, distention and normal bowel sounds; Absent tenderness or guarding Extremities: Present normal inspection and full ROM Skin: Present intact; Absent erythema Neuro: Present Grossly Intact, alert, awake, oriented x 3 and moves all extremities Assessment and Plan *Assessment and plan (1) Pneumonia: Status: Acute Qualifiers: Laterality: right Lung location: lower lobe of lung Pneumonia type: due to unspecified organism Qualified Code(s): J18.9 - Pneumonia, unspecified organism Category: Medical Code(s): J18.9 - Pneumonia, unspecified organism (2) Acute hypoxic respiratory failure: Status: Acute Category: Medical Code(s): J96.01 - Acute respiratory failure with hypoxia (3) Leukocytosis: Status: Acute Qualifiers: Leukocytosis type: unspecified Qualified Code(s): D72.829 - Elevated white blood cell count, unspecified Category: Medical Code(s): D72.829 - Elevated white blood cell count, unspecified (4) Acute kidney injury superimposed on chronic kidney disease: Status: Acute Category: Medical Code(s): N17.9 - Acute kidney failure, unspecified; N18.9 - Chronic kidney disease, unspecified (5) COPD exacerbation: Status: Acute Category: Medical Code(s): J44.1 - Chronic obstructive pulmonary disease with (acute) exacerbation (6) Severe sleep apnea: Problem Comment: Severe NAEL, nocturnal hypoxemia. Excellent compliance on AutoPap with oxygen supplementation. Recent CPAP titration with good response to CPAP 17 cm but unable to tolerate optimal pressure. He did not qualify for O2 supplementation during recent titration. Overnight oximetry on CPAP 17 cm shows significant nocturnal hypoxemia but compliance is compromised and he has significant pressure leakage throughout the night. Status: Chronic Category: Medical Code(s): G47.30 - Sleep apnea, unspecified (7) NAEL on CPAP: Status: Chronic Category: Medical Code(s): G47.33 - Obstructive sleep apnea (adult) (pediatric) (8) Obesity (BMI 30.0-34.9): Status: Chronic Category: Medical Code(s): E66.811 - Obesity, class 1 Plan 69-year-old male with sleep apnea and COPD, presented with shortness of breath. No oxygen requirement. Case discussed with ER physician, request admission. Medicine admitted for further management of cute hypoxemic respiratory failure with community-acquired pneumonia and right basilar lung field. Continues to require patient management due to oxygen requirement and severity of illness. Problems addressed as follows: Community-acquired pneumonia, severe, present on admission, suspect bacterial Acute hypoxic respiratory failure, present on admission Leukocytosis COPD exacerbation Obstructive sleep apnea - Will continue 1 g Rocephin IV daily and 250 mg of azithromycin p.o. daily - 600 mg of guaifenesin p.o. twice daily - 10 mg of Singulair p.o. daily - Discussed case with pulmonology, continue ceftriaxone and azithromycin for community-acquired pneumonia. Recommend weaning to cefdinir at discharge to complete 5 days of therapy. - Continue DuoNebs every 6 hours along with Pulmicort twice daily. Transition to Advair 500 upon discharge and DuoNebs as needed 4 times a day - Goal sats greater 90%. Continue supplemental oxygen. Currently on 4 L. Will pursue 6-minute walk test prior to discharge. -Continue to monitor blood and sputum cultures. - White count elevated at 23, hemoglobin 12, Repeat CBC, CMP, magnesium ordered for the morning Acute kidney injury CKD 3 - Baseline creatinine approximately 1.4. Creatinine elevated at 2.0, BUN bumped from 36-52. Potassium 4.2. Hypertension Hyperlipidemia - Blood pressure within normal range at this time; continue carvedilol 12.5 mg twice daily. - Hold amlodipine, hold isosorbide, hold ARB - Holding fenofibrate and statin in the setting of acute illness Hypothyroid: TSH 2 in October. Continue levothyroxine 300 mcg daily GERD: Continue pantoprazole 40 mg daily Full code Cardiac diet Heparin subcu 5000 units 3 times daily
[2025-01-26] MEDS: CARVEDILOL 12.5MG TABLET 12.5 MG PO ×2 (08:20→20:04)
[2025-01-26] MEDS: HEPARIN SODIUM 5,000 UNIT/ML VIAL 5000 UNIT SUBCUT ×3 (08:20→20:04)
[2025-01-26] MEDS: CEFTRIAXONE 1 GM 1 GM in 0.9 % SODIUM CHLORIDE 50 ML IV (08:20)
[2025-01-26] MEDS: AZITHROMYCIN 250MG TABLET 250 MG PO (08:21)
[2025-01-26] MEDS: guaiFENesin 600 MG TAB.ER.12H PO ×2 (08:21→20:04)
[2025-01-26 08:45] LABS: Total Cells Counted 100
[2025-01-26 08:46] LABS: RBC Morphology Normal
[2025-01-26] MEDS: LEVOFLOXACIN/D5W 750 MG/150 ML 750 MG/150 ML PIGGYBACK 100 MG IV (10:34)
--- NOTE | 2025-01-26 16:27 | PC.NURSE ---
Pt is A&OX4. Vital signs stable requiring 4L NC to maintain O2 sats above 90%. Unable to wean from 4L NC this shift. Pt has home CPAP at bedside for at night. IV abx infused per JUN. Pt has a strong and productive cough this shift. Pt has been spitting sputum into emesis bag. Duo-nebs scheduled per JUN. Pt sitting up in the bed comfortably with no further needs voiced at this time. Call light within reach.
[2025-01-26] MEDS: ATORVASTATIN 40MG TABLET 80 MG PO (20:04)
[2025-01-26] MEDS: PAT OWN MED ***MONTELUKAST SODIUM 10MG 10 MG PO (20:04)
[2025-01-26] MEDS: PANTOPRAZOLE 40MG TABLET 40 MG PO (20:04)
--- NOTE | 2025-01-26 20:11 | P.EN_ITS ---
pt c/o throat pain with coughing.... ordered chloraseptic [place] PRN
--- NOTE | 2025-01-26 20:11 | EXP.EVENT.NO ---
pt c/o throat pain with coughing.... ordered chloraseptic [place] PRN
[2025-01-26] MEDS: PHENOL THROAT SPRAY 177 ML BOTTLE MM (20:46)
[2025-01-27] VITALS (11 sets, daily range): BP systolic 139–151; BP diastolic 70–77; PULSE 73–86; RESP 14–20; TEMP 36.6–36.9; O2SAT 89–97; BMI 35.5
--- NOTE | 2025-01-27 04:01 | PC.NURSE ---
patient alert and oriented x4. ambulates in room with standby assistance. tolerating CPAP while asleep and 4L NC while awake, O2 sats remain >90%. patient has a continuous, hacking cough. states he is coughing up some mucous but not much. patient c/o sore throat from cough, hospitalist ordered phenol throat spray, administered per jun. no other needs voiced. call button in reach.
[2025-01-27] MEDS: BUDESONIDE 0.5MG/2ML NEB 0.5 MG IH ×2 (05:26→20:59)
[2025-01-27] MEDS: IPRATROPIUM/ALBUTEROL 3 ML NEB IH ×3 (05:26→20:58)
[2025-01-27 06:46] LABS: Hematocrit 37.1 % (42.0-52.0); Hemoglobin 11.4 g/dL (14.1-18.0); Immature Granulocytes % 0.8 %; Mean Corpuscular HGB Conc 30.7 g/dL (31.8-35.4); Mean Corpuscular Hemoglobin 30.6 pg (27.0-31.2); Mean Corpuscular Volume 99.7 fl (80-94); Nucleated Red Blood Cells % 0 %; Platelet Count 318 K/mm3 (142-424); Red Blood Count 3.72 M/mm3 (4.60-6.20); Red Cell Distribution Width-SD 54.3 fL; White Blood Count 15.9 K/mm3 (4.8-10.8)
[2025-01-27 06:58] LABS: Anion Gap 9.1 mEq/L (5-15); Blood Urea Nitrogen 45 mg/dl (9-20); Calcium 8.3 mg/dl (8.4-10.2); Carbon Dioxide 36 mmol/L (22.0-30.0); Chloride 100 mmol/L (98-107); Creatinine Clearance Estimated 74 mL/min (50-200); Creatinine,Serum 1.50 mg/dl (0.66-1.25); Estimated Glomerular Filt Rate 47 ml/min (>60); GFR (African American) 56 ML/MIN (>60); Glucose 98 mg/dl (74-100); Potassium 4.1 mmoL/L (3.5-5.1); Sodium 141 mmol/L (136-145)
[2025-01-27] MEDS: LEVOTHYROXINE 150MCG (0.15MG)TAB 300 MCG PO (07:24)
[2025-01-27] MEDS: guaiFENesin 600 MG TAB.ER.12H PO ×2 (08:05→20:02)
[2025-01-27] MEDS: HEPARIN SODIUM 5,000 UNIT/ML VIAL 5000 UNIT SUBCUT ×3 (08:06→20:03)
[2025-01-27] MEDS: CARVEDILOL 12.5MG TABLET 12.5 MG PO ×2 (08:06→20:02)
[2025-01-27] MEDS: AZITHROMYCIN 250MG TABLET 250 MG PO (08:06)
--- NOTE | 2025-01-27 08:40 | PC.NURSE ---
pt O2 on room air was 89% this morning. pt placed on 3L NC at this time with O2 sats above 90%.
--- NOTE | 2025-01-27 16:35 | EXP.ACUTE.PN ---
Subjective *Date: 01/27/25 *Time: 16:35 Interval history: Initially had some work of breathing this morning, has had significant mucus production today and is feeling better by the afternoon. Weaned to 2 to 3 L. After much discussion with patient and his significant other, decided to wait till morning for discharge. Tolerating p.o. intake. Ambulating independently. Afebrile Medical Exam Vital signs and Labs for Last 24 Hours: Vital Signs Temp Pulse Pulse Resp BP Pulse Ox O2 Del Method 01/27/25 15:30 98.2 F 84 19 148/70 H 94 L Nasal Cannula 01/27/25 15:00 Nasal Cannula 01/27/25 13:00 Nasal Cannula 01/27/25 12:00 98.3 F 79 18 147/70 H 95 Nasal Cannula 01/27/25 11:00 Nasal Cannula 01/27/25 09:00 Nasal Cannula 01/27/25 08:21 89 L Room Air 01/27/25 08:00 Nasal Cannula 01/27/25 08:00 98.5 F 80 18 139/77 94 L Nasal Cannula 01/27/25 06:39 CPAP 01/27/25 05:27 75 01/27/25 05:27 75 01/27/25 05:27 92 L Nasal Cannula 01/27/25 05:00 CPAP 01/27/25 04:00 97.8 F 73 14 145/71 H 97 CPAP 01/27/25 03:00 CPAP 01/27/25 01:00 CPAP 01/27/25 00:00 97.9 F 76 16 151/74 H 95 CPAP 01/26/25 23:00 CPAP 01/26/25 21:59 77 01/26/25 21:58 73 01/26/25 21:00 Nasal Cannula 01/26/25 20:00 Nasal Cannula 01/26/25 20:00 98.1 F 79 16 161/71 H 91 L Nasal Cannula 01/26/25 19:10 Nasal Cannula 01/26/25 19:09 73 01/26/25 19:09 78 01/26/25 18:46 Nasal Cannula 01/26/25 17:00 Nasal Cannula O2 Flow Rate 01/27/25 15:30 4 01/27/25 15:00 3 01/27/25 13:00 3 01/27/25 12:00 3 01/27/25 11:00 3 01/27/25 09:00 3 01/27/25 08:21 01/27/25 08:00 4 01/27/25 08:00 4 01/27/25 06:39 01/27/25 05:27 01/27/25 05:27 01/27/25 05:27 4 01/27/25 05:00 01/27/25 04:00 01/27/25 03:00 01/27/25 01:00 01/27/25 00:00 01/26/25 23:00 01/26/25 21:59 01/26/25 21:58 01/26/25 21:00 4 01/26/25 20:00 4 01/26/25 20:00 4 01/26/25 19:10 4 01/26/25 19:09 01/26/25 19:09 01/26/25 18:46 4 01/26/25 17:00 4 Intake and Output 01/27/25 01/27/25 01/27/25 07:59 15:59 23:59 Intake Total 240 / 600 360 / 600 Output Total 0 / 0 0 / 0 Balance 240 / 600 360 / 600 Intake: Intake, Oral Amount 240 / 600 360 / 600 Output: Output, Urine Amount 0 / 0 0 / 0 Other: Number of Unmeasured Voids 1 1 Number of Bowel Movements 2 Weight 108.953 kg Patient Weight 01/27/25 23:59 Weight 108.953 kg Laboratory Results - last 24 hr 01/27/25 06:30: WBC 15.9 H D, RBC 3.72 L, Hgb 11.4 L, Hct 37.1 L, MCV 99.7 H, MCH 30.6, MCHC 30.7 L, RDW 14.7, Plt Count 318, MPV 9.7, Neut % (Auto) 79.5, Lymph % (Auto) 11.2, [place] % (Auto) 8.2, Eos % (Auto) 0.1, Baso % (Auto) 0.2, Neut # (Auto) 12.6 H, Lymph # (Auto) 1.8, [place] # (Auto) 1.3 H, Eos # (Auto) 0.0, Baso # (Auto) 0.0, Sodium 141, Potassium 4.1, Chloride 100, Carbon Dioxide 36 H, Anion Gap 9.1, BUN 45 H, Creatinine 1.50 H D, Estimated Creat Clear 74, Estimated GFR 47 L, Est GFR ( Amer) 56 L D, Glucose 98 D, Calcium 8.3 L I & O for Labs for Last 24 Hours: Intake & Output 01/24/25 01/25/25 01/26/25 01/27/25 23:59 23:59 23:59 23:59 Intake Total 470 / 470 1050 / 1290 1280 / 1520 600 / 600 Output Total 0 / 0 0 / 0 0 / 0 Balance 470 / 470 1050 / 1290 1280 / 1520 600 / 600 Weight 105.324 kg 106.005 kg 109.815 kg 108.953 kg Microbiology Reports for the Last 24 Hours: Microbiology 01/25/25 13:35 Sputum - Expectorated Sputum Gram Stain - Final 01/25/25 13:35 Sputum - Expectorated Sputum Sputum Culture - Preliminary 01/24/25 15:30 Blood Blood Culture - Preliminary NO GROWTH AFTER 48 HOURS 01/24/25 15:30 Blood Blood Culture - Preliminary NO GROWTH AFTER 48 HOURS Constitutional: Present no acute distress, obese, chronically ill appearing and cooperative Head: Present atraumatic and normocephalic Respiratory: Present prolonged expiratory phase, rhonchi and wheezes; Absent accessory muscle use or crackles Cardiac: Present Reg Rate and Rhythm GI: Present soft, distention and normal bowel sounds; Absent tenderness or guarding Extremities: Present normal inspection and full ROM Skin: Present intact; Absent erythema Neuro: Present Grossly Intact, alert, awake, oriented x 3 and moves all extremities Assessment and Plan *Assessment and plan (1) Pneumonia: Status: Acute Qualifiers: Laterality: right Lung location: lower lobe of lung Pneumonia type: due to unspecified organism Qualified Code(s): J18.9 - Pneumonia, unspecified organism Category: Medical Code(s): J18.9 - Pneumonia, unspecified organism (2) Acute hypoxic respiratory failure: Status: Acute Category: Medical Code(s): J96.01 - Acute respiratory failure with hypoxia (3) Leukocytosis: Status: Acute Qualifiers: Leukocytosis type: unspecified Qualified Code(s): D72.829 - Elevated white blood cell count, unspecified Category: Medical Code(s): D72.829 - Elevated white blood cell count, unspecified (4) Acute kidney injury superimposed on chronic kidney disease: Status: Acute Category: Medical Code(s): N17.9 - Acute kidney failure, unspecified; N18.9 - Chronic kidney disease, unspecified (5) COPD exacerbation: Status: Acute Category: Medical Code(s): J44.1 - Chronic obstructive pulmonary disease with (acute) exacerbation (6) Severe sleep apnea: Problem Comment: Severe NAEL, nocturnal hypoxemia. Excellent compliance on AutoPap with oxygen supplementation. Recent CPAP titration with good response to CPAP 17 cm but unable to tolerate optimal pressure. He did not qualify for O2 supplementation during recent titration. Overnight oximetry on CPAP 17 cm shows significant nocturnal hypoxemia but compliance is compromised and he has significant pressure leakage throughout the night. Status: Chronic Category: Medical Code(s): G47.30 - Sleep apnea, unspecified (7) NAEL on CPAP: Status: Chronic Category: Medical Code(s): G47.33 - Obstructive sleep apnea (adult) (pediatric) (8) Obesity (BMI 30.0-34.9): Status: Chronic Category: Medical Code(s): E66.811 - Obesity, class 1 Plan 69-year-old male with sleep apnea and COPD, presented with shortness of breath. No oxygen requirement. Case discussed with ER physician, request admission. Medicine admitted for further management of cute hypoxemic respiratory failure with community-acquired pneumonia and right basilar lung field. Showing improvement. Plan to discharge in the morning. Problems addressed as follows: Community-acquired pneumonia, severe, present on admission, suspect bacterial Acute hypoxic respiratory failure, present on admission Leukocytosis COPD exacerbation Obstructive sleep apnea - Transitioned to Levaquin. Continue 750 mg daily. Completed azithromycin course. - 600 mg of guaifenesin p.o. twice daily - 10 mg of Singulair p.o. daily - Continue DuoNebs every 6 hours along with Pulmicort twice daily. Transition to Advair 500 upon discharge and DuoNebs as needed 4 times a day - Goal sats greater 90%. Continue supplemental oxygen. Currently on 3 L. - Continue to monitor blood and sputum cultures. - White count improved to 15. 9, down from 23. Hemoglobin 11.4. Repeat CBC, CMP, magnesium ordered for the morning Acute kidney injury CKD 3 - Baseline creatinine approximately 1.4. Creatinine 1.5 today. BUN 45. Showing improvement. Potassium 4.1. Sodium 141. Hypertension Hyperlipidemia - Blood pressure within normal range at this time; continue carvedilol 12.5 mg twice daily. - Hold amlodipine, hold isosorbide, hold ARB; resume at discharge - Holding fenofibrate and statin in the setting of acute illness; resume at discharge Hypothyroid: TSH 2 in October. Continue levothyroxine 300 mcg daily GERD: Continue pantoprazole 40 mg daily Full code Cardiac diet Heparin subcu 5000 units 3 times daily
--- NOTE | 2025-01-27 16:43 | PC.NURSE ---
Pt is A&OX4. Vital signs stable requiring 3L NC to maintain O2 above 90%. Home CPAP at bedside for at night. PO abx given per JUN. Duo-nebs scheduled Q4. Pt continues to have productive cough. Pt has sat up in the chair most of this shift. Pt ambulated in the hallway with assistance. Pt resting comfortably sitting up in the chair with no further needs voiced at this time. Call light within reach
[2025-01-27] MEDS: PAT OWN MED ***MONTELUKAST SODIUM 10MG 10 MG PO (20:02)
[2025-01-27] MEDS: ATORVASTATIN 40MG TABLET 80 MG PO (20:02)
[2025-01-27] MEDS: PANTOPRAZOLE 40MG TABLET 40 MG PO (20:02)
[2025-01-28] VITALS: BP 147/69; PULSE 78; RESP 18; TEMP 36.8; O2SAT 95
[2025-01-28 04:00] VITALS: BP 161/77; PULSE 81; RESP 18; TEMP 36.9; O2SAT 91; BMI 35.2
[2025-01-28 06:33] LABS: Hematocrit 37.9 % (42.0-52.0); Hemoglobin 11.9 g/dL (14.1-18.0); Immature Granulocytes % 2.1 %; Mean Corpuscular HGB Conc 31.4 g/dL (31.8-35.4); Mean Corpuscular Hemoglobin 30.9 pg (27.0-31.2); Mean Corpuscular Volume 98.4 fl (80-94); Nucleated Red Blood Cells % 0 %; Platelet Count 325 K/mm3 (142-424); Red Blood Count 3.85 M/mm3 (4.60-6.20); Red Cell Distribution Width-SD 51.8 fL; White Blood Count 13.6 K/mm3 (4.8-10.8)
[2025-01-28 06:48] LABS: Anion Gap 8.8 mEq/L (5-15); Blood Urea Nitrogen 30 mg/dl (9-20); Calcium 8.3 mg/dl (8.4-10.2); Carbon Dioxide 38 mmol/L (22.0-30.0); Chloride 98 mmol/L (98-107); Creatinine Clearance Estimated 84 mL/min (50-200); Creatinine,Serum 1.30 mg/dl (0.66-1.25); Estimated Glomerular Filt Rate 55 ml/min (>60); GFR (African American) 67 ML/MIN (>60); Glucose 111 mg/dl (74-100); Potassium 3.8 mmoL/L (3.5-5.1); Sodium 141 mmol/L (136-145)
[2025-01-28] MEDS: LEVOTHYROXINE 150MCG (0.15MG)TAB 300 MCG PO (06:52)
[2025-01-28 07:34] VITALS: BP 160/82; PULSE 79; RESP 18; TEMP 36.6; O2SAT 91
--- NOTE | 2025-01-28 08:27 | EXP.PHA.PN ---
Subjective *Date: 01/28/25 *Time: 08:27 Medical Exam Vital signs and Labs for Last 24 Hours: Vital Signs Temp Pulse Pulse Resp BP Pulse Ox O2 Del Method 01/28/25 07:34 97.9 F 79 18 160/82 H 91 L Nasal Cannula 01/28/25 06:56 Nasal Cannula 01/28/25 05:00 CPAP 01/28/25 04:00 98.4 F 81 18 161/77 H 91 L CPAP 01/28/25 03:00 CPAP 01/28/25 00:55 CPAP 01/28/25 00:00 98.3 F 78 18 147/69 H 95 CPAP 01/27/25 23:00 CPAP 01/27/25 21:43 74 01/27/25 21:42 77 01/27/25 21:00 Nasal Cannula 01/27/25 20:00 98.2 F 86 20 150/75 H 94 L Nasal Cannula 01/27/25 20:00 Nasal Cannula, CPAP 01/27/25 19:02 Nasal Cannula 01/27/25 19:01 73 01/27/25 19:01 76 01/27/25 18:48 Nasal Cannula 01/27/25 17:00 Nasal Cannula 01/27/25 15:30 98.2 F 84 19 148/70 H 94 L Nasal Cannula 01/27/25 15:00 Nasal Cannula 01/27/25 13:00 Nasal Cannula 01/27/25 12:00 98.3 F 79 18 147/70 H 95 Nasal Cannula 01/27/25 11:00 Nasal Cannula 01/27/25 09:00 Nasal Cannula O2 Flow Rate 01/28/25 07:34 3 01/28/25 06:56 3 01/28/25 05:00 01/28/25 04:00 01/28/25 03:00 01/28/25 00:55 01/28/25 00:00 01/27/25 23:00 01/27/25 21:43 01/27/25 21:42 01/27/25 21:00 3 01/27/25 20:00 4 01/27/25 20:00 3 01/27/25 19:02 4 01/27/25 19:01 01/27/25 19:01 01/27/25 18:48 3 01/27/25 17:00 3 09/28/25 15:30 4 01/27/25 15:00 3 01/27/25 13:00 3 01/27/25 12:00 3 01/27/25 11:00 3 01/27/25 09:00 3 Intake and Output 01/27/25 01/28/25 01/28/25 23:59 07:59 15:59 Intake Total 540 / 1140 Output Total 0 / 0 0 / 0 Balance 540 / 1140 0 / 0 Intake: Intake, Oral Amount 540 / 1140 Output: Output, Urine Amount 0 / 0 0 / 0 Other: Number of Unmeasured Voids 1 1 Weight 107.819 kg Patient Weight 01/28/25 23:59 Weight 107.819 kg Laboratory Results - last 24 hr 01/28/25 05:56: WBC 13.6 H, RBC 3.85 L, Hgb 11.9 L, Hct 37.9 L, MCV 98.4 H, MCH 30.9, MCHC 31.4 L, RDW 14.4, Plt Count 325, MPV 9.9, Neut % (Auto) 74.6, Lymph % (Auto) 13.7, [place] % (Auto) 8.5, Eos % (Auto) 0.7, Baso % (Auto) 0.4, Neut # (Auto) 10.2 H, Lymph # (Auto) 1.9, [place] # (Auto) 1.2 H, Eos # (Auto) 0.1, Baso # (Auto) 0.1, Sodium 141, Potassium 3.8, Chloride 98, Carbon Dioxide 38 H, Anion Gap 8.8, BUN 30 H D, Creatinine 1.30 H, Estimated Creat Clear 84, Estimated GFR 55 L, Est GFR ( Amer) 67, Glucose 111 H, Calcium 8.3 L I & O for Labs for Last 24 Hours: Intake & Output 01/25/25 01/26/25 01/27/25 01/28/25 23:59 23:59 23:59 23:59 Intake Total 1050 / 1290 1280 / 1520 1140 / 1140 Output Total 0 / 0 0 / 0 0 / 0 0 / 0 Balance 1050 / 1290 1280 / 1520 1140 / 1140 0 / 0 Weight 106.005 kg 109.815 kg 108.953 kg 107.819 kg Microbiology Reports for the Last 24 Hours: Microbiology 01/25/25 13:35 Sputum - Expectorated Sputum Gram Stain - Final 01/25/25 13:35 Sputum - Expectorated Sputum Sputum Culture - Preliminary The patient's infection will respond to the chosen ABx?: Yes (BLOOD CX NO GROWTH AT 24 HR, SPUTUM PENDING, AFEBRILE OVER 24 HR) Is the patient receiving the right drug, dose, and route?: Yes Could a more targeted ABx be ordered?: No How long ABx needed (days)?: 5
[2025-01-28] MEDS: guaiFENesin 600 MG TAB.ER.12H PO (08:37)
[2025-01-28] MEDS: CARVEDILOL 12.5MG TABLET 12.5 MG PO (08:37)
[2025-01-28] MEDS: AZITHROMYCIN 250MG TABLET 250 MG PO (08:37)
[2025-01-28] MEDS: HEPARIN SODIUM 5,000 UNIT/ML VIAL 5000 UNIT SUBCUT (08:37)
--- NOTE | 2025-01-28 09:41 | P.PN_ITS ---
Subjective *Date: 01/30/25 *Time: 17:47 Interval history: No acute respiratory events over the weekend. Patient admits continued improvement in his respiratory symptoms Pulmonology Exam Inpatient Vital signs and Labs for Last 24 Hours: Temp Pulse Resp BP Pulse Ox O2 Del Method O2 Flow Rate 97.9 F 79 18 160/82 H 91 L Nasal Cannula 3 01/28/25 07:34 01/28/25 07:34 01/28/25 07:34 01/28/25 07:34 01/28/25 07:34 01/28/25 08:48 01/28/25 08:48 FiO2 35 01/25/25 14:56 Laboratory Results - last 24 hr 01/28/25 05:56: WBC 13.6 H, RBC 3.85 L, Hgb 11.9 L, Hct 37.9 L, MCV 98.4 H, MCH 30.9, MCHC 31.4 L, RDW 14.4, Plt Count 325, MPV 9.9, Neut % (Auto) 74.6, Lymph % (Auto) 13.7, [place] % (Auto) 8.5, Eos % (Auto) 0.7, Baso % (Auto) 0.4, Neut # (Auto) 10.2 H, Lymph # (Auto) 1.9, [place] # (Auto) 1.2 H, Eos # (Auto) 0.1, Baso # (Auto) 0.1, Sodium 141, Potassium 3.8, Chloride 98, Carbon Dioxide 38 H, Anion Gap 8.8, BUN 30 H D, Creatinine 1.30 H, Estimated Creat Clear 84, Estimated GFR 55 L, Est GFR ( Amer) 67, Glucose 111 H, Calcium 8.3 L Temp Pulse Resp BP Pulse Ox O2 Del Method O2 Flow Rate 97.4 F L 83 18 136/61 91 L Nasal Cannula 3 01/25/25 12:00 01/25/25 12:00 01/25/25 12:00 01/25/25 12:00 01/25/25 12:00 01/25/25 12:00 01/25/25 12:00 FiO2 35 01/25/25 02:00 Laboratory Results - last 24 hr 01/24/25 14:50: WBC 20.7 H*, RBC 4.28 L, Hgb 13.4 L, Hct 40.2 L, MCV 93.9, MCH 3 1.3 H, MCHC 33.3, RDW 17.3, Plt Count 213, MPV 12.1 H, Neut % (Auto) 88.5 H, Lymph % (Auto) 4.2 L, [place] % (Auto) 6.6, Eos % (Auto) 0.0 L, Baso % (Auto) 0.3, Neut # (Auto) 18.3 H, Lymph # (Auto) 0.9, [place] # (Auto) 1.4 H, Eos # (Auto) 0.0, Baso # (Auto) 0.1 01/24/25 14:56: VBG pH 7.47 H, VBG pCO2 36.6, VBG pO2 57.3 H, VBG HCO3 26.1, VBG Total CO2 27.2 H, VBG O2 Saturation 92.3 H, VBG Base Excess 2.4 H, VBG Lactic Acid 2.0 01/24/25 15:15: SARS-CoV-2 (PCR) Not detected, Influenza A Untype (PCR) Not detected, Influenza Type B (PCR) Not detected 01/24/25 15:30: Sodium 140, Potassium 3.9, Chloride 96 L, Carbon Dioxide 34 H, Anion Gap 13.9, BUN 30 H, Creatinine 1.90 H, Estimated Creat Clear 57, Estimated GFR 36 L, Est GFR ( Amer) 43 L, Glucose 122 H, Calcium 9.3, Total Bilirubin 0.9, AST 55, ALT 40, Alkaline Phosphatase 53, Troponin I < 0.01, Total Protein 7.5, Albumin 4.1, Globulin 3.4 H, Albumin/Globulin Ratio 1.2 01/25/25 05:48: WBC 20.6 H*, RBC 3.68 L, Hgb 11.4 L D, Hct 36.0 L, MCV 97.8 H, MCH 31.0, MCHC 31.7 L, RDW 14.4, Plt Count 312 D, MPV 10.0, Neut % (Auto) 92.0 H, Lymph % (Auto) 3.3 L, [place] % (Auto) 3.5, Eos % (Auto) 0.0 L, Baso % (Auto) 0.1, Neut # (Auto) 18.9 H, Lymph # (Auto) 0.7, [place] # (Auto) 0.7, Eos # (Auto) 0.0, Baso # (Auto) 0.0, Sodium 139, Potassium 4.2, Chloride 100, Carbon Dioxide 33 H, Anion Gap 10.2, BUN 36 H, Creatinine 2.10 H, Estimated Creat Clear 51, Estimated GFR 32 L, Est GFR ( Amer) 38 L, Glucose 155 H D, Calcium 8.5 I & O for Labs for Last 24 Hours: Intake & Output 01/25/25 01/26/25 01/27/25 01/28/25 23:59 23:59 23:59 23:59 Intake Total 1050 / 1290 1280 / 1520 1140 / 1140 480 / 480 Output Total 0 / 0 0 / 0 0 / 0 0 / 0 Balance 1050 / 1290 1280 / 1520 1140 / 1140 480 / 480 Weight 233 lb 11.2 oz 242 lb 1.6 oz 240 lb 3.2 oz 237 lb 11.2 oz Intake & Output 01/22/25 01/23/25 01/24/25 01/25/25 23:59 23:59 23:59 23:59 Intake Total 470 / 470 210 / 210 Output Total 0 / 0 Balance 470 / 470 210 / 210 Weight 232 lb 3.2 oz 233 lb 11.2 oz Microbiology Reports for the Last 24 Hours: Microbiology 01/25/25 13:35 Sputum - Expectorated Sputum Gram Stain - Final 01/25/25 13:35 Sputum - Expectorated Sputum Sputum Culture - Preliminary Microbiology 01/24/25 14:41 Sputum - Expectorated Sputum Gram Stain - Final 01/24/25 14:41 Sputum - Expectorated Sputum Sputum Culture - Final Constitutional: Present moderate distress Head: Present normocephalic and atraumatic ENT: Present normal exam, normal oropharynx and mucous membranes moist Neck: Present normal inspection and full ROM Respiratory: Present prolonged expiratory phase, respiratory distress, diminished air movement and able to speak in complete sentences; Absent wheezes Cardiac: Present S1/S2, Tachycardia and radial pulses present GI: Present soft and distention; Absent tenderness or guarding Skin: Present intact; Absent cyanosis or jaundice Neuro: Present alert, awake and oriented x 3 Extremities: Present normal inspection; Absent clubbing or cyanosis Psychiatric: Present normal affect and cooperative Assessment and Plan *Assessment and plan (1) Acute hypoxic respiratory failure: Status: Acute Category: Medical Code(s): J96.01 - Acute respiratory failure with hypoxia (2) COPD exacerbation: Status: Acute Category: Medical Code(s): J44.1 - Chronic obstructive pulmonary disease with (acute) exacerbation (3) Pneumonia: Status: Acute Qualifiers: Laterality: right Lung location: lower lobe of lung Pneumonia type: due to unspecified organism Qualified Code(s): J18.9 - Pneumonia, unspecified organism Category: Medical Code(s): J18.9 - Pneumonia, unspecified organism Plan Mr. Sandoval is 69-year-old male greater than [id number]-achl smoking history used to smoke 1 to greater than 1 pack a day stopped IV smoking around 2021 since then has been intermittently smoking presented to the ER with worsening respiratory status cough worsening productive phlegm subjective chills and fevers admitted to the hospital found to have airspace disease and pulmonary was called for further evaluation and management. Patient at baseline not using any oxygen supplementation. At baseline using Advair 100 inhaler therapy. Afebrile. Hemodynamically stable notably primary leukocytosis relatively stable with no significant improvement since admission. Continue to receive ceftriaxone and azithromycin 250 mg daily. Received methylprednisolone 40 mg every 12 hours Auscultation bilateral diffuse wheezing. Continued to have cough and productive phlegm, improving. Interval update: Worsening leukocytosis over the weekend, antibiotics changed to levofloxacin. Improving leukocytosis after antibiotic changed to levofloxacin. Otherwise afebrile. Hemodynamically stable. Plan: Continue levofloxacin to complete a total of 5-day course. Continue DuoNebs every 6 hours along with Pulmicort Q12 scheduled. Patient can be discharged home on Trelegy 100 inhaler along with DuoNebs 4 times daily. Continue oxygen supplementation to maintain O2 saturation above 90% and above. Currently needing 2 L nasal oxygen supplementation at rest. Will also follow with 6-minute walk testing. # Thank you for involving pulmonary in this patient care. Will follow in the pulmonary clinic 5 to 7 days postdischarge.
--- NOTE | 2025-01-28 09:43 | XR_ITS ---
FINAL REPORT CLINICAL HISTORY: PNM COMPARISON: 01/24/2025 FINDINGS: The heart size is normal. The mediastinum is normal. There is no focal infiltrate or edema. There are no pleural effusions. There is no pneumothorax. There is no osseous abnormality. IMPRESSION: No acute cardiopulmonary process Reviewed, Interpreted and Dictated by Binh Rea MD Transcribed by Alena Oneil Authenticated and [facility]
--- NOTE | 2025-01-28 09:58 | P.DS_ITS ---
<Statement entered by Viktor Alonso MD - 01/31/25 10:52> Agree with plan of care as outlined by the FIBERGL[employer] DOWEL DRAWING OPERATOR below. General Admission date:: 01/24/25 Discharge date: 01/28/25 HPI HPI HPI: This is a 69-year-old male who has a past medical history significant for diastolic dysfunction congestive heart failure, tricuspid regurgitation, mitral valve regurgitation, former smoker, pulmonary emphysema, COPD, hyperlipidemia, hypertensive heart disease, and coronary artery disease who presents with a chief complaint of shortness of air. Due to patient symptomology, he presented to his primary care's office for evaluation and was found to be significantly hypoxic. Patient was transition to the emergency room via EMS. While in the emergency room, patient's room air saturation was in the 80 percentile, so he was placed on supplemental oxygen. Plain films of the chest per my read shows a right lower lobe pneumonia. As result of these findings, hospital medicine was consulted for further management. Patient states his symptomology started around Tuesday/Tuesday. He reports having a cough with productive yellow sputum. He states that his shortness of breath progressively got worse. He was experiencing dyspnea with exertion and difficulty laying flat. He states he presented to his PCP where they found him to be hypoxic and he transition to the emergency room for further management. Patient states he was a former smoker and stopped approximately 3 years ago. After losing his job and taking a pay cut, patient states he had 1 cigarette approximately 1 month ago but did not resume his heavy smoking from the past. Patient mentions that he has obstructive sleep apnea and wears CPAP at night. He is currently denying any chest pain, lightheadedness, dizziness, fever, chills, rigors, nausea, vomiting, PND, orthopnea, or diarrhea. Additional pertinent vitals obtained include a white blood cell count of 20.7, red blood cell count of 4.28, hemoglobin 13.4, hematocrit 40.2, neutrophils 88.5%, chloride of 96, carbon oxide of 34, BUN of 30, creatinine 1.90, GFR 36, and blood glucose 122. It is worth mentioning that patient is normally not home O2 dependent. Hospital Course Hospital Course Hospital Course: 69-year-old male with sleep apnea and COPD, presented with shortness of breath. Medicine admitted for further management of acute hypoxemic respiratory failure with community-acquired pneumonia and right basilar lung field with new oxygen requirement. #Community-acquired pneumonia, severe, present on admission, suspect bacterial #Acute hypoxic respiratory failure, present on admission #Leukocytosis #COPD exacerbation #Obstructive sleep apnea - Repeat chest x-ray day of discharge shows no acute findings. Patient should follow-up with PCP within 1 week and pulmonology within 1 week. Continue using O2 3 L nasal cannula to maintain oxygen saturation above 90%, wean as tolerated. Continue to use CPAP at night. - Transitioned to Levaquin. Continue 750 mg daily. Completed azithromycin course. - Continue singular 10 mg daily and guaifenesin 600 mg twice daily as needed at discharge. - Continue DuoNebs 4 times daily at discharge, start Trelegy inhaler daily per pulmonology. - Patient O2 86% on room air at rest, patient required 3 L to remain above 90%. Patient being discharged home on 3 L nasal cannula. - Blood and sputum cultures remain negative after 48 hours. - White count improved to 13.6. Hemoglobin stable at 11.9. #Acute kidney injury #CKD 3 - Baseline creatinine approximately 1.4. Creatinine day of discharge 1.30. BUN 30. No electrolyte abnormalities noted, sodium 141, potassium 3.8 #Hypertension #Hyperlipidemia - Continue amlodipine 10 mg daily, carvedilol 12.5 mg twice daily, isosorbide 30 mg daily, and losartan 100 mg daily at discharge. - Continue atorvastatin 80 mg daily and fenofibrate 96 mg daily at discharge. - Continue aspirin 81 mg daily at discharge. #Hypothyroid: TSH 2 in October. Continue levothyroxine 300 mcg daily at discharge. #GERD: Continue pantoprazole 40 mg daily at discharge. Total time spent on discharge 32 minutes in counseling, documentation, chart review, and direct care with patient. Exam Data for Last 24 hours Vital signs and Labs for Last 24 Hours: Temp Pulse Resp BP Pulse Ox O2 Del Method O2 Flow Rate 97.9 F 79 18 160/82 H 91 L Nasal Cannula 3 01/28/25 07:34 01/28/25 07:34 01/28/25 07:34 01/28/25 07:34 01/28/25 07:34 01/28/25 08:48 01/28/25 08:48 FiO2 35 01/25/25 14:56 Laboratory Results - last 24 hr 01/28/25 05:56: WBC 13.6 H, RBC 3.85 L, Hgb 11.9 L, Hct 37.9 L, MCV 98.4 H, MCH 30.9, MCHC 31.4 L, RDW 14.4, Plt Count 325, MPV 9.9, Neut % (Auto) 74.6, Lymph % (Auto) 13.7, [place] % (Auto) 8.5, Eos % (Auto) 0.7, Baso % (Auto) 0.4, Neut # (Auto) 10.2 H, Lymph # (Auto) 1.9, [place] # (Auto) 1.2 H, Eos # (Auto) 0.1, Baso # (Auto) 0.1, Sodium 141, Potassium 3.8, Chloride 98, Carbon Dioxide 38 H, Anion Gap 8.8, BUN 30 H D, Creatinine 1.30 H, Estimated Creat Clear 84, Estimated GFR 55 L, Est GFR ( Amer) 67, Glucose 111 H, Calcium 8.3 L I & O for Last 24 hours: Intake & Output 01/25/25 01/26/25 01/27/25 01/28/25 23:59 23:59 23:59 23:59 Intake Total 1050 / 1290 1280 / 1520 1140 / 1140 480 / 480 Output Total 0 / 0 0 / 0 0 / 0 0 / 0 Balance 1050 / 1290 1280 / 1520 1140 / 1140 480 / 480 Weight 106.005 kg 109.815 kg 108.953 kg 107.819 kg Microbiology Reports for the Last 24 Hours: Microbiology 01/25/25 13:35 Sputum - Expectorated Sputum Gram Stain - Final 01/25/25 13:35 Sputum - Expectorated Sputum Sputum Culture - Preliminary Constitutional Constitutional: no acute distress, obese and cooperative *Routine HEENT Exam Head: Present normocephalic Eye: Present EOMI ENT: Present mucous membranes moist *Routine Neck Exam Neck: Present supple and full ROM *Routine Respiratory Exam Respiratory: Present decreased breath sounds, prolonged expiratory phase, able to speak in complete sentences and symmetric chest movement; Absent wheezes or crackles *Routine Cardiovascular Exam Cardiovascular: Present RRR; Absent murmur *Routine Abdominal Exam Abdominal: Present soft, normoactive bowel sounds and obese; Absent tenderness or distended *Routine Extremities Exam Extremities: Present pulses intact and normal capillary refill; Absent clubbing or edema *Routine Skin Exam Skin: Present intact and dry *Routine Neurological Exam Neurological: Present alert, oriented X3 and normal speech Results Data Completed and Pending Labs on day of discharge: Labs from last 24 hours 01/28/25 05:56 WBC 13.6 H RBC 3.85 L Hgb 11.9 L Hct 37.9 L MCV 98.4 H MCH 30.9 MCHC 31.4 L RDW 14.4 Plt Count 325 MPV 9.9 Neut % (Auto) 74.6 Lymph % (Auto) 13.7 [place] % (Auto) 8.5 Eos % (Auto) 0.7 Baso % (Auto) 0.4 Neut # (Auto) 10.2 H Lymph # (Auto) 1.9 [place] # (Auto) 1.2 H Eos # (Auto) 0.1 Baso # (Auto) 0.1 Sodium 141 Potassium 3.8 Chloride 98 Carbon Dioxide 38 H Anion Gap 8.8 BUN 30 H D Creatinine 1.30 H Estimated Creat Clear 84 Estimated GFR 55 L Est GFR ( Amer) 67 Glucose 111 H Calcium 8.3 L Preliminary micro results at discharge 01/25/25 13:35 Sputum Culture - Preliminary Sputum - Expectorated Sputum 01/24/25 15:30 Blood Culture - Preliminary Blood NO GROWTH AFTER 48 HOURS 01/24/25 15:30 Blood Culture - Preliminary Blood NO GROWTH AFTER 48 HOURS DS: Diagnosis Discharge Diagnosis (1) Acute hypoxic respiratory failure: Status: Acute Code(s): J96.01 - Acute respiratory failure with hypoxia (2) COPD exacerbation: Status: Acute Code(s): J44.1 - Chronic obstructive pulmonary disease with (acute) exacerbation (3) Pneumonia: Status: Acute Code(s): J18.9 - Pneumonia, unspecified organism Qualifiers: Laterality: right Lung location: lower lobe of lung Pneumonia type: due to unspecified organism Qualified Code(s): J18.9 - Pneumonia, unspecified organism (4) Obesity (BMI 30.0-34.9): Status: Chronic Code(s): E66.811 - Obesity, class 1 (5) Leukocytosis: Status: Acute Code(s): D72.829 - Elevated white blood cell count, unspecified Qualifiers: Leukocytosis type: unspecified Qualified Code(s): D72.829 - Elevated white blood cell count, unspecified (6) Acute kidney injury superimposed on chronic kidney disease: Status: Acute Code(s): N17.9 - Acute kidney failure, unspecified; N18.9 - Chronic kidney disease, unspecified (7) Severe sleep apnea: Status: Chronic Code(s): G47.30 - Sleep apnea, unspecified Problem details: Severe NAEL, nocturnal hypoxemia. Excellent compliance on AutoPap with oxygen supplementation. Recent CPAP titration with good response to CPAP 17 cm but unable to tolerate optimal pressure. He did not qualify for O2 supplementation during recent titration. Overnight oximetry on CPAP 17 cm shows significant nocturnal hypoxemia but compliance is compromised and he has significant pressure leakage throughout the night. Meds Home Medications and Allergies Home Medications ?Medication ?Instructions ?Recorded ?Confirmed ?Type nitroglycerin 0.4 mg sublingual 0.4 mg sublingual Q5-1 5M PRN chest 09/30/20 Rx tablet pain #25 tabs docusate sodium 50 mg capsule 50 mg PO DAILY 01/18/22 01/24/25 History (Stool Softener) acetaminophen 500 mg tablet 500 mg PO Q6H PRN Pain 04/2401/24/25 History (Tylenol Extra Strength) amlodipine 10 mg tablet 10 mg PO DAILY 90 days #90 t abs 05/16/24 01/24/25 Rx aspirin 81 mg tablet,delayed 81 mg PO DAILY Blood thin ner 90 05/16/24 01/24/25 Rx release (Adult Low Dose Aspirin) days #90 tabs atorvastatin 80 mg tablet 80 mg PO DAILY Cholesterol # 90 tabs 05/16/24 01/24/25 Rx carvedilol 12.5 mg tablet (Coreg) 12.5 mg PO BID 90 da ys #180 tabs 05/16/24 01/24/25 Rx ezetimibe 10 mg tablet (Zetia) 10 mg PO DAILY #90 tabs 05/16/24 01/24/25 Rx isosorbide mononitrate 30 mg 30 mg PO DAILY Hypertensi on 90 05/16/24 01/24/25 Rx tablet,extended release 24 hr days #90 tabs pantoprazole 40 mg tablet,delayed 40 mg PO DAILY #90 t abs 05/16/24 01/24/25 Rx release levothyroxine 100 mcg tablet 100 mcg PO DAILY #90 tabs 08/13/24 01/24/25 Rx hydroxyzine HCl 25 mg tablet 25 mg PO TID PRN anxiety 90 days 10/12/24 01/24/25 Rx #270 tabs levothyroxine 200 mcg tablet 200 mcg PO DAILY #90 tabs 11/12/24 01/24/25 Rx meclizine 25 mg tablet 25 mg PO HS dizziness #30 ta bs 11/12/24 01/24/25 Rx albuterol sulfate 90 mcg/actuation 2 puff inhalation Q 6H PRN 12/24/24 01/24/25 Rx aerosol inhaler (ProAir HFA) shortness of breath or wh eezing #8.5 grams losartan 100 mg tablet 100 mg PO DAILY 01/25/25 History montelukast 10 mg tablet 10 mg PO HS 01/25/25 5 History fluticasone 500 mcg-salmeterol 50 1 inh inhalation BID RT 30 days #60 01/27/25 Rx mcg/dose blistr powdr for ea inhalation ipratropium 0.5 mg-albuterol 3 mg 3 ml inhalation Q4-6 H PRN Wheezing 01/27/25 Rx (2.5 mg base)/3 mL nebulization 30 days #180 mL soln levofloxacin 750 mg tablet 750 mg PO 1100 3 days #3 ta bs 01/27/25 Rx fenofibrate nanocrystallized 48 mg 96 mg (2 x 48 mg) P O DAILY #60 tabs 01/28/25 Rx tablet fluticasone fur. 100 mcg-umeclid 1 inh inhalation ALEX Y #3 ea 01/28/25 Rx 62.5 mcg-vilant 25 mcg inhalat.powder (Trelegy Ellipta) New Prescriptions to Start Prescriptions: fenofibrate nanocrystallized Betty Vaughan fluticasone propion-salmeterol Carson,Solo [id number] [Trelegy Ellipta] Christopher Bradley ipratropium-albuterol Carson,Solo levofloxacin Solo Byrd Allergies Allergy/AdvReac Type Severity Reaction Status Date / Time No Known Allergies Allergy Verified 01/24/25 13:48 Discharge Plan Disposition Patient Disposition: Home, Self-Care Condition: Good Discharge Order Discharge Orders: Discharge Order (Routine); Ordered 01/28/25 Ordered By: Betty Vaughan Follow up Plan Follow up with: Robert Oleary MD [Staff Physician] - 02/04/25 11:30 am Christopher Bradley MD [Physician, Pulmonology] - 02/06/25 1:00 pm Prescriptions/Medication Reconciliation: New ipratropium-albuterol 0.5 mg-3 mg(2.5 mg base)/3 mL Solution For Nebulization 3 ml inhalation Q4-6H PRN (Reason: Wheezing) 30 Days Qty: 180 0RF fluticasone propion-salmeterol 500-50 mcg/dose Blister With Device 1 inh inhalation BIDRT 30 Days Qty: 60 0RF levofloxacin 750 mg Tablet 750 mg PO 1100 3 Days Qty: 3 0RF Trelegy Ellipta 100-62.5-25 mcg blister with device 1 inh inhalation DAILY Qty: 3 3RF fenofibrate nanocrystallized 48 mg tablet 96 mg PO DAILY Qty: 60 0RF Continued meclizine 25 mg tablet 25 mg PO HS Qty: 30 2RF Stool Softener 50 mg capsule 50 mg PO DAILY acetaminophen [Tylenol Extra Strength] 500 mg tablet 500 mg PO Q6H PRN (Reason: Pain) amlodipine 10 mg tablet 10 mg PO DAILY 90 Days Qty: 90 3RF aspirin [Adult Low Dose Aspirin] 81 mg tablet,delayed release (DR/EC) 81 mg PO DAILY 90 Days Qty: 90 3RF atorvastatin 80 mg tablet 80 mg PO DAILY Qty: 90 3RF Patient Comments: UNAWARE OF DOSE OF MEDICATIO carvedilol [Coreg] 12.5 mg tablet 12.5 mg PO BID 90 Days Qty: 180 3RF Rx Instructions: must administer with a meal/food ezetimibe [Zetia] 10 mg tablet 10 mg PO DAILY Qty: 90 3RF isosorbide mononitrate 30 mg tablet extended release 24 hr 30 mg PO DAILY 90 Days Qty: 90 3RF pantoprazole 40 mg tablet,delayed release (DR/EC) 40 mg PO DAILY Qty: 90 3RF nitroglycerin 0.4 mg tablet, sublingual 0.4 mg SUBLINGUAL Q5-15M PRN (Reason: chest pain) Qty: 25 0RF Rx Instructions: until response; do not exceed 3 doses per episode levothyroxine 100 mcg tablet 100 mcg PO DAILY Qty: 90 2RF hydroxyzine HCl 25 mg tablet 25 mg PO TID PRN (Reason: anxiety) 90 Days Qty: 270 0RF levothyroxine 200 mcg tablet 200 mcg PO DAILY Qty: 90 3RF Rx Instructions: Take first thing in the morning on an empty stomach. albuterol sulfate [ProAir HFA] 90 mcg/actuation HFA aerosol inhaler 2 puff INHALATION Q6H PRN (Reason: shortness of breath or wheezing) Qty: 8.5 3RF montelukast 10 mg tablet 10 mg PO HS losartan 100 mg tablet 100 mg PO DAILY Discontinued fluticasone propion-salmeterol [Advair Diskus] 100-50 mcg/dose blister with device 1 inh inhalation BID 90 Days Qty: 60 2RF fenofibrate nanocrystallized 48 mg tablet 96 mg PO DAILY Other Ambulatory Orders: Home Medical Equipment (Routine) Location: None Selected Ordered By: Solo Byrd Problem Reconciliation Problems Reviewed?: Yes Patient Discharge Instructions ACTIVITY: Continue current activity DIET: continue same diet Patient Instructions: DI for Pneumonia -- Adult, DI for Sepsis -- Adult, Stop Light Pneumonia, Stop Light Infection Print Language: Indian Providers Primary Care Provider: Provider,Referral Admit Provider: Viktor Alonso Attending Provider: Viktor Alonso
[2025-01-28] MEDS: IPRATROPIUM/ALBUTEROL 3 ML NEB IH (09:59)
[2025-01-28 10:07] VITALS: PULSE 78; PULSE 80
[2025-01-28 10:39] VITALS: BP 160/82; BP 172/88; PULSE 102; PULSE 125; RESP 20; RESP 24; O2SAT 85; O2SAT 92
--- NOTE | 2025-01-28 10:40 | PC.NURSE ---
O2 room air sat was 90%-92% at rest, upon walking to the door O2 sat decreased to 83%-85%, placed patient on 3LNC. patient walked 275 feet, while being on 3LNC his O2 dropped from 91% to 88%-89%. increased O2 to 4LNC and patients O2 sat was 91%-92%.
--- NOTE | 2025-01-30 10:23 | SW/DCPLANNER ---
Phoned patient x2. Left message with name and a call back number. Prasanna Morton
--- NOTE | 2025-01-30 13:28 | CARE MANAGER ---
Patient called back related to hospital discharge. He picked up medications yesterday and is aware of follow up appointments. Denies questions or concerns.
== END 2025-01-28 13:20 | disposition home or self-care (01) | DRG 193 ==
LOC: ER 17:12 → 2ND 17:38
PROVIDERS: Emergency Medicine; Nurse Practitioner Family; Admitting Provider Student in an Organized Health Care Education/Training Program; Emergency Provider Student in an Organized Health Care Education/Training Program; Visit Provider Student in an Organized Health Care Education/Training Program
DX: J15.9 Unspecified bacterial pneumonia (principal); J96.01 Acute respiratory failure with hypoxia; J44.1 Chronic obstructive pulmonary disease with (acute) exacerbation; N17.9 Acute kidney failure, unspecified; I13.0 Hypertensive heart and chronic kidney disease with heart failure and stage 1 through stage 4 chronic kidney disease, or unspecified chronic kidney disease; I50.32 Chronic diastolic (congestive) heart failure; J44.0 Chronic obstructive pulmonary disease with (acute) lower respiratory infection; G47.33 Obstructive sleep apnea (adult) (pediatric); E66.811 Obesity, class 1; N18.30 Chronic kidney disease, stage 3 unspecified; K21.9 Gastro-esophageal reflux disease without esophagitis; E78.5 Hyperlipidemia, unspecified; J43.9 Emphysema, unspecified; I25.10 Atherosclerotic heart disease of native coronary artery without angina pectoris; E89.0 Postprocedural hypothyroidism; Z87.891 Personal history of nicotine dependence; Z95.5 Presence of coronary angioplasty implant and graft; Z79.82 Long term (current) use of aspirin; Z79.890 Hormone replacement therapy; Z79.899 Other long term (current) drug therapy; Z99.89 Dependence on other enabling machines and devices; Z68.34 Body mass index [BMI] 34.0-34.9, adult
CPT/HCPCS: 36415; 71045; 80048; 80053; 82803; 84484; 85007; 85025; 87040; 87070; 87205; 87636; 89220; 93005; 94618; 94640; 94660; 94667; 94760; 94761; 99285; J0456; J0696; J1644; J1956; J2919; J3475; J7050

== ENCOUNTER 2025-03-25 10:30 | Outpatient (CLI) | payer MEDICARE, SELFPAY ==
--- OUTSIDE RECORDS SUMMARY | 2025-03-25 10:51 | XMS_ITS | Clinical Summary ---
Author Organization [facility] Address [address] [place] [address] Care Team Providers Care Accounting Recruiter Name Role Phone Robert Oleary MD Primary [...] - Risk 60-74 years 1-dose series) 2017 [id number] Vaccine (4 - 2024- season) 2024 02/22/2022, [...] Patient has decision-making capacity? Yes Care Teams Accounting Recruiter Relationship Specialty Start Date End Date Robert Oleary MD PCP - General Family Medicine 06/28/23
--- OUTSIDE RECORDS SUMMARY | 2025-03-25 10:51 | XMS_ITS | Encounter Summary ---
Author Organization Healthcare Address [address] [place] [address] Care Team Providers Care Finishing Department Supervisor Name Role Phone Anaid rGoves AUBREY Primary Care Provider [phone]- [phone] Robert Oleary MD Primary Care Provider Rosa vailable Encounter Details Date Type Department Care Team (Late st Contact Info) Description 06/16/2023 Lab Requisition [facility] [address] [place] [address] Fantasma Tejada MD [address] [place] [address] Nontoxic diffuse goiter Social History Tobacco Use [...] 11:06 AM EST) Case Report Cytology Case: [id number] Authorizing Provider: Fantasma Tejada MD Collected: 06/16/20236 Ordering Location: [facility] Received: 06/16/2023 1106 Pathologist: Savana Hardy MD Specimen: Thyroid, [id number] 06/17/2023 11:11 AM EST [facility] Final Diagnosis THYROID, ISTHMUS, FNA (OUTSIDE SLIDES, COLLECTED 05/13/23): - ATYPIA OF UNDETERMINED SIGNIFICANCE - OTHER (BETHESDA CATEGORY III), SEE COMMENT. 06/17/2023 11:11 AM EST [facility] at 1111 EST Comment The specimen is moderately cellular, and shows crowded follicular groups with nuclear enlargement and overlapping. No discernable colloid is noted in the background. Rebiopsy after an appropriate time interval with consideration for molecular testing is suggested. 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 [id number] Received along with a corresponding pathology report from [facility] are 2 slide(s) labeled outside case: [id number] collected on 05/13/2023. 06/17/2023 11:11 AM EST [facility] Fine Needle Aspirate Thyroid structure / Unknown 06/16/2023 11:06 AM EST 06/16/2023 11:06 AM EST us Fantasma Tejada MD LAB PATHOLOGY ORDERABLES Final R esult [facility] [address] [place] [address] documented in this encounter Visit Diagnoses Diagnosis Nontoxic diffuse goiter Goiter, unspecified documented in this encounter Care Teams Finishing Department Supervisor Relationship Specialty Start Date End Date Anaid Groves, READING INTERVENTIONIST [address] [place], [place] [id number] PCP - General 09/25/21 06/27/23 Robert Oleary MD [address] [place] [address] PCP - General Family Medicine 06/28/23 documented as of this encounter
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
--- NOTE | 2025-03-25 13:00 | MR_ITS ---
FINAL REPORT TECHNIQUE: Multiplanar and multisequence imaging of the lumbar spine was obtained without contrast. CLINICAL HISTORY: low back pain PAIN THAT RADIATES DOWN BOTH LEGS FINDINGS: There is retrolisthesis of L5 on S1. Vertebral body height is preserved. The spinal cord ends at the level of L1. There is normal signal intensity within the substance of the distal spinal cord. There are Modic changes at L5-S1. No acute paraspinal abnormality is identified. L1-2: Mild facet osteoarthropathy. No focal disc herniation, central canal stenosis or neuroforaminal narrowing. L2-3: Mild facet osteoarthropathy and mild degenerative endplate changes. L3-4: An annular disc bulge is present with degenerative endplate changes and facet osteoarthropathy. Mild bilateral neuroforaminal narrowing. L4-5: An annular disc bulge is present with degenerative endplate changes and facet osteoarthropathy. Moderate to severe bilateral neuroforaminal narrowing. L5-S1: An annular disc bulge is present with degenerative endplate changes and facet osteoarthropathy. Severe bilateral neuroforaminal narrowing. IMPRESSION: Multilevel degenerative disc disease, most pronounced at L4-5 and L5-S1. Reviewed, Interpreted and Dictated by Brisa Rodrigues MD Transcribed by Hiwot Raman Authenticated and [facility]
== END 2025-03-25 23:59 | disposition home or self-care (01) ==
LOC: RAD 10:31
PROVIDERS: PCP Family Medicine; Visit Provider Nurse Practitioner Family
DX: M51.16 Intervertebral disc disorders with radiculopathy, lumbar region (principal); M51.17 Intervertebral disc disorders with radiculopathy, lumbosacral region; M79.5 Residual foreign body in soft tissue
CPT/HCPCS: 72148; 73552